=== PATIENT | female | born 1935 | race Hispanic/Latino ===

== ENCOUNTER 2017-04-03 10:18 | Emergency (ER) | payer MEDICARE ==
[2017-04-03 10:27] VITALS: BMI 24.1
--- NOTE | 2017-04-03 10:43 | ED PDOC ---
Arrival/HPI - General Chief Complaint: Dizziness/Lightheaded Time Seen by Provider: 04/03/17 10:42 Historian: Patient, Family (Daughter) - History of Present Illness Narrative History of Present Illness (Text): 04/03/17 10:47 A 81 year old female was brought into the emergency department by daughter for further evaluation. Daughter reports patient accidentally took a higher dose of Promethazine with codeine last night. Patient states she felt "woozy and drunk" . Patients symptoms have fully resolved. Patient denies any fever, chills, nausea, vomiting, diarrhea, abdominal pain, chest pain, shortness of breath or any other complaints. PMD: Dr. Beckford Time/Duration: Other (Last night) Symptom Course: Resolved Quality: Other Context: Home Past Medical History - Provider Review Nursing Documentation Reviewed: Yes - Tetanus Immunization Tetanus Immunization: Unknown - Cardiac Hx Pacemaker: No - Pulmonary Hx Respiratory Disorders: No - Neurological Hx Paralysis: No - HEENT Hx HEENT Disorder: No - Renal Hx Renal Disorder: No - Endocrine/Metabolic Hx Endocrine Disorders: Yes Hx Hypothyroidism: Yes - Hematological/Oncological Hx Blood Transfusions: No Hx Blood Transfusion Reaction: No - Integumentary Hx Dermatological Disorder: No - Musculoskeletal/Rheumatological Hx Musculoskeletal Disorders: No - Gastrointestinal Hx Gastrointestinal Disorders: No - Genitourinary/Gynecological Hx Genitourinary Disorders: No - Psychiatric Hx Emotional Abuse: No Hx Physical Abuse: No Hx Substance Use: No - Surgical History Hx Cardiac Catheterization: Yes (stent) Hx Cholecystectomy: Yes Hx Hysterectomy: Yes - Anesthesia Hx Anesthesia Reactions: No Hx Malignant Hyperthermia: No - Suicidal Assessment Feels Threatened In Home Enviroment: No Family/Social History - Physician Review Nursing Documentation Reviewed: Yes Family/Social History: No Known Family HX Smoking Status: Never Smoked Hx Alcohol Use: No Hx Substance Use: No Hx Substance Use Treatment: No Allergies/Home Meds Allergies/Adverse Reactions: Allergies erythromycin base Allergy (Verified 12/07/15 18:01) VOMITING shellfish derived Allergy (Verified 12/07/15 18:01) VOMITING zolpidem tartrate [From Ambien] Allergy (Verified 12/07/15 18:01) RASH Home Medications: Home Meds Medication Instructions Recorded Confirmed Isosorbide Mononitrate [Imdur] 30 mg PO DAILY 03/16/12 04/03/17 Warfarin [Coumadin] 3 mg PO DAILY 03/16/12 04/03/17 Atorvastatin [Lipitor] 20 mg PO DAILY 03/30/15 04/03/17 Losartan [Cozaar] 50 mg PO DAILY 03/30/15 04/03/17 Omeprazole Magnesium [Prilosec Otc] 20 mg PO DAILY 03/30/15 04/03/17 Vit A/Vit C/Vit E/Zinc/Copper 1 tab PO DAILY 03/30/15 04/03/17 [Preservision] Warfarin [Coumadin] 6 mg PO WED 03/30/15 04/03/17 Albuterol/Ipratropium [Combivent 1 spr IH TID 12/07/15 04/03/17 Respimat] Aspirin [[place] Aspirin] 81 mg PO DAILY 12/07/15 04/03/17 Bifidobacterium Infantis [Align] 4 mg PO HS 12/07/15 04/03/17 Calcium Carbonate [Caltrate 600] 600 mg PO DAILY 12/07/15 04/03/17 Eszopiclone [Lunesta] 3 mg PO HS 12/07/15 04/03/17 Levothyroxine Sodium [Synthroid] 125 mcg PO DAILY 12/07/15 04/03/17 Nitroglycerin 0.4 mg SL PRN PRN 12/07/15 04/03/17 Physical Exam - Physical Exam Narrative Physical Exam (Text): - Review of Systems Constitutional: Normal. absent: Fatigue, Weight Change, Fevers Eyes: Normal ENT: Normal Respiratory: Normal absent: SOB, Cough, Sputum Cardiovascular: Normal absent: Chest pain, Palpitations, Syncope Gastrointestinal: Normal absent: Abdominal pain, Diarrhea, Nausea, Vomiting Genitourinary: Normal. absent: Dysuria, Frequency, Hematuria Musculoskeletal: Normal. absent: Arthralgias, Back Pain, Neck Pain Skin: Normal Neurological: Normal absent: Focal Weakness Endocrine: Normal Hemo/Lymphatic: Normal Psychiatric: Normal - Physical exam Patient appears age appropriate, speaking full sentences without difficulty - Systems Exam Head: Present: Atraumatic, Normocephalic Pupils: Present: PERRL Extraocular Muscles: Present: EOMI Conjunctiva: Present: Normal Mouth: Present: Moist Mucous Membranes Neck: Present: Normal Range of Motion. No: MIDLINE TENDERNESS, Paraspinal Tenderness Respiratory/Chest: Present: Clear to Auscultation, Good Air Exchange. No: Respiratory Distress, Accessory Muscle Use, Tachypnic Cardiovascular: Present: Regular Rate and Rhythm, Normal S1, S2, Peripheral Pulses Present. No: Murmurs Abdomen: Present: Normal Bowel Sounds, No: Tenderness, Peritoneal Signs, Rebound, Guarding, Distention Back: Present: Normal Inspection. No: Midline Tenderness, Paraspinal Tenderness Upper Extremity: Present: Normal Inspection. No: Cyanosis, Edema Lower Extremity: Present: Normal Inspection. No: Edema Neurological: Present: GCS=15, Speech Normal, cranial nerves II through XII fully intact with no cerebellar abnormality, neuro-sensory fully intact. No focal neurological deficits. Skin: Present: Warm, Dry, Normal Color. No: Rashes Lymphatic: Present: OX3, NI, NC Psychiatric: Present: Alert, Oriented x 3, Normal Insight, Normal Concentration Vital Signs Reviewed: Yes Vital Signs Temp Pulse Resp BP Pulse Ox 04/03/17 11:07 98 F 75 20 123/71 100 04/03/17 11:04 97 F L 74 19 125/71 100 04/03/17 10:24 105 H 16 143/58 L 97 Blood Pressure: Hypotensive Pulse: Tachycardic Respiratory Rate: Normal Appearance: Positive for: Well-Appearing, Non-Toxic, Comfortable Pain Distress: None Mental Status: Positive for: Alert and Oriented X 3 Finger Stick Blood Glucose: 128 Medical Decision Making ED Course and Treatment: 04/03/17 10:47 Impression: A 81 year old female reports she accidentally took a higher dose of Promethazine with codeine last night. Symptoms fully resolved. On exam, patient appears normal, no focal neurological deficits. Symptoms likely due to medication side effect. Progress Notes: I have discussed the plan with the patient, who expresses understanding. Patient in agreement with plan to be discharged home. Patient is stable for discharge. Patient was instructed to follow up with physician or return if symptoms worsen or new concerning symptoms arise. - Scribe Statement The provider has reviewed the documentation as recorded by the Mary Desai Provider Scribe Attestation: All medical record entries made by the Scribe were at my direction and personally dictated by me. I have reviewed the chart and agree that the record accurately reflects my personal performance of the history, physical exam, medical decision making, and the department course for this patient. I have also personally directed, reviewed, and agree with the discharge instructions and disposition. Disposition/Present on Arrival - Present on Arrival Any Indicators Present on Arrival: No History of DVT/PE: No History of Uncontrolled Diabetes: No Urinary Catheter: No History of Decub. Ulcer: No History Surgical Site Infection Following: None - Disposition Have Diagnosis and Disposition been Completed?: Yes Diagnosis: Medication adverse effect Disposition: HOME/ ROUTINE Disposition Time: 10:42 Patient Plan: Discharge Condition: GOOD Discharge Instructions (ExitCare): Promethazine/Codeine (By mouth) Additional Instructions: PLEASE RETURN TO THE EMERGENCY DEPARTMENT FOR NEW OR WORSENING SYMPTOMS. RETURN RIGHT AWAY IF YOU CANNOT FOLLOW UP WITH YOUR PRIMARY CARE DOCTOR, CLINIC, OR SPECIALIST IN 1-2 DAYS. Referrals: Fredy Beckford MD [Staff Provider] - Follow up with primary
[2017-04-03 11:13] VITALS: BP 123/71; PULSE 75; RESP 20; TEMP 98; O2SAT 100
== END 2017-04-03 11:09 | disposition home or self-care (01) ==
LOC: ED 10:18
DX: R42 Dizziness and giddiness (principal); T43.3X5A Adverse effect of phenothiazine antipsychotics and neuroleptics, initial encounter; Y92.009 Unspecified place in unspecified non-institutional (private) residence as the place of occurrence of the external cause

== ENCOUNTER 2017-04-17 12:52 | Inpatient (IN) | payer MEDICARE ==
--- NOTE | 2017-04-17 13:03 | ED PDOC ---
Arrival/HPI - General Chief Complaint: Weakness/Neurological Deficit Time Seen by Provider: 04/17/17 12:57 Past Medical History - Provider Review Nursing Documentation Reviewed: Yes - Infectious Disease Hx of Infectious Diseases: None - Tetanus Immunization Tetanus Immunization: Unknown - Cardiac Hx Pacemaker: No - Pulmonary Hx Respiratory Disorders: No - Neurological Hx Paralysis: No - HEENT Hx HEENT Disorder: No - Renal Hx Renal Disorder: No - Endocrine/Metabolic Hx Endocrine Disorders: Yes Hx Hypothyroidism: Yes - Hematological/Oncological Hx Blood Transfusions: No Hx Blood Transfusion Reaction: No - Integumentary Hx Dermatological Disorder: No - Musculoskeletal/Rheumatological Hx Musculoskeletal Disorders: No - Gastrointestinal Hx Gastrointestinal Disorders: No - Genitourinary/Gynecological Hx Genitourinary Disorders: No - Psychiatric Hx Emotional Abuse: No Hx Physical Abuse: No Hx Substance Use: No - Surgical History Hx Cardiac Catheterization: Yes (stent) Hx Cholecystectomy: Yes Hx Hysterectomy: Yes - Anesthesia Hx Anesthesia: Yes Hx Anesthesia Reactions: No Hx Malignant Hyperthermia: No - Suicidal Assessment Feels Threatened In Home Enviroment: No Family/Social History - Physician Review Nursing Documentation Reviewed: Yes Family/Social History: Unknown Family HX Smoking Status: Never Smoked Hx Alcohol Use: No Hx Substance Use: No Hx Substance Use Treatment: No Allergies/Home Meds Allergies/Adverse Reactions: Allergies erythromycin base Allergy (Verified 12/07/15 18:01) VOMITING shellfish derived Allergy (Verified 12/07/15 18:01) VOMITING zolpidem tartrate [From Ambien] Allergy (Verified 12/07/15 18:01) RASH Home Medications: Home Meds Medication Instructions Recorded Confirmed Isosorbide Mononitrate [Imdur] 30 mg PO DAILY 03/16/12 04/17/17 Warfarin [Coumadin] 3 mg PO DAILY 03/16/12 04/17/17 Atorvastatin [Lipitor] 20 mg PO DAILY 03/30/15 04/17/17 Losartan [Cozaar] 50 mg PO DAILY 03/30/15 04/17/17 Omeprazole Magnesium [Prilosec Otc] 20 mg PO DAILY 03/30/15 04/17/17 Vit A/Vit C/Vit E/Zinc/Copper 1 tab PO DAILY 03/30/15 04/17/17 [Preservision] Warfarin [Coumadin] 6 mg PO WED 03/30/15 04/17/17 Albuterol/Ipratropium [Combivent 1 spr IH TID 12/07/15 04/17/17 Respimat] Aspirin [[place] Aspirin] 81 mg PO DAILY 12/07/15 04/17/17 Bifidobacterium Infantis [Align] 4 mg PO HS 12/07/15 04/17/17 Calcium Carbonate [Caltrate 600] 600 mg PO DAILY 12/07/15 04/17/17 Eszopiclone [Lunesta] 3 mg PO HS 12/07/15 04/17/17 Levothyroxine Sodium [Synthroid] 125 mcg PO DAILY 12/07/15 04/17/17 Nitroglycerin 0.4 mg SL PRN PRN 12/07/15 04/17/17 amLODIPine [Norvasc] 5 mg PO DAILY 04/17/17 04/17/17 Physical Exam Vital Signs Temp Pulse Resp BP Pulse Ox 04/17/17 13:33 98.4 F 86 19 134/93 H 95 04/17/17 13:18 94 H 20 134/93 H 97 Medical Decision Making ED Course and Treatment: 04/17/17 12:55 Impression: Differential Diagnosis included but are not limited to: Plan: -- Head CT -- Chest X-ray -- EKG -- Labs -- Reassess and disposition Prior Visits: Notes and results from previous visits were reviewed. On 04/03/17 patient was seen in the emergency department for further evaluation after taking stronger dose of promethazine with codeine. Patient was discharged home. Progress Notes: PROCEDURE: CT HEAD WITHOUT CONTRAST. Radiator Specialist : Max Contreras MD Report Date : 04/17/2017 13:29:47 COMPARISON: 12/07/2015 FINDINGS: HEMORRHAGE:No intracranial hemorrhage. BRAIN:No mass effect or edema. Moderate diffuse atrophy. Moderate periventricular and deep chronic microvascular white matter ischemic change. No evidence of acute infarct. VENTRICLES:Unremarkable. No hydrocephalus. CALVARIUM:Unremarkable. PARANASAL SINUSES:Unremarkable as visualized. No significant inflammatory changes. MASTOID AIR CELLS:Unremarkable as visualized. No inflammatory changes. OTHER FINDINGS:None. IMPRESSION:No intracranial mass, hemorrhage or evidence of acute infarct. No interval change from prior head CT examination Findings in this examination were discussed, by telephone, with Dr. Lyle at 1:27 p.m. on 04/17/2017 - Lab Interpretations Lab Results: 04/17/17 13:02 04/17/17 13:02 Lab Results 04/17/17 13:02: Sodium 129 L, Potassium 4.0, Chloride 94 L, Carbon Dioxide 26, Anion Gap 13, BUN 12, Creatinine 0.7, Est GFR ( Amer) > 60, Est GFR (Non- Af Amer) > 60, Random Glucose 111 H, Calcium 8.7, Total Bilirubin 0.8, AST 46 H , ALT 34, Alkaline Phosphatase 84, Troponin I < 0.01, Total Protein 7.2, Albumin 3.6, Globulin 3.7, Albumin/Globulin Ratio 1.0 L, Triglycerides 61, Cholesterol 113 L, LDL Cholesterol Direct 38, HDL Cholesterol 48 04/17/17 13:02: PT 31.9 H*, INR 2.95 H, APTT 52.9 H 04/17/17 13:02: WBC 11.8 H D, RBC 3.70, Hgb 11.1 L, Hct 32.5 L, MCV 87.8, MCH 30.0, MCHC 34.2, RDW 14.3, Plt Count 200, MPV 9.8, Neutrophils % (Manual) Pending, Lymphocytes % (Manual) Pending, Monocytes % (Manual) Pending I have reviewed the lab results: Yes - RAD Interpretation Radiology Orders: 04/17/17 12:57 HEAD W/O (CODE STROKE) [CT] Stat CHEST PORTABLE [RAD] Stat - EKG Interpretation Interpreted by ED Physician: Yes - Scribe Statement The provider has reviewed the documentation as recorded by the Torresibtaylor [place] Provider Scribe Attestation: All medical record entries made by the Scribtaylor were at my direction and personally dictated by me. I have reviewed the chart and agree that the record accurately reflects my personal performance of the history, physical exam, medical decision making, and the department course for this patient. I have also personally directed, reviewed, and agree with the discharge instructions and disposition. Disposition/Present on Arrival - Present on Arrival History of DVT/PE: No History of Uncontrolled Diabetes: No Urinary Catheter: No History of Decub. Ulcer: No History Surgical Site Infection Following: None - Disposition Referrals: Fredy Beckford MD [Primary Care Provider] - Follow up with primary
[2017-04-17 13:19] LABS: ALBUMIN 3.6 g/dL (3.0-4.8); ALT/SGPT 34 U/L (7-56); AST/SGOT 46 U/L (15-39); BLOOD UREA NITROGEN 12 mg/dL (7-21); CALCIUM 8.7 mg/dL (8.4-10.5); GFR AFRICAN-AMERICAN > 60; GFR NON-AFRICAN AMERICAN > 60; HDL CHOLESTEROL 48 mg/dL (29-60)
[2017-04-17 13:22] LABS: HEMOGLOBIN 11.1 gm/dL (12.0-16.0); MEAN CELL VOLUME 87.8 fL (80.0-105.0); MEAN CORPUSCULAR HGB CONC 34.2 g/dl (31.0-37.0); MEAN PLATELET VOLUME 9.8 fl (7.0-11.0); PLATELET COUNT 200 10^3/uL (120.0-450.0); RED CELL DISTRIBUTION WIDTH 14.3 % (11.5-14.5); WHITE BLOOD COUNT 11.8 10^3/ul (4.5-11.0)
[2017-04-17 13:23] LABS: INR 2.95 (0.93-1.08); PARTIAL THROMBOPLASTIN TIME 52.9 Seconds (23.7-30.8); PROTHROMBIN TIME 31.9 Seconds (9.9-11.8)
[2017-04-17 13:30] LABS: LDL CHOLESTEROL 38 mg/dL (0-129); TROPONIN I < 0.01 ng/mL
--- NOTE | 2017-04-17 13:31 | CT ---
PROCEDURE: CT HEAD WITHOUT CONTRAST. HISTORY: Code Stroke COMPARISON: 12/07/2015 TECHNIQUE: Axial computed tomography images were obtained through the head/brain without intravenous contrast. Radiation dose: Total exam DLP = 779.93 mGy-cm. This CT exam was performed using one or more of the following dose reduction techniques: Automated exposure control, adjustment of the mA and/or kV according to patient size, and/or use of iterative reconstruction technique. FINDINGS: HEMORRHAGE: No intracranial hemorrhage. BRAIN: No mass effect or edema. Moderate diffuse atrophy. Moderate periventricular and deep chronic microvascular white matter ischemic change. No evidence of acute infarct. VENTRICLES: Unremarkable. No hydrocephalus. CALVARIUM: Unremarkable. PARANASAL SINUSES: Unremarkable as visualized. No significant inflammatory changes. MASTOID AIR CELLS: Unremarkable as visualized. No inflammatory changes. OTHER FINDINGS: None. IMPRESSION: No intracranial mass, hemorrhage or evidence of acute infarct. No interval change from prior head CT examination Findings in this examination were discussed, by telephone, with Dr. Lyle at 1:27 p.m. on 04/17/2017.
[2017-04-17 13:47] LABS: LYMPHOCYTE 10 % (22.0-35.0); MONOCYTE 23 % (1.0-6.0); NEUTROPHIL 67 % (50.0-70.0); PLATELET ESTIMATE NORMAL (NORMAL)
[2017-04-17 13:48] LABS: LARGE PLATELETS PRESENT
--- NOTE | 2017-04-17 13:54 | ED PDOC ---
Arrival/HPI <Rah Holloway - Last Filed: 04/17/17 17:36> <Jesus Guzman DO - Last Filed: 04/17/17 21:55> - General Chief Complaint: Weakness/Neurological Deficit Time Seen by Provider: 04/17/17 12:57 - History of Present Illness Narrative History of Present Illness (Text): 04/17/17 13:50 Pt is an 81 year old female who presents to emergency department via EMS and accompanied by daughter for "stroke like symptoms" occurring 20 minutes prior to arrival. Pt reports feeling weakness in her left hand with associated numbness primarily in her pinky and ring finger and speech slurring prior to arrival. Pt states her symptoms had resolved by the time she had arrived in the emergency department. She reports feeling similar symptoms 3 days prior lasting only 20 minutes. Pt reports symptom onset was at rest with both episodes. Pt reports that the weakness in her left hand and slurred speech subsided on their own and the numbness resolved with rubbing of her hand. Patient denies head trauma, easy bruising, palpitations, changes in vision, chest pain, shortness of breath, fever or headache. Patient and family deny any previous history of these symptoms outside of the past few days. (Rah Holloway) Past Medical History - Provider Review Nursing Documentation Reviewed: Yes - Infectious Disease Hx of Infectious Diseases: None - Tetanus Immunization Tetanus Immunization: Unknown - Cardiac Hx Cardiac Disorders: Yes Hx Cardiac Arrhythmia: Yes (paroxysmal atrial fibrillation) Hx Pacemaker: No - Pulmonary Hx Respiratory Disorders: No - Neurological Hx Paralysis: No - HEENT Hx HEENT Disorder: No - Renal Hx Renal Disorder: No - Endocrine/Metabolic Hx Endocrine Disorders: Yes Hx Hypothyroidism: Yes - Hematological/Oncological Hx Blood Transfusions: No Hx Blood Transfusion Reaction: No - Integumentary Hx Dermatological Disorder: No Hx Squamous Cell Carcinoma: Yes - Musculoskeletal/Rheumatological Hx Musculoskeletal Disorders: No - Gastrointestinal Hx Gastrointestinal Disorders: No - Genitourinary/Gynecological Hx Genitourinary Disorders: No - Psychiatric Hx Emotional Abuse: No Hx Physical Abuse: No Hx Substance Use: No - Surgical History Hx Cardiac Catheterization: Yes (stent) Hx Cholecystectomy: Yes Hx Hysterectomy: Yes - Anesthesia Hx Anesthesia: Yes Hx Anesthesia Reactions: No Hx Malignant Hyperthermia: No - Suicidal Assessment Feels Threatened In Home Enviroment: No <Rah Holloway - Last Filed: 04/17/17 17:36> Family/Social History - Physician Review Nursing Documentation Reviewed: Yes Family/Social History: Unknown Family HX Smoking Status: Never Smoked Hx Alcohol Use: No Hx Substance Use: No Hx Substance Use Treatment: No <Rah Holloway - Last Filed: 04/17/17 17:36> Allergies/Home Meds <Rah Holloway - Last Filed: 04/17/17 17:36> <Jesus Guzman DO - Last Filed: 04/17/17 21:55> Allergies/Adverse Reactions: Allergies erythromycin base Allergy (Verified 04/17/17 18:09) VOMITING shellfish derived Allergy (Verified 04/17/17 18:09) VOMITING zolpidem tartrate [From Ambien] Allergy (Verified 04/17/17 18:09) RASH Home Medications: Home Meds Medication Instructions Recorded Confirmed Isosorbide Mononitrate [Imdur] 30 mg PO DAILY 03/16/12 04/17/17 Warfarin [Coumadin] 3 mg PO DAILY 03/16/12 04/17/17 Atorvastatin [Lipitor] 20 mg PO DAILY 03/30/15 04/17/17 Losartan [Cozaar] 50 mg PO DAILY 03/30/15 04/17/17 Omeprazole Magnesium [Prilosec Otc] 20 mg PO DAILY 03/30/15 04/17/17 Vit A/Vit C/Vit E/Zinc/Copper 1 tab PO DAILY 03/30/15 04/17/17 [Preservision] Warfarin [Coumadin] 6 mg PO WED 03/30/15 04/17/17 Albuterol/Ipratropium [Combivent 1 spr IH TID 12/07/15 04/17/17 Respimat] Aspirin [[place] Aspirin] 81 mg PO DAILY 12/07/15 04/17/17 Bifidobacterium Infantis [Align] 4 mg PO HS 12/07/15 04/17/17 Calcium Carbonate [Caltrate 600] 600 mg PO DAILY 12/07/15 04/17/17 Eszopiclone [Lunesta] 3 mg PO HS 12/07/15 04/17/17 Levothyroxine Sodium [Synthroid] 125 mcg PO DAILY 12/07/15 04/17/17 Nitroglycerin 0.4 mg SL PRN PRN 12/07/15 04/17/17 amLODIPine [Norvasc] 5 mg PO DAILY 04/17/17 04/17/17 Review of Systems - Review of Systems Constitutional: absent: Fatigue, Fevers Eyes: absent: Vision Changes ENT: absent: Hearing Changes Respiratory: absent: SOB, Cough Cardiovascular: absent: Chest Pain, Palpitations Gastrointestinal: absent: Abdominal Pain, Stool Changes Skin: absent: Rash, Pruritis Neurological: Speech Changes (previous slurring of speech today ), Facial Droop (previous to presentation ). absent: Focal Weakness Psychiatric: absent: Anxiety, Depression <Rah Holloway - Last Filed: 04/17/17 17:36> Physical Exam Vital Signs Reviewed: Yes Temperature: Afebrile Blood Pressure: Hypertensive Pulse: Tachycardic Respiratory Rate: Normal Appearance: Positive for: Well-Appearing Pain Distress: None Mental Status: Positive for: Alert and Oriented X 3 Finger Stick Blood Glucose: 125 - Systems Exam Head: Present: Atraumatic, Normocephalic Pupils: Present: PERRL Extroacular Muscles: Present: EOMI Conjunctiva: Present: Normal Neck: Present: Normal Range of Motion Respiratory/Chest: Present: Clear to Auscultation, Good Air Exchange. No: Respiratory Distress, Accessory Muscle Use Cardiovascular: Present: Regular Rate and Rhythm, Normal S1, S2. No: Murmurs Abdomen: Present: Normal Bowel Sounds. No: Tenderness, Distention, Peritoneal Signs Upper Extremity: Present: Normal Inspection, NORMAL PULSES, Neurovascularly Intact. No: Cyanosis, Edema Lower Extremity: Present: Normal Inspection. No: Edema Neurological: Present: GCS=15, CN II-XII Intact, Speech Normal, Motor Func Grossly Intact, Normal Sensory Function Skin: Present: Warm, Dry, Normal Color. No: Rashes Psychiatric: Present: Alert, Oriented x 3, Normal Insight, Normal Concentration <Rah Holloway - Last Filed: 04/17/17 17:36> Medical Decision Making - Lab Interpretations I have reviewed the lab results: Yes - RAD Interpretation Drawing In Machine Tender Helper: Radiologist - EKG Interpretation Interpreted by ED Physician: Yes Type: 12 lead EKG <Rah Holloway - Last Filed: 04/17/17 17:36> <Jesus Guzman DO - Last Filed: 04/17/17 21:55> ED Course and Treatment: 04/17/17 15:09 Impression: Pt is a 81 year old female with past medical history significant for paroxysmal atrial fibrillation, CAD s/p angioplasty with stents x2 and macular degeneration who presents with an episode 20 minutes prior to arrival of left sided upper extremity weakness and slurring of speech. Differential Diagnosis included but are not limited to: - TIA Plan: - Imaging: CT head without contrast, CXR, EKG - Labs: CBC, CMP, Coag - - Reassess and disposition Progress Notes: - CT report results: PROCEDURE: CT Head without contrast Chief Media Officer : Max Contreras MD Report Date : 04/17/2017 13:29:47 HISTORY:Code Stroke COMPARISON: 12/07/2015 HEMORRHAGE:No intracranial hemorrhage. BRAIN:No mass effect or edema. Moderate diffuse atrophy. Moderate periventricular and deep chronic microvascular white matter ischemic change. No evidence of acute infarct. VENTRICLES:Unremarkable. No hydrocephalus. CALVARIUM:Unremarkable. PARANASAL SINUSES:Unremarkable as visualized. No significant inflammatory changes. MASTOID AIR CELLS:Unremarkable as visualized. No inflammatory changes. OTHER FINDINGS:None. IMPRESSION:No intracranial mass, hemorrhage or evidence of acute infarct. No interval change from prior head CT examination Findings in this examination were discussed, by telephone, with Dr. Lyle at 1:27 p.m. on 04/17/2017. - Admission - Dr. Riggs with Dr. Lucia regarding admission and is agreeable (Rah Holloway) In agreement with resident note, which includes further HPI details. Patient was seen and evaluated with resident, came up with plan and treatment together. (Jesus Guzman DO) - Lab Interpretations Lab Results: 04/17/17 13:02 04/17/17 13:02 Lab Results 04/17/17 14:00: Blood Type Confirm A POSITIVE 04/17/17 13:02: Sodium 129 L, Potassium 4.0, Chloride 94 L, Carbon Dioxide 26, Anion Gap 13, BUN 12, Creatinine 0.7, Est GFR ( Amer) > 60, Est GFR (Non- Af Amer) > 60, Random Glucose 111 H, Calcium 8.7, Total Bilirubin 0.8, AST 46 H , ALT 34, Alkaline Phosphatase 84, Troponin I < 0.01, Total Protein 7.2, Albumin 3.6, Globulin 3.7, Albumin/Globulin Ratio 1.0 L, Triglycerides 61, Cholesterol 113 L, LDL Cholesterol Direct 38, HDL Cholesterol 48 04/17/17 13:02: PT 31.9 H*, INR 2.95 H, APTT 52.9 H 04/17/17 13:02: WBC 11.8 H D, RBC 3.70, Hgb 11.1 L, Hct 32.5 L, MCV 87.8, MCH 30.0, MCHC 34.2, RDW 14.3, Plt Count 200, MPV 9.8, Neutrophils % (Manual) 67, Lymphocytes % (Manual) 10 L, Monocytes % (Manual) 23 H, Platelet Evaluation Normal, Large Platelets Present 04/17/17 12:56: Blood Type A POSITIVE, Antibody Screen Negative, BBK History Checked No verified bt - RAD Interpretation Radiology Orders: 04/17/17 12:57 HEAD W/O (CODE STROKE) [CT] Stat CHEST PORTABLE [RAD] Stat - EKG Interpretation EKG Interpretation (Text): 04/17/17 15:25 Rate of 74 bpm, NSR, No ST elevations or T wave inversions - similar to previous ekg (Rah Holloway) - Medication Orders Current Medication Orders: Acetaminophen (Tylenol 325mg Tab) 650 mg PO Q6H PRN PRN Reason: Fever >100.4 F Amlodipine Besylate (Norvasc) 5 mg PO DAILY [facility] Aspirin (Ecotrin) 81 mg PO DAILY [facility] Aspirin (Aspirin) 325 mg PO DAILY [facility] Atorvastatin Calcium (Lipitor) 20 mg PO DIN [facility] Last Admin: 04/17/17 17:40 Dose: 20 mg Sodium Chloride (Sodium Chloride 0.9%) 1,000 mls @ 50 mls/hr IV .Q20H [facility] Last Admin: 04/17/17 16:20 Dose: 50 mls/hr Isosorbide Mononitrate (Imdur) 30 mg PO DAILY [facility] Losartan Potassium (Cozaar) 50 mg PO DAILY [facility] Last Admin: 04/17/17 16:21 Dose: 50 mg Pantoprazole Sodium (Protonix Ec Tab) 40 mg PO 0630 [facility] Warfarin Sodium (Coumadin) 3 mg PO DAILY [facility] PRN Reason: Protocol Last Admin: 04/17/17 16:24 Dose: 3 mg Warfarin Sodium (Coumadin) 6 mg PO WED [facility] PRN Reason: Protocol Discontinued Medications Aspirin (Aspirin) 325 mg PO STAT STA Stop: 04/17/17 14:56 Last Admin: 04/17/17 15:40 Dose: 325 mg Sodium Chloride (Sodium Chloride 0.9%) 1,000 mls @ 100 mls/hr IV .Q10H [facility] Last Admin: 04/17/17 16:19 Dose: 100 mls/hr Pneumococcal Polyvalent Vaccine (Pneumovax 23 Vaccine) 0.5 ml IM .ONCE ONE Stop: 04/17/17 21:19 rTPA Inclusion/Exclusion - Refusal of Treatment Patient Refused Treatment: No - Inclusion Criteria for Altepase Patient is 18 years or Older: Yes The Clinical Diagnosis of Ischemic Stroke That is Causing a Potentially Disabling Neurological Deficit: No Time of Onset is Well Established to be Less Than 270 Minute Before Treatment Would Begin: Yes Risk/Benefit Discussed With Patient/Family Member Present: Yes <Rah Holloway - Last Filed: 04/17/17 17:36> - Refusal of Treatment Patient Refused Treatment: No - Inclusion Criteria for Altepase Patient is 18 years or Older: Yes The Clinical Diagnosis of Ischemic Stroke That is Causing a Potentially Disabling Neurological Deficit: No Time of Onset is Well Established to be Less Than 270 Minute Before Treatment Would Begin: Yes Risk/Benefit Discussed With Patient/Family Member Present: Yes <Jesus Guzman DO - Last Filed: 04/17/17 21:55> NIHSS Scale ([place]) - How Severe is the Stoke Baseline Level of Consciousness: 0=Alert LOC to Questions: 0=Both comments correct LOC to commands: 0=Obeys both correctly Best Gaze: 0=Normal Visual: 0=No visual loss Facial: 0=Normal Motor Arm - Left: 0=No drift Motor Arm - Right: 0=No drift Motor Leg - Left: 0=No drift Motor Leg - Right: 0=No drift Limb Ataxia: 0=Absent Sensory: 0=Normal Best Language: 0=No aphasia Dysarthia: 0=Normal articulation Extinction & Inattention (Neglect): 0=Normal, no object Score: 0 Risk Level: No Stroke Risk <Rah Holloway - Last Filed: 04/17/17 17:36> - PA / BMX RIDER / Resident Statement SEBASTIEN has reviewed & agrees with the documentation as recorded. SEBASTIEN has examined the patient and agrees with the treatment plan. <Rah Holloway - Last Filed: 04/17/17 17:36> Disposition/Present on Arrival - Present on Arrival Any Indicators Present on Arrival: No History of DVT/PE: No History of Uncontrolled Diabetes: No Urinary Catheter: No History of Decub. Ulcer: No History Surgical Site Infection Following: None - Disposition Have Diagnosis and Disposition been Completed?: Yes Disposition Time: 15:00 Patient Plan: Admission <Rah Holloway - Last Filed: 04/17/17 17:36> - Disposition Disposition Time: 14:00 <Jesus Guzman DO - Last Filed: 04/17/17 21:55> - Disposition Diagnosis: TIA (transient ischemic attack) Disposition: HOSPITALIZED Patient Problems: Current Active Problems Problem Status Onset TIA (transient ischemic attack) Acute Condition: STABLE
--- NOTE | 2017-04-17 13:55 | CP.PCM.PN ---
Subjective - Date & Time of Evaluation Date of Evaluation: 04/17/17 Time of Evaluation: 13:05 - Subjective Subjective: Code Stroke A code stroke was called at 1257 and the residents responded STAT. NIHSS: 2 (Left leg drifts but doesn't hit bed, and Left leg has mild-mod sensation loss) Objective - Vital Signs/Intake and Output Vital Signs (last 24 hours): Temp Pulse Resp BP Pulse Ox 98.4 F 86 19 134/93 H 95 04/17/17 13:33 04/17/17 13:33 04/17/17 13:33 04/17/17 13:33 04/17/17 13:33 - Labs Labs: 04/17/17 13:02 04/17/17 13:02 PT 31.9 Seconds (9.9-11.8) H* 04/17/17 13:02 INR 2.95 (0.93-1.08) H 04/17/17 13:02 APTT 52.9 Seconds (23.7-30.8) H 04/17/17 13:02 - Constitutional Appears: Well, Non-toxic, No Acute Distress - Head Exam Head Exam: ATRAUMATIC, NORMAL INSPECTION, NORMOCEPHALIC - Eye Exam Eye Exam: EOMI, Normal appearance, PERRL Pupil Exam: NORMAL ACCOMODATION - ENT Exam ENT Exam: Mucous Membranes Moist, Normal Exam - Neck Exam Neck Exam: Full ROM - Respiratory Exam Respiratory Exam: Clear to Ausculation Bilateral, NORMAL BREATHING PATTERN. absent: Accessory Muscle Use, Respiratory Distress - Cardiovascular Exam Cardiovascular Exam: RRR, +S1, +S2. absent: Gallop, JVD, Rubs, Murmur - GI/Abdominal Exam GI & Abdominal Exam: Soft, Normal Bowel Sounds. absent: Tenderness - Extremities Exam Extremities Exam: Full ROM, Normal Inspection. absent: Pedal Edema, Tenderness - Neurological Exam Neurological Exam: Alert, Awake, CN II-XII Intact, Normal Gait, Oriented x3, Reflexes Normal Neuro motor strength exam: Left Upper Extremity: 5, Right Upper Extremity: 5, Left Lower Extremity: 5, Right Lower Extremity: 5 Additional comments: NIHSS: 2 (Left leg drifts but doesn't hit bed, and Left leg has mild-mod sensation loss) pt not confused, no facial droop, no difficulty with speech - Psychiatric Exam Psychiatric exam: Normal Affect, Normal Mood - Skin Skin Exam: Normal Color, Warm. absent: Cyanosis, Diaphoretic, Pallor
--- NOTE | 2017-04-17 14:43 | RAD ---
HISTORY: CVA alert COMPARISON: 12/07/2015 FINDINGS: LUNGS: No active pulmonary disease. PLEURA: No significant pleural effusion identified, no pneumothorax apparent. CARDIOVASCULAR: Normal. OSSEOUS STRUCTURES: No significant abnormalities. VISUALIZED UPPER ABDOMEN: Normal. OTHER FINDINGS: None. IMPRESSION: No active disease.
[2017-04-17] MEDS ORDERED: Sodium Chloride 0.9% 1,000 ML IV SCH (15:15)
[2017-04-17] MEDS: Sodium Chloride 0.9% 1,000 ML IV SCH (16:20)
--- NOTE | 2017-04-17 20:29 | CP.PCM.PN ---
Subjective - Date & Time of Evaluation Date of Evaluation: 04/17/17 Time of Evaluation: 20:28 - Subjective Subjective: S:Nurse calls and tells that bladder scan shows accumulaton of 900 cc of urine. Patient is not able to pass urine. Has discomfort in abdomen. Medical record was reviewed. O: Last Vital Signs 3 Temp 98.6 F 04/17/17 20:32 Pulse 80 04/17/17 21:08 Resp 18 04/17/17 20:32 BP 138/62 04/17/17 20:32 Pulse Ox 95 04/17/17 17:00 Awake, alert , not in distress. LUNGS: Normal breathing pattern. ABD: No distension. A:Urinary retention. P:Tang catheter was inserted. Objective - Vital Signs/Intake and Output Vital Signs (last 24 hours): Temp Pulse Resp BP Pulse Ox 98.6 F 78 18 138/62 95 04/17/17 17:00 04/17/17 17:00 04/17/17 17:00 04/17/17 17:00 04/17/17 17:00 - Medications Medications: Current Medications Acetaminophen (Tylenol 325mg Tab) 650 mg PO Q6H PRN PRN Reason: Fever >100.4 F Amlodipine Besylate (Norvasc) 5 mg PO DAILY [facility] Aspirin (Ecotrin) 81 mg PO DAILY [facility] Aspirin (Aspirin) 325 mg PO DAILY [facility] Atorvastatin Calcium (Lipitor) 20 mg PO DIN [facility] Last Admin: 04/17/17 17:40 Dose: 20 mg Sodium Chloride (Sodium Chloride 0.9%) 1,000 mls @ 50 mls/hr IV .Q20H [facility] Last Admin: 04/17/17 16:20 Dose: 50 mls/hr Isosorbide Mononitrate (Imdur) 30 mg PO DAILY [facility] Losartan Potassium (Cozaar) 50 mg PO DAILY [facility] Last Admin: 04/17/17 16:21 Dose: 50 mg Pantoprazole Sodium (Protonix Ec Tab) 40 mg PO 0630 [facility] Warfarin Sodium (Coumadin) 3 mg PO DAILY [facility] PRN Reason: Protocol Last Admin: 04/17/17 16:24 Dose: 3 mg Warfarin Sodium (Coumadin) 6 mg PO WED [facility] PRN Reason: Protocol - Labs Labs: PT 31.9 Seconds (9.9-11.8) H* 04/17/17 13:02 INR 2.95 (0.93-1.08) H 04/17/17 13:02 APTT 52.9 Seconds (23.7-30.8) H 04/17/17 13:02
[2017-04-17 21:18] VITALS: BMI 21.2
[2017-04-17] MEDS ORDERED: Pneumococcal 23-Valent Vaccine IM ONE (21:18)
[2017-04-17 21:35] LABS: TROPONIN I < 0.01 ng/mL
--- NOTE | 2017-04-18 03:30 | HP ---
HISTORY OF PRESENT ILLNESS: The patient is 81 years old who was brought in by the family. According to daughter who lives with mom that she had episode of slurred speech and left facial and right-sided weakness that happened on Wednesday, but it resolved within minute or so, they did not pay much attention. However, she never had stroke in the past, so similar situation happened this morning that she started to have slurred speech and facial weakness along with right-sided weakness, when she noticed second time, daughter called ambulance and was brought to the emergency room. By the time she reached ER, her symptoms are all resolved. *------* was initiated. The patient was started on aspirin and she is already on Coumadin and is therapeutic, but being admitted for further evaluation. PAST MEDICAL HISTORY: She has significant past medical history of: 1. Chronic atrial fibrillation. 2. History of hypertension. 3. Hyperlipidemia. 4. 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 5. Coronary artery disease status post angioplasty. 6. Hypothyroidism. ALLERGIES: SHE IS ALLERGIC TO ERYTHROMYCIN, SHELLFISH, ZOLPIDEM. MEDICATIONS AT HOME: She is on Combivent, atorvastatin 20 mg daily, aspirin 81 mg daily, *------* 4 mg at bedtime, isosorbide 30 mg daily, Lunesta 3 mg at bedtime, levothyroxine 125 mcg daily, omeprazole, nitroglycerin as needed, Cozaar 50 mg daily, Coumadin 6 mg on Wednesday, Warfarin 3 mg otherwise daily, amlodipine 5 mg daily. PAST SURGICAL HISTORY: She is status post appendectomy and cholecystectomy. She also had angioplasty in remote past. SOCIAL HISTORY: She is single, lives with her daughter who is mentally challenged. History of smoking in the remote past, but quit 10 to 15 years ago. She used to smoke 7 to 8 cigarettes daily. REVIEW OF SYSTEMS: Significant for generalized weakness, otherwise, she is feeling okay now. No history of nausea or vomiting. No diarrhea, no hemoptysis. No hematemesis. No chest pain. No shortness of breath. PHYSICAL EXAMINATION: GENERAL: She is awake, and alert, able to communicate. VITAL SIGNS: She is afebrile, pulse 86, respiration 19, blood pressure 134/93. HEENT: She has symmetrical face. Nonicteric sclerae. [place] conjunctiva. LUNGS: Bilateral fair air flow. No rhonchi or crackle. HEART: S1 and S2 audible. ABDOMEN: Soft, nontender. No rebound and no guarding. NEUROLOGIC: She is awake and oriented. LABORATORY DATA: WBC is 11.8, hemoglobin 11.1, hematocrit 32.5 and platelet of 200. Her PT is 31.9, INR 2.95. Chemistry: Sodium 129, potassium 4.0, chloride 94, CO2 of 26, BUN 12, creatinine 0.7, blood sugar of 111. LFTs are within normal limits. Has a total cholesterol 113, LDL 38, HDL 48. CT scan of the brain was done that shows no intracranial mass, hemorrhage or evidence of acute infarct. X-ray of the chest no active disease. ASSESSMENT: 1. Transient ischemic attack, etiology unclear. The patient is in sinus rhythm. She is therapeutic. 2. Hypertension. 3. Hyperlipidemia. 4. Coronary artery disease status post angioplasty. 5. Paroxysmal atrial fibrillation. PLAN: I will renew the patient's usual medications. I will order for carotid Doppler. Cardiology consult by Dr. Schilling is requested. I will order for MRI of the brain also and follow up PT/INR in a.m. Out bed to chair and physical therapy has been requested. Beka Lucia MD
[2017-04-18] MEDS: Pantoprazole 40 mg EC Tab PO SCH (05:53)
[2017-04-18 07:12] LABS: BASO # 0.02 K/mm3 (0.0-2.0); BASO % 0.2 % (0.0-3.0); EOS # 0.1 (0.0-0.7); EOS % 0.6 % (1.5-5.0); GRAN # 5.39 (1.4-6.5); GRAN % 61.9 % (50.0-68.0); HEMOGLOBIN 11.9 gm/dL (12.0-16.0); LYMPH # 1.5 (1.2-3.4); LYMPH % 16.8 % (22.0-35.0); MEAN CELL VOLUME 87.3 fL (80.0-105.0); MEAN CORPUSCULAR HEMOGLOBIN 29.6 pg (25.0-35.0); MEAN CORPUSCULAR HGB CONC 33.9 g/dl (31.0-37.0); MEAN PLATELET VOLUME 9.6 fl (7.0-11.0); MONO # 1.8 (0.1-0.6); MONO % 20.5 % (1.0-6.0); PLATELET COUNT 191 10^3/uL (120.0-450.0); RBC 4.02 10^6/uL (3.5-6.1); RED CELL DISTRIBUTION WIDTH 14.1 % (11.5-14.5); WHITE BLOOD COUNT 8.7 10^3/ul (4.5-11.0)
[2017-04-18 07:16] LABS: PROTHROMBIN TIME 30.9 Seconds (9.9-11.8)
[2017-04-18 07:28] LABS: INR 2.86 (0.93-1.08)
[2017-04-18 07:40] LABS: ALB/GLOB RATIO 0.9 (1.1-1.8); ALBUMIN 3.5 g/dL (3.0-4.8); ALT/SGPT 41 U/L (7-56); AST/SGOT 49 U/L (15-39); BLOOD UREA NITROGEN 8 mg/dL (7-21); CALCIUM 8.7 mg/dL (8.4-10.5); GFR AFRICAN-AMERICAN > 60; GFR NON-AFRICAN AMERICAN > 60
[2017-04-18 07:53] LABS: FREE T4 1.01 ng/dL (0.78-2.19)
[2017-04-18 08:07] LABS: TROPONIN I < 0.01 ng/mL
[2017-04-18] MEDS ORDERED: Gadodiamide 287 MG/ML VIAL (15ML) IV ONE (11:00)
--- NOTE | 2017-04-18 11:36 | CARD ---
APPROVED REPORT EKG Measurement Heart [id number] <Conclusion> Normal sinus rhythm Normal ECG
[2017-04-18] MEDS: Sodium Chloride 0.9% 1,000 ML IV SCH ×2 (11:47→15:27)
--- NOTE | 2017-04-18 13:08 | CP.PCM.CON ---
History of Present Illness - History of Present Illness History of Present Illness: Mrs. Le is an 81-year-old woman with a past medical history of atrial fibrillation (on coumadin), hypertension, dyslipidemia who has been having episodes of left arm stiffness/weakness and dysarthria that are recurrent. According to the patient and her daughter, there is a reported episode of a fall during which the patient may have hit her head 2 weeks ago. This happened in the middle of the night, but the patient's daughter found her on the floor after she yelled for help. The patient does not recall all of the episodes and thinks sometimes she dreams these episodes instead of them being reality. She denies headache, nausea, visual changes, current weakness, or sensory changes. Review of Systems - Review of Systems All systems: reviewed and no additional remarkable complaints except Past Patient History - Infectious Disease Hx of Infectious Diseases: None - Tetanus Immunizations Tetanus Immunization: Unknown - Past Social History Smoking Status: Former Smoker - CARDIAC Hx Cardiac Disorders: Yes Hx Cardia Arrhythmia: Yes (paroxysmal atrial fibrillation) Hx Pacemaker: No - PULMONARY Hx Respiratory Disorders: Yes (SMOKED CIGARETTES. QUIT USED TO SMOKE 7CIG/D) Hx Pneumonia: Yes - NEUROLOGICAL Hx Neurological Disorder: No - HEENT Hx HEENT Problems: Yes Hx Deafness: Yes ([place]) Hx Macular Degeneration: Yes - RENAL Hx Chronic Kidney Disease: No - ENDOCRINE/METABOLIC Hx Endocrine Disorders: Yes Hx Hypothyroidism: Yes - HEMATOLOGICAL/ONCOLOGICAL Hx Blood Disorders: Yes Hx Cancer: Yes (bladder,SQUAMOUS CELL CA L NECK AREA) - INTEGUMENTARY Hx Dermatological Problems: No Hx Squamous Cell: Yes (NECK) - MUSCULOSKELETAL/RHEUMATOLOGICAL Hx Musculoskeletal Disorders: Yes Hx Falls: Yes (2 WEEKS AGO FELL.) Hx Unsteady Gait: Yes - GASTROINTESTINAL Hx Gastrointestinal Disorders: Yes Hx Gall Bladder Disease: Yes (CHOLECYSTECTOMY) Other/Comment: CONSTIPATION - GENITOURINARY/GYNECOLOGICAL Hx Genitourinary Disorders: Yes (URINARY RETENTION,HYSTERECTOMY) Hx Urinary Tract Infection: Yes Other/Comment: SOME INCONTINENCY WEARS DEPENDS - PSYCHIATRIC Hx Psychophysiologic Disorder: Yes (SMOKED CIGARETTES H/O) Hx Emotional Abuse: No Hx Physical Abuse: No Hx Substance Use: No - SURGICAL HISTORY Hx Surgeries: Yes (CARDIAC STENTS X 2,HYSTERECTOMY) Hx Cardiac Catheterization: Yes (stentX2) Hx Cholecystectomy: Yes Hx Hysterectomy: Yes - ANESTHESIA Hx Anesthesia: Yes Hx Anesthesia Reactions: No Hx Malignant Hyperthermia: No Meds Allergies/Adverse Reactions: Allergies Allergy/AdvReac Type Severity Reaction Status Date / Time erythromycin base Allergy VOMITING Verified 04/17/17 18:09 shellfish derived Allergy VOMITING Verified 04/17/17 18:09 zolpidem tartrate Allergy RASH Verified 04/17/17 18:09 [From Ambien] - Medications Medications: Current Medications Acetaminophen (Tylenol 325mg Tab) 650 mg PO Q6H PRN PRN Reason: Fever >100.4 F Last Admin: 04/17/17 22:18 Dose: 650 mg Amlodipine Besylate (Norvasc) 5 mg PO DAILY [facility] Last Admin: 04/18/17 11:49 Dose: 5 mg Atorvastatin Calcium (Lipitor) 20 mg PO DIN [facility] Last Admin: 04/17/17 17:40 Dose: 20 mg Sodium Chloride (Sodium Chloride 0.9%) 1,000 mls @ 50 mls/hr IV .Q20H [facility] Last Admin: 04/18/17 11:47 Dose: 50 mls/hr Isosorbide Mononitrate (Imdur) 30 mg PO DAILY [facility] Last Admin: 04/18/17 11:49 Dose: 30 mg Levothyroxine Sodium (Synthroid) 150 mcg PO 0600 [facility] Losartan Potassium (Cozaar) 50 mg PO DAILY [facility] Last Admin: 04/18/17 11:49 Dose: 50 mg Pantoprazole Sodium (Protonix Ec Tab) 40 mg PO 0630 [facility] Last Admin: 04/18/17 05:53 Dose: 40 mg Physical Exam - Constitutional Appears: Well - Head Exam Head Exam: ATRAUMATIC, NORMAL INSPECTION, NORMOCEPHALIC - Eye Exam Eye Exam: EOMI, Normal appearance, PERRL - ENT Exam ENT Exam: Mucous Membranes Moist, Normal Exam - Respiratory Exam Respiratory Exam: Clear to Auscultation Bilateral, NORMAL BREATHING PATTERN - Cardiovascular Exam Cardiovascular Exam: REGULAR RHYTHM, +S1, +S2 - GI/Abdominal Exam GI & Abdominal Exam: Normal Bowel Sounds, Soft. absent: Tenderness - Rectal Exam Rectal Exam: Deferred - Extremities Exam Extremities exam: Positive for: normal inspection - Back Exam Back exam: NORMAL INSPECTION - Neurological Exam Neurological exam: Abnormal Gait, CN II-XII Intact, Oriented x3 Additional comments: left upper extremity pronator drift and difficulty with fine motor movements. Reflexes are brisk on the left as compared with the right. Plantar response is downgoing bilaterally. Right side strength is normal. - Psychiatric Exam Psychiatric exam: Normal Affect, Normal Mood - Skin Skin Exam: Dry, Intact, Normal Color, Warm Results - Vital Signs Recent Vital Signs: Last Vital Signs Temp 98.2 F 04/18/17 12:00 Pulse 71 04/18/17 12:00 Resp 20 04/18/17 12:00 BP 150/70 04/18/17 12:00 Pulse Ox 95 04/18/17 06:00 - Labs Result Diagrams: 04/18/17 07:00 04/18/17 07:00 Labs: Laboratory Results - last 24 hr 04/17/17 04/18/17 04/18/17 21:00 07:00 07:00 WBC 8.7 D RBC 4.02 Hgb 11.9 L Hct 35.1 L MCV 87.3 MCH 29.6 MCHC 33.9 RDW 14.1 Plt Count 191 MPV 9.6 Gran % 61.9 Lymph % (Auto) 16.8 L [place] % (Auto) 20.5 H Eos % (Auto) 0.6 L Baso % (Auto) 0.2 Gran # 5.39 Lymph # 1.5 [place] # 1.8 H Eos # 0.1 Baso # 0.02 PT 30.9 H* INR 2.86 H Sodium Potassium Chloride Carbon Dioxide Anion Gap BUN Creatinine Est GFR ( Amer) Est GFR (Non-Af Amer) Random Glucose Calcium Total Bilirubin AST ALT Alkaline Phosphatase Lactate Dehydrogenase 811 H Total Creatine Kinase 149 Troponin I < 0.01 Total Protein Albumin Globulin Albumin/Globulin Ratio Free T4 TSH 3rd Generation 04/18/17 04/18/17 07:00 07:00 WBC RBC Hgb Hct MCV MCH MCHC RDW Plt Count MPV Gran % Lymph % (Auto) [place] % (Auto) Eos % (Auto) Baso % (Auto) Gran # Lymph # [place] # Eos # Baso # PT INR Sodium 135 Potassium 3.9 Chloride 104 Carbon Dioxide 23 Anion Gap 12 BUN 8 Creatinine 0.6 Est GFR ( Amer) > 60 Est GFR (Non-Af Amer) > 60 Random Glucose 85 Calcium 8.7 Total Bilirubin 0.7 AST 49 H ALT 41 Alkaline Phosphatase 99 Lactate Dehydrogenase 800 H Total Creatine Kinase 126 Troponin I < 0.01 Total Protein 7.2 Albumin 3.5 Globulin 3.8 Albumin/Globulin Ratio 0.9 L Free T4 1.01 TSH 3rd Generation 10.00 H - Imaging and Cardiology MRI - head Status: Image reviewed by me, Report reviewed by me (Subdural hemorrhage with subarachnoid and some intraparenchymal contusion likely due to injury on the right frontal/temporal region.) Assessment & Plan (1) Subdural hemorrhage Assessment and Plan: This is likely traumatic and is also associated with some contusions and subarachoind blood. The episodes the patient is describing are likely epileptifom in nature. I recommend the followin. Stop coumadin and antiplatelet agents 2. EEG awake and drowsy for 30 mins 3. Start Keppra 500 mg BID 4[address] Repeat CT head in 24 hours without contrast 5. If CT head is stable, may start heparin sub q for DVT Px 6. PT/OT eval 7. Treat headache with Tylenol Thank you. Status: Acute Priority: Medium
[2017-04-18 13:13] LABS: HDL CHOLESTEROL 54 mg/dL (29-60)
[2017-04-18 13:24] LABS: LDL CHOLESTEROL 46 mg/dL (0-129)
--- NOTE | 2017-04-18 13:33 | MRI ---
PROCEDURE: MRI of the brain dated 04/18/2017 HISTORY: TIA. COMPARISON: Comparison made with CT scan brain 04/17/2017. TECHNIQUE: Multiplanar, multisequence MR images of the brain were obtained with and without intravenous contrast enhancement. Approximately 15 cc Omniscan injected for this procedure. This study is limited by motion artifact FINDINGS: HEMORRHAGE: The current study reveals a thin right-sided subdural hematoma which predominant overlies the parietal and right posterior frontal as well as temporal lobes extending to the convexity. In addition, there is some is subarachnoid hemorrhage within the caps of the posterior frontal and parietal sulci as well as what may represent a small amount of cortical surface hemorrhagic contusional changes and some deoxyhemoglobin the latter of which exhibits dark T2 signal. . . DWI: Some faint restricted diffusion changes are seen along the superior convexity in 2 locations on either along the cortical surface and or within the small hemorrhages themselves. BRAIN PARENCHYMA: Moderate-significant diffuse/confluent chronic white matter ischemic changes seen extending peripherally into the deep and subcortical white matter both cerebral hemispheres. There is some extension of these changes into the white matter tracts of both basal nuclei. Multiple more discrete deep and subcortical white matter as well as bilateral basal nuclei and probably some brainstem ischemic changes are also felt to be present. Moderate -significant atrophy. ENHANCEMENT: There appears to be some minimal on dural surface enhancement in the right posterior temporoparietal region which is also felt to be present though and in some areas difficult to distinguish from methemoglobin within this subdural hematoma that exhibits a thin linear the slightly less of bright T1 signal. This suspected dural enhancement is likely reactive. VENTRICLES: No evidence of obstructive hydrocephalus. CRANIUM: No acute calvarial fractures. ORBITS: Changes of right-sided cataract surgery again noted. PARANASAL SINUSES/MASTOIDS: Clear VASCULAR SYSTEM: Visualized major vascular flow voids at skull base are patent. OTHER FINDINGS: None IMPRESSION: Limited motion degraded study There is a small subdural hematoma over the right temporal and right posterior frontoparietal region with small amount of subarachnoid hemorrhage predominately located within the superior sulci right posterior frontoparietal region. There may also be a small posterior frontoparietal cortical surface at hemorrhagic contusion . Moderate to significant chronic white matter, basal nuclei as well as lesser brainstem ischemic changes. Moderate -significant atrophy. Note these findings were discussed with Dr. Cooley at approximately 12:35 p.m. with written down and read back verification.
[2017-04-18] MEDS ORDERED: Phytonadione 10 mg/ml Inj (Adult) SC STA (14:56)
--- NOTE | 2017-04-18 17:03 | CON ---
DATE: 04/17/2017 REASON FOR CONSULTATION: History of coronary artery disease, status post stent 7 years ago, admitted with slurring of speech, possible TIA. BRIEF CLINICAL HISTORY: An 81-year-old female with past medical history of paroxysmal atrial fibrillation on Coumadin, hypertension, hyperlipidemia, history of coronary artery disease, status post angioplasty 7 years ago, stent by [facility] at [facility], history of head and neck tumor, status post radiation in the past, hypothyroidism, came in here because the patient felt slurring of speech twice, so called the daughter who brought here. The patient denies any chest pain, denies any shortness of breath, denies any palpation, but complained that slurring of speech completely resolved after the patient brought to the hospital. PAST MEDICAL HISTORY: Significant for paroxysmal atrial fibrillation on anticoagulation, history of coronary artery disease, history of stent 7 or 8 years ago, being followed by Dr. Beckford for medicine at [place] and Dr. Griselda Perez for cardiology, history of hypertension, hyperlipidemia, history of head and neck cancer, status post radiation in the past, hypothyroidism. CARDIAC WORKUP: The patient states that 3-4 months ago, had extensively worked up by Dr. Griselda Perez *------* a stress test was done and told it was a negative. ALLERGIES: ERYTHROMYCIN, SHELL FISH AND AMBIEN. SOCIAL HISTORY: Smoker many years ago, quit 8 years ago. Denies any history of alcohol abuse. CURRENT MEDICATIONS: The patient is taking Combivent, atorvastatin, aspirin at bedtime, Cozaar, Lunesta, Coumadin 5 mg Wednesday and 3 mg daily, amlodipine 5 mg daily. PAST SURGICAL HISTORY: Significant for appendectomy, cholecystectomy in the past and angioplasty 7 or 8 years ago. REVIEW OF SYSTEMS: As per HPI. PHYSICAL EXAMINATION VITAL SIGNS: Temperature afebrile, heart rate 72, blood pressure 115/70. HEENT: PERRLA intact. NECK: Supple. No carotid bruit. No thyromegaly. CHEST: Clear to auscultation. HEART: S1 and S2 regular. ABDOMEN: Soft. EXTREMITIES: Clubbing and cyanosis negative. LABORATORY DATA: Blood workup as follows: WBC 8.7, hemoglobin 11.9, hematocrit 35.1, platelet count of 191. Chemistry shows sodium 135, potassium 3.9, chloride 104, carbon dioxide 20, anion gap of 12, BUN 8, creatinine is 0.7. TSH 10, troponin 0.01 x3 negative. INR 2.8, since yesterday it has been 2.95. IMPRESSION: An 81-year-old female with past medical history significant for coronary artery disease, status post PTCA 7 or 8 years ago, ex-smoker 9 years ago, history of coronary stent 7 years ago, paroxysmal atrial fibrillation, therapeutic INR, complaining of slurring of speech, possible transient ischemic attack on top of therapeutic INR, diabetes, hypertension, hyperlipidemia, hypothyroidism. RECOMMENDATIONS: Consider MRI to prove the patient really had stroke. We will get echo with bubble study to rule out any PFO as I doubt TIA. The patient states that the stress test and echo [address] [facility]isel[facility] is essentially normal. We will get lipid profile, TSH, hemoglobin A1c. Thank you *------* taking care of the patient. We will follow with you. Further recommendations during the hospital course. Lillian Schilling MD
--- NOTE | 2017-04-18 21:54 | PN ---
DATE: 04/18/2017 HISTORY OF PRESENT ILLNESS: Ms. Le is an 81-year-old female, who was found on the floor by the daughter in the house. She is on Coumadin for atrial fibrillation. CAT scan of the head was negative in the ER. MRI of the brain done today showed left temporoparietal subdural hematoma. There was small subarachnoid hemorrhage. She was evaluated by Neurology. She is therapeutic on Coumadin. She is also on aspirin. She developed hematuria today when she came back from MRI. Grossly bloody urine in the Tang catheter now. No fever or no cough with expectoration. PAST MEDICAL HISTORY: Atrial fibrillation, history of hypertension, hyperlipidemia, history of head and neck cancer status post radiation, coronary artery disease status post angioplasty. ALLERGIES: ERYTHROMYCIN, SHELL FISH, AND ZOLPIDEM. PAST SURGICAL HISTORY: Appendectomy, cholecystectomy, and angioplasty. SOCIAL HISTORY: Lives at home with the daughter. PERSONAL HISTORY: Ex-smoker. Quit 15 years ago. No history of alcohol abuse. MEDICATIONS: Tylenol 650 q. 6 hour p.r.n., Norvasc 5 mg daily, Lipitor 20 mg daily, Lunesta at bedtime, Imdur 20 mg daily, Keppra 500 mg p.o. b.i.d., Synthroid 150 mcg daily, Losartan 50 mg daily, Protonix 40 mg daily, IV *------* 50 mg daily, aspirin 81 mg daily, Coumadin 3 mg daily. REVIEW OF SYSTEMS: As per HPI. Rest of the 12-point review of systems reviewed and negative. PHYSICAL EXAMINATION: GENERAL: Comfortable in bed, in no acute distress. VITAL SIGNS: Temperature 98.1, blood pressure 158/82, heart rate 84 per minute, respiratory rate 18 per minute. HEENT: Normal. Oral mucosa moist. Pallor positive. NECK: No lymphadenopathy. CHEST: Air entry present and equal bilaterally. No added sounds. CARDIOVASCULAR: S1, S2 normal. No murmur. No gallop. ABDOMEN: Soft and nontender. No hepatosplenomegaly. EXTREMITIES: No edema. GENITOURINARY: Tang catheter draining bloody urine. SPINE: Nontender. LABORATORY DATA: White count 11.8 decreased to 8.7, hemoglobin 11.9, hematocrit 35.1, platelet count 191, granulocytes 61%, lymphocytes 16.8%. Sodium 135, potassium 3.9, BUN 8, creatinine 0.6, LDH 800. TSH 10. ASSESSMENT AND PLAN: 1. Right temporoparietal subdural hematoma, subarachnoid hemorrhage small. 2. Atrial fibrillation. 3. On anticoagulation. 4. Therapeutic INR. 5. Anemia. 6. Leukocytosis. 7. Hematuria. PLAN: She has small right parietal subdural hematoma and subarachnoid hemorrhage on MRI. Neurology consultation with Dr. Malone appreciated. She is on Coumadin for atrial fibrillation. She is currently in sinus rhythm. We will discontinue Coumadin, discontinue aspirin. We will give vitamin K 10 mg subq. We will repeat PT INR in the morning. Anticoagulation can be started once the hematoma is stable. Since it is a small bleed, I will hold FFT now. Neuro check q. 4 hours. She had a left hematuria, bladder irrigation. IV fluid at 80 mL an hour for 6 hours. Urology consultation with Dr. Hanna requested. Continue Lipitor 20 mg daily and Keppra 500 mg p.o. b.i.d. Continue other cardiac medications. Isosorbide mono (Imdur) 30 mg daily for hypothyroidism. We will continue Synthroid 150 mcg daily, Protonix 40 mg daily. Discussed with the staff nurse, discussed with the patient, discussed with the daughter at bedside. Sonal Cooley MD
[2017-04-18] MEDS: ESZOPICLONE 3 MG PO SCH (21:59)
[2017-04-18] MEDS ORDERED: Home Med 1 UNIT PO SCH (22:00)
--- NOTE | 2017-04-18 22:56 | CON ---
GENITOURINARY CONSULTATION DATE: 04/18/2017 CHIEF COMPLAINT: Urinary retention. HISTORY OF PRESENT ILLNESS: This is a 81-year-old female who was admitted with history of TIA x2. Nurses noted she had not voided all day, they did a bladder scan on her, there was over a 1000 mL in her bladder. She was not in any acute distress. A Tang catheter was placed, a 1000 mL was drained, and then clamped and subsequently 1800 mL drained. Since then, she has put out 2400 mL, the urine was slightly bloody. No fever or chills. She is nondiabetic. *------* CAT scan showed no intracranial hemorrhage. No evidence of any acute infarcts. The urine is currently clear. Her creatinine is 0.6. I am going to order a renal ultrasound to make sure there is no hydro. I discussed with the daughter and the patient the significance of having this much urine in and not being uncomfortable and that usually indicates a chronic condition and would recommended the Tang catheter be capped and left in when she is discharged to follow up in the office in several weeks, at which point I will arrange the urodynamics on her and can also teach her intermittent catheterization. PAST MEDICAL HISTORY: Significant for chronic atrial fibrillation, she is on Coumadin, hypertension, hyperlipidemia, past history of some type of head and neck tumor treated with radiation, coronary artery disease, she has had angioplasties done. ALLERGIES: SHE HAS ALLERGIES TO ERYTHROMYCIN, SHELLFISH AND AMBIEN. MEDICATIONS: At home, she is on Combivent, Lipitor, Lunesta, Cozaar, levothyroxine, Coumadin and Norvasc. PAST SURGICAL HISTORY: She has had prior appendectomies and cholecystectomies. SOCIAL HISTORY: She no longer smokes, having quit 15 years ago. She used to smoke less than half a pack a day. REVIEW OF SYSTEMS: Significant for generalized weakness. She has no symptoms of *------* head, eye, ears, nose and throat. No cardiac, respiratory or GI symptoms. No symptoms referable to her skin. LABORATORY DATA: Shows a white count of 8700. She currently is on no antibiotics, but since the Tang will be indwelling, I would not treat it unless she had evidence of fever or high white count. IMPRESSION AND PLAN: Chronic retention. I would keep the Tang indwelling on discharge. She is to follow up in our office in approximately 2 weeks for urodynamics and also I will teach her intermittent catheterization, so she does not have to have the Tang indwelling and will see what kind of return of bladder function she has. Hematuria after drainage of chronic retention is not uncommon due to some of the submucosal veins bleeding after the hydrostatic pressure is released. I am going to order renal ultrasound just to check on any possible hydronephrosis. Artis Hanna MD
[2017-04-19] MEDS: Sodium Chloride 0.9% 1,000 ML IV SCH (03:42)
[2017-04-19] MEDS: Pantoprazole 40 mg EC Tab PO SCH (06:08)
[2017-04-19] MEDS: Levothyroxine 150 MCG TAB PO SCH (06:09)
[2017-04-19 06:38] LABS: BASO # 0.03 K/mm3 (0.0-2.0); BASO % 0.4 % (0.0-3.0); EOS # 0.1 (0.0-0.7); EOS % 0.8 % (1.5-5.0); HEMOGLOBIN 11.6 gm/dL (12.0-16.0); LYMPH # 1.4 (1.2-3.4); LYMPH % 18.3 % (22.0-35.0); MEAN CELL VOLUME 88.4 fL (80.0-105.0); MEAN CORPUSCULAR HEMOGLOBIN 29.2 pg (25.0-35.0); MEAN PLATELET VOLUME 9.9 fl (7.0-11.0); MONO # 1.4 (0.1-0.6); MONO % 17.5 % (1.0-6.0); PLATELET COUNT 215 10^3/uL (120.0-450.0); RBC 3.97 10^6/uL (3.5-6.1); RED CELL DISTRIBUTION WIDTH 14.2 % (11.5-14.5); WHITE BLOOD COUNT 7.8 10^3/ul (4.5-11.0)
[2017-04-19 06:41] LABS: ALB/GLOB RATIO 0.9 (1.1-1.8); ALBUMIN 3.4 g/dL (3.0-4.8); ALT/SGPT 43 U/L (7-56); AST/SGOT 56 U/L (15-39); BLOOD UREA NITROGEN 9 mg/dL (7-21); CALCIUM 8.7 mg/dL (8.4-10.5); GFR AFRICAN-AMERICAN > 60; GFR NON-AFRICAN AMERICAN > 60
[2017-04-19 06:43] LABS: INR 2.17 (0.93-1.08); PROTHROMBIN TIME 23.4 Seconds (9.9-11.8)
--- NOTE | 2017-04-19 10:10 | US ---
PROCEDURE: Ultrasound of the Kidneys HISTORY: r/o hydro COMPARISON: None available. TECHNIQUE: Sonogram of the kidneys. FINDINGS: RIGHT KIDNEY: Measures: 9.3 x 4.1 x 4.6 cm. Normal in size, contour and echogenicity. No stone, solid mass lesion or hydronephrosis visualized. LEFT KIDNEY: Measures: 12.0 x 3.5 x 5.6 yes cm. Normal in size, contour and echogenicity. No stone, solid mass lesion or hydronephrosis visualized. OTHER FINDINGS: None. IMPRESSION: Unremarkable renal sonogram.
--- NOTE | 2017-04-19 11:35 | US ---
PROCEDURE: Bilateral carotid artery duplex ultrasound HISTORY: Carotid stenosis syncope PHYSICIAN(S): Max Dickson MD. TECHNIQUE: Duplex sonography and color-flow Doppler were used to evaluate the carotid bifurcations and limited segments of the vertebral arteries bilaterally. FINDINGS: There is mild to moderate focal echogenic plaque noted at the carotid bifurcations bilaterally. The peak systolic velocity in the proximal right internal carotid artery is 95 cm/sec. This corresponds to a 20 to 39% proximal right ICA stenosis. Mildly elevated systolic velocities are noted in the proximal right external carotid artery. There is antegrade flow in the dominant right vertebral artery. The peak systolic velocity in the proximal left internal carotid artery is 90 cm/sec. This corresponds to a 20 to 39% proximal left ICA stenosis. Normal systolic velocities are noted in the proximal left external carotid artery. There is antegrade flow in the small left vertebral artery. IMPRESSION: 1. Bilateral 20-39% proximal ICA stenoses. 2. Antegrade flow in both vertebral arteries.
--- NOTE | 2017-04-19 14:26 | CARD ---
APPROVED REPORT EXAM: Two-dimensional and M-mode echocardiogram with Doppler and color Doppler. 2D DIMENSIONS Left Atrium (2D)3.7 (1.6-4.0cm)IVSd1.0 (0.7-1.1cm) LVDd3.6 (3.9-5.9cm)PWd0.9 (0.7-1.1cm) LVDs2.2 (2.5-4.0cm)FS (%) 38.5 % LVEF (%)69.6 (>50%) M-Mode DIMENSIONS Aortic Root2.20 (2.2-3.7cm)Aortic Cusp Exc.1.30 (1.5-2.0cm) Aortic Valve AoV Peak Epdhzqvk362.0cm/Artem Peak GR.15mmHg Mitral Valve MV E Svmlguhv39.8cm/sMV A Xmpjjuya96.1cm/sE/A ratio1.4 TDI E/Lateral E'0.0E/Medial E'0.0 Tricuspid Valve TR Peak Lqhfzgwo300us/sRAP [id number] Peak Gr.29mmHg [id number] LEFT VENTRICLE The left ventricle is normal size. There is borderline concentric left ventricular hypertrophy. The left ventricular function is normal.EF-65-70% There is normal LV segmental wall motion. The left ventricular diastolic function is normal. No left ventricle thrombus noted on this study. There is no ventricular septal defect visualized. There is no left ventricular aneurysm. There is no mass noted in the left ventricle. RIGHT VENTRICLE The right ventricle is mildly dilated. There is normal right ventricular wall thickness. The right ventricular systolic function is normal. ATRIA The left atrium is borderline dilated in long axis The right atrium is borderline dilated in [place] The interatrial septum is intact with no evidence for an atrial septal defect, by colr flow and Bubble study. AORTIC VALVE The aortic valve is thickened but opens well. There is mild aortic regurgitation. There is no aortic valvular stenosis. There is no aortic valvular vegetation. MITRAL VALVE The mitral valve is thickened but opens well. Mitral regurgitation is mild. There is no mitral valve stenosis. There is no evidence of mitral valve prolapse. TRICUSPID VALVE The tricuspid valve leaflets are thickened , but open well. There is mild to moderate tricuspid regurgitation.RVSP-39 mmof hg. There is no tricuspid valve stenosis. There is no tricuspid valve prolapse or vegetation. PULMONIC VALVE The pulmonic valve is mildly thickened. There is trace pulmonic valvular regurgitation. There is no pulmonic valvular stenosis. GREAT VESSELS The aortic root is normal in size. The ascending aorta is normal in size. The pulmonary artery is normal. The IVC is normal in size and collapses >50% with inspiration. PERICARDIAL EFFUSION There is no pleural effusion. There is no pericardial effusion. <Conclusion> There is borderline concentric left ventricular hypertrophy. The left ventricular function is normal.EF-65-70% The right ventricle is mildly dilated. The right ventricular systolic function is normal. There is mild aortic regurgitation. There is no aortic valvular stenosis. Mitral regurgitation is mild. There is mild to moderate tricuspid regurgitation.RVSP-39 mmof hg. There is no pericardial effusion. The interatrial septum is intact with no evidence for an atrial septal defect, by colr flow and Bubble study.
--- NOTE | 2017-04-19 14:49 | PN ---
SUBJECTIVE: The patient is an 81-year-old female who is seen and examined. She complained of generalized weakness, otherwise doing well. No focal deficits. Eating and tolerating. PHYSICAL EXAMINATION VITAL SIGNS: The patient is afebrile. Pulse is 94, respirations are 18, and blood pressure is 129/71. LUNGS: Bilateral fair airflow. No rhonchi or crackles. HEENT: S1 and S2 audible. ABDOMEN: Soft and nontender. No rebound. No guarding. NEUROLOGIC: The patient is awake and alert. Moves all extremity. LABORATORY DATA: WBC is 7.8, hemoglobin is 11.6, hematocrit is 35.1, and platelet count is 215. PT is 23.4 and INR is 2.17. Chemistries: Sodium of 134, potassium of 4.1, chloride of 103, CO2 of 25, BUN of 9, creatinine of 0.6, and blood sugar of 83. TSH is 10 and her T4 is 1.01. LDH is 800. DIAGNOSTIC DATA: She had a MRI of the brain done that shows small subdural hematoma, over the right temporal on the right posterior frontotemporal region with small amount of subarachnoid hemorrhage predominately located within the right posterior frontoparietal region. There is a possibility of posterior frontoparietal cortical hemorrhagic continue, lrytrfej-uk-hgcndq chronic white matter disease, and ischemic changes in the brain stem. Carotid Doppler was done on 04/17/2017 that showed a bilateral carotid 20% to 39%. proximal ICA. ASSESSMENT AND PLAN: 1. Brief period of slurred speech and focal deficit, but completely resolved. 2. Small subdural hematoma on the right temporal and posterior frontoparietal region. 3. Paroxysmal atrial fibrillation. 4. Hypertension. 5. Hypothyroidism. 6. Brief episode of hematuria. 7. Coronary artery disease, status post angioplasty. PLAN: The patient's Coumadin was on hold because of this recent hemorrhage, her hear rate is under good control. I will discuss with the neurologist that how long anticoagulant has to be held. The patient's TSH is suppressed, however T4 is within range give her age and history of atrial fibrillation, I will just repeat TSH and check T3 levels. We will follow up echocardiogram and I will discuss with reinforcing steel worker and neurologist. Beka Lucia MD [facility] # [id number]
--- NOTE | 2017-04-19 17:40 | PN ---
DATE: 04/19/2017 REASON FOR CONSULTATION AND FOLLOWUP: History of coronary artery status post stent several years ago, admitted with slurring of speech, possible TIA, cardia evaluation. BRIEF CLINICAL HISTORY: An 81-year-old female with past medical history significant for paroxysmal atrial fibrillation, on Coumadin admitted with normal sinus, hypertension, hyperlipidemia, therapeutic INR, history of coronary artery disease status post stent 7 years ago being followed by Dr. Griselda Perez yesterday admitted with slurring of the speech. The patient denies any chest pain, shortness of breath, or any palpitation. PHYSICAL EXAMINATION: GENERAL: The patient is lying flat in the bed, not in apparent distress. VITAL SIGNS: Temperature afebrile, heart rate is 78, and blood pressure 129/71. HEENT: PERRLA. Extraocular muscles are intact. NECK: Supple. No carotid bruits or thyromegaly. HEART: S1 and S2. Regular. CHEST: Clear to auscultation. ABDOMEN: Soft. EXTREMITIES: Clubbing and cyanosis negative. LABORATORY DATA: Blood workup as follows: WBC 7.1, hemoglobin 11.6, hematocrit 35.1, and platelet count 215. Chemistry shows sodium 134, potassium 4.1, chloride 103, carbon dioxide of 25, anion gap of 11, BUN 9, and creatinine 0.7. Total protein 7.2, albumin 3.5, albumin-globulin ratio of 0.9, total cholesterol 121, triglycerides 65, LDL 46, and HDL 54. TSH 10. IMPRESSION: 1. Hypothyroidism. 2. No evidence of acute myocardial infarction. Troponin 0.0 x3 negative. 3. History of coronary artery disease, status post stent in the past. 4. History of transient ischemic attack in the past. 5. Paroxysmal atrial fibrillation, on anticoagulation; INR therapeutic, yesterday was 2.86, day before was 2.95, today is 2.17. transient ischemic attack type of symptoms. DIAGNOSTIC DATA: Brain MRI shows rxftxnwf-mc-qermoyqjzpf atrophy, xybggyut-ae-iusupjjbfoo chronic white matter basal nuclei, as well as left brainstem ischemic changes noted. There is small subdural hematoma over the right temporal and right posterior frontoparietal region with a small amount of subarachnoid hemorrhage, predominantly located within the superior sulci, intracerebral ICV and intracerebral bleed. Bilateral carotid Duplex shows 20-39% bilateral ischemia with no significant flow limiting stenosis noted. RECOMMENDATIONS: We will hold Coumadin, neurologic evaluation, yesterday increased levothyroxine from 125 to 150. Continue adequate control of blood pressure. Followup echo. Followup bilateral carotid Duplex scan. We will follow with you. Thank you doctor for providing the opportunity in taking care of the patient, Magda Le. Lillian Schilling MD
[2017-04-19] MEDS: ESZOPICLONE 3 MG PO SCH (21:58)
[2017-04-20] MEDS: Pantoprazole 40 mg EC Tab PO SCH (05:30)
[2017-04-20] MEDS: Levothyroxine 150 MCG TAB PO SCH (05:30)
[2017-04-20 06:15] VITALS: O2SAT 97
[2017-04-20 06:50] LABS: INR 1.25 (0.93-1.08); PROTHROMBIN TIME 13.5 Seconds (9.9-11.8)
--- NOTE | 2017-04-20 12:36 | PN ---
DATE: 04/20/2017 REASON FOR CONSULTATION AND FOLLOWUP: History of coronary artery disease, status post PTCA many years ago, admitted with slurring of speech and a small subdural hematoma. SUBJECTIVE: The patient denies any chest pain, but had felt there is some slurring of speech yesterday, but now resolved. Some chest discomfort yesterday, but no chest pain now. OBJECTIVE: Examination as follows: GENERAL: Lying flat on the bed, not in apparent distress. VITAL SIGNS: Temperature afebrile, heart rate 91, blood pressure 129/69. HEENT: PERRLA. Extraocular muscles intact. NECK: Supple. No carotid bruit. No thyromegaly. CHEST: Clear to auscultation. HEART: S1 and S2 regular. ABDOMEN: Soft. EXTREMITIES: Clubbing and cyanosis negative. LABORATORY DATA: Blood workup as follows: WBC 7.8, hemoglobin 11.5, hematocrit 35.1, and platelet count 215. Chemistry shows sodium 134, potassium 4.1, chloride 103, carbon dioxide of 25, anion gap of 11, BUN 9, and creatinine 0.7. Troponin is 0.01 x3 negative. Total protein 7.2, albumin 3.5, albumin-globulin ratio 0.9. TSH is 10.0. IMPRESSION: An 81-year-old female with a past medical history significant for paroxysmal atrial fibrillation, admitted with normal sinus, therapeutic INR, admitted with slurring of speech, history of coronary artery disease, status post stent, who is being followed by Dr. Griselda red at [facility] for workup of her heart, had a stress test and echo according to her 3 months ago and they are normal. MRI showed a small amount of subdural hemorrhage predominantly located in the superior sulci, right posterior frontoparietal region, could be response for this neurological event and neurological manifestation. The patient had echocardiography done yesterday that showed ejection fraction 65% to 70%, normal left ventricular and right ventricular systolic function, mild aortic regurgitation, no aortic stenosis, mild mitral regurgitation, dpze-yp-laguqerq tricuspid regurgitation, right ventricular systolic pressure 39. No evidence of acute myocardial infarction. No evidence of acute coronary syndrome. History of hypothyroidism at home, patient came in with Levoxyl 125 mcg, but since he had a TSH of 10, so plan is, we will increase Levoxyl to 150 mcg. Continue to hold Coumadin because of recent history of bleed. INR is subtherapeutic 1.25. Patient is in normal sinus. Continue rest of the baseline medication. Bilateral carotid duplex showed mild 20% to 39% bilateral stenosis. PLAN: So at this time, my recommendation is to increase Levoxyl, I have increased to 150 mcg daily. Continue to hold Coumadin for 3 months possibly or as per neurological recommendation. Continue adequate blood pressure control and prevent extension of bleed. Continue low-dose beta-maulik as tolerated. Continue losartan. Continue atorvastatin. No further cardiac workup is planned at this time. The patient is okay to be discharged when stable from a neurological point of view and with a question that when Coumadin can be restarted. If there is increased risk of re-bleed, Coumadin can be held because patient is in normal sinus with a good LV function, CHADS score is moderate as the patient has underlying coronary artery disease . We will also decrease the dose of atorvastatin to 10 mg daily because patient has low cholesterol and LDL also low. Upon discharge, the patient will be followed up with Dr. Griselda Perez group. Discussed with the patient in length and patient said that she will follow with Dr. Perez upon discharge. Thank you Dr. Lucia for providing me the opportunity in taking care of the patient, Magda Le. Lillian Schilling MD
[2017-04-20 17:13] VITALS: BP 123/67; RESP 19; TEMP 97.7
[2017-04-20 18:35] VITALS: PULSE 70
--- NOTE | 2017-04-21 06:26 | DS ---
HISTORY OF PRESENT ILLNESS: The patient is an 81-year-old who was admitted because of 2 episodes of slurred speech and right-sided weakness. The patient's daughter states that almost a week ago, she fell at home, hit her head. She felt fine and she was able to walk after that, so she did not pay any attention; however, on the day admission, on 04/17/2017, she had an episode of slurred speech with facial asymmetry, so daughter called ambulance and she was brought to the emergency room. By the time she reached the ER, her symptoms resolved. However, the patient had a CT scan done that was unremarkable; however, MRI showed that she has a small subdural hematoma over the right temporal and right posterior frontoparietal region with a small amount of subarachnoid hemorrhage, predominantly within the superior sulci in the right posterior frontoparietal region. The patient received physical therapy and it was felt that she will benefit from TCU, so she is being transferred to TCU today. PHYSICAL EXAMINATION: GENERAL: Today, she is awake, alert, oriented, and communicative. VITAL SIGNS: She is afebrile, pulse 75, respirations 20, and blood pressure 109/56. LUNGS: Bilateral fair air flow. No rhonchi or crackle. HEART: S1 and S2 audible. ABDOMEN: Soft and nontender. No rebound. No guarding. NEUROLOGIC: She is awake and alert, communicative. EXTREMITIES: Moves all extremities. GENITOURINARY: She has indwelling catheter that has blood-tinged urine. LABORATORY DATA: Her PT 13.5 and INR 1.25. Chemistry; there is no new chemistry lab available today. ASSESSMENT: 1. Status post fall. 2. Subdural hematoma in the right temporal and right posterior frontoparietal region with a small amount of subarachnoid hemorrhage. 3. Paroxysmal atrial fibrillation. 4. Hematuria, renal ultrasound is unremarkable. 5. Coronary artery disease, status post angioplasty in the remote past. 6. Hypertension. 7. Hypothyroidism. PLAN: We will continue the patient on current medication including losartan, Lunesta, and isosorbide. Keppra 500 twice a day prophylactic for seizure has been started. She had EEG done that is pending. Echocardiogram shows mild mitral regurgitation, lzqt-[id number] tricuspid regurgitation, and no pericardial effusion. The plan is the patient is being to transferred to TCU. We will continue current medications and we will follow up there and she will get physical therapy. Beka Lucia MD [facility] # [id number]
--- NOTE | 2017-04-21 08:15 | EEG ---
ELECTROENCEPHALOGRAM DATE OF SERVICE: 04/20/2017 CONDITION OF THE RECORDING: Drowsy. DIAGNOSIS: Seizure. MEDICATIONS: Reviewed by the nurse per reconciliation sheet. INTERPRETATION: This is a 16-channel international recording. The background activities composed of 6 to 7 cycles per second. There was a small amount of beta activity of 16 to 20 cycles per second during this recording. There was increased amount of theta activity 5 to 7 cycles per seconds seen in this recording. Drowsiness was characterized by mixed beta and theta activities. The sleep was characterized by vertex transients and sleep spindles after slowing. Photic stimulation showed no change in tracing. No paroxysmal activity noted in this recording. CONCLUSION: This is an abnormal EEG due to presence of mild diffuse slowing throughout the recording consistent with mild bilateral cerebral dysfunction. No epileptiform activity noted. Jamarcus Parnell MD
== END 2017-04-20 19:10 | DRG 84 ==
LOC: ED 12:52 → ERH 15:11 → 2RNO 18:23
PROVIDERS: ADMIT Internal Medicine; ATTEND Internal Medicine
DX: S06.5X9A Traumatic subdural hemorrhage with loss of consciousness of unspecified duration, initial encounter (principal); S06.6X9A Traumatic subarachnoid hemorrhage with loss of consciousness of unspecified duration, initial encounter; I48.0 Paroxysmal atrial fibrillation; E11.9 Type 2 diabetes mellitus without complications; I08.3 Combined rheumatic disorders of mitral, aortic and tricuspid valves; D64.9 Anemia, unspecified; I10 Essential (primary) hypertension; E03.9 Hypothyroidism, unspecified; Z86.73 Personal history of transient ischemic attack (TIA), and cerebral infarction without residual deficits; Z91.81 History of falling; D72.829 Elevated white blood cell count, unspecified; E78.5 Hyperlipidemia, unspecified; H35.30 Unspecified macular degeneration; H91.90 Unspecified hearing loss, unspecified ear; I25.10 Atherosclerotic heart disease of native coronary artery without angina pectoris; Z95.5 Presence of coronary angioplasty implant and graft; Z92.3 Personal history of irradiation; Z90.710 Acquired absence of both cervix and uterus; I48.2 Chronic atrial fibrillation; R31.0 Gross hematuria; R33.9 Retention of urine, unspecified; Z79.01 Long term (current) use of anticoagulants; Z79.82 Long term (current) use of aspirin; Z79.899 Other long term (current) drug therapy; Z87.01 Personal history of pneumonia (recurrent); Z87.440 Personal history of urinary (tract) infections; Z90.49 Acquired absence of other specified parts of digestive tract; Z85.51 Personal history of malignant neoplasm of bladder; Z87.891 Personal history of nicotine dependence; Z88.8 Allergy status to other drugs, medicaments and biological substances; Z88.1 Allergy status to other antibiotic agents; Z91.013 Allergy to seafood; R29.702 NIHSS score 2; R40.2412 Glasgow coma scale score 13-15, at arrival to emergency department

== ENCOUNTER 2017-04-20 18:39 | Inpatient (IN) | payer OTHER, MEDICARE ==
[2017-04-20 20:20] VITALS: BMI 21.6
[2017-04-20] MEDS ORDERED: ESZOPICLONE 3 MG PO SCH (22:00)
[2017-04-20] MEDS ORDERED: Pneumococcal 23-Valent Vaccine IM ONE (22:25)
[2017-04-21] MEDS: Pantoprazole 40 mg EC Tab PO SCH (06:28)
[2017-04-21] MEDS: Levothyroxine 150 MCG TAB PO SCH (06:29)
--- NOTE | 2017-04-21 15:05 | CP.PCM.PN ---
Subjective - Date & Time of Evaluation Date of Evaluation: 04/21/17 Time of Evaluation: 14:20 - Subjective Subjective: Rapid response was called on patient at 14:20 on patient. Patient's daughter stated that patient was having right sided facial droop and slurred speech, which was further witnessed by nursing staff. When Medicine Resident and Attending saw patient, no such symptoms were appreciated. Patient was alert, oriented X4, and had no droop. Patient was further able to maintain muscle strength bilaterally in upper extremities and lower extremities. She also had no complaints of loss of sensation, loss of muscle strength, confusion, lethargy , or other focal neurological deficits. From history obtained from patient's daughter and nursing staff, patient tends to have this facial droop about one time every day. Patient had no further complaints. Hx of TIA, so head CT was ordered on patient to r/o any acute process Objective - Vital Signs/Intake and Output Vital Signs (last 24 hours): Temp Pulse Resp BP Pulse Ox 97.6 F 70 18 102/57 L 95 04/21/17 10:00 04/21/17 11:17 04/21/17 10:00 04/21/17 11:17 04/21/17 10:00 Intake and Output: 04/21/17 04/21/17 06:59 18:59 Intake Total 420 Balance 420 - Medications Medications: Current Medications Acetaminophen (Tylenol 325mg Tab) 650 mg PO Q6H PRN; Protocol PRN Reason: Fever >100.4 F Amlodipine Besylate (Norvasc) 5 mg PO DAILY SATHISH PRN Reason: Protocol Last Admin: 04/21/17 11:15 Dose: 5 mg Atorvastatin Calcium (Lipitor) 10 mg PO DIN SATHISH PRN Reason: Protocol Home Med (Home Med) 1 unit PO HS [facility] Isosorbide Mononitrate (Imdur) 30 mg PO 0630 SATHISH PRN Reason: Protocol Last Admin: 04/21/17 06:28 Dose: 30 mg Levetiracetam (Keppra) 500 mg PO BID SATHISH PRN Reason: Protocol Last Admin: 04/21/17 11:16 Dose: 500 mg Levothyroxine Sodium (Synthroid) 150 mcg PO 0600 SATHISH PRN Reason: Protocol Last Admin: 04/21/17 06:29 Dose: 150 mcg Losartan Potassium (Cozaar) 50 mg PO DAILY SATHISH PRN Reason: Protocol Last Admin: 04/21/17 11:16 Dose: 50 mg Metoprolol Tartrate (Lopressor) 12.5 mg PO BID SATHISH PRN Reason: Protocol Last Admin: 04/21/17 11:17 Dose: 12.5 mg Pantoprazole Sodium (Protonix Ec Tab) 40 mg PO 0630 SATHISH PRN Reason: Protocol Last Admin: 04/21/17 06:28 Dose: 40 mg - Constitutional Appears: Well, Non-toxic - Head Exam Head Exam: ATRAUMATIC, NORMAL INSPECTION, NORMOCEPHALIC - Eye Exam Eye Exam: EOMI, Normal appearance, PERRL Pupil Exam: NORMAL ACCOMODATION - ENT Exam ENT Exam: Mucous Membranes Moist, Normal Exam - Neck Exam Neck Exam: Full ROM - Respiratory Exam Respiratory Exam: Clear to Ausculation Bilateral, NORMAL BREATHING PATTERN - Cardiovascular Exam Cardiovascular Exam: REGULAR RHYTHM - GI/Abdominal Exam GI & Abdominal Exam: Soft, Normal Bowel Sounds - Rectal Exam Rectal Exam: Deferred - Extremities Exam Extremities Exam: Full ROM, Normal Capillary Refill, Normal Inspection - Back Exam Back Exam: NORMAL INSPECTION - Neurological Exam Neurological Exam: Alert, Awake, CN II-XII Intact, Normal Gait, Oriented x3 Neuro motor strength exam: Left Upper Extremity: 5, Right Upper Extremity: 5, Left Lower Extremity: 5, Right Lower Extremity: 5 - Psychiatric Exam Psychiatric exam: Normal Affect, Normal Mood - Skin Skin Exam: Intact, Normal Color, Warm - Additional Findings Additional findings: Vitals during rapid response: Temp: 98.2 HR: 62 BP: 104/47 Ox Sat: 97%RA RR: 18 BS: 148 Assessment and Plan - Assessment and Plan (Free Text) Assessment: Assessment: 81 y/o F presents with c/o facial droop 1.) Facial droop - CT Head - Neuro C/S: Dr. Malone - Neuro checks q4
[2017-04-21] MEDS: ESZOPICLONE 3 MG PO SCH (21:11)
--- NOTE | 2017-04-22 01:39 | HP ---
HISTORY OF PRESENT ILLNESS: The patient is an 81-year-old who came to the emergency room after she had a brief episode of slurred speech according to daughter. She fell almost a week ago and hit her head, but she felt okay, so she never came to emergency room, however, on 04/17, she had an episode of slurred speech and had left-sided weakness that was short-lived for few minutes, so she called ambulance and was brought to emergency room. Initial CT scan was negative, however, MRI was done on 04/18 that shows small subdural hematoma of the right temporal and right posterior frontoparietal region. Her echocardiogram shows borderline concentric LVH, ejection fraction of 65% to 70%. Mild aortic regurgitation. The patient was stable, so transferred to TCU yesterday for rehab. PAST MEDICAL HISTORY: She has significant past medical history of, 1. Hypertension. 2. Paroxysmal atrial fibrillation. 3. History of TIA in the past. 4. Coronary artery disease, status post angioplasty. 5. Hypertension. 6. Hyperlipidemia. 7. History of head and neck tumor, status post radiation in the remote past. 8. Coronary artery disease. 9. Hypothyroidism. ALLERGIES: SHE IS ALLERGIC TO ERYTHROMYCIN, SHELLFISH, AND ZOLPIDEM. MEDICATIONS AT HOME: She is on Keppra 500 mg twice a day, amlodipine 5 mg daily, Coumadin 6 mg Wednesday, 3 mg other days. Protonix 40 mg daily, metoprolol 12.5 mg twice a day, losartan 50 mg daily, levothyroxine 125 mcg daily, isosorbide 30 mg daily, Lunesta 3 mg at bedtime, Lipitor 20 mg daily, aspirin 81 daily. SOCIAL HISTORY: She lives with her daughter. Denies smoking or drinking. She used to be a heavy smoker in the past. REVIEW OF SYSTEMS: She is hard of hearing. Denies any chest pain or shortness of breath. PHYSICAL EXAMINATION GENERAL: She is awake and alert. *------* VITAL SIGNS: She is afebrile. Pulse 62, respirations 18, blood pressure 108/55. HEART: S1 and S2 audible. LUNGS: Bilateral fair air flow. No rhonchi or crackles. ABDOMEN: Soft, nontender. No rebound, no guarding. NEUROLOGIC: She is awake and alert. Able to communicate. LABORATORY DATA: Blood sugar is 148. ASSESSMENT: 1. Status post transient ischemic attack. 2. History of fall almost 2 weeks ago causing right temporal frontoparietal small hemorrhage. 3. Chronic atrial fibrillation. 4. Hypertension. 5. Hyperlipidemia. 6. Hypothyroidism. 7. Deconditioning and difficulty walking. PLAN: We will continue her Coumadin, is on hold. We will control her blood pressure *------*. Continue her on Keppra, Lipitor, metoprolol and levothyroxine, and we will reevaluate the patient in a.m. Beka Lucia MD
--- NOTE | 2017-04-22 02:09 | CON ---
DATE: 04/20/2017 CONSULT SERVICE: Cardiology. REASON FOR CONSULTATION: Continuity of care in the transitional care unit, admitted with a TIA type of symptom. BRIEF CLINICAL HISTORY: This is an 81-year-old female with a past medical history significant for paroxysmal atrial fibrillation, history of coronary artery disease and stent placed seven or eight years ago, being followed by Dr. Griselda red, came in initially to the medical floor on 04/17/2017 with a TIA type of symptom, slurring of speech. Workup was essentially negative. PAST MEDICAL HISTORY: Past history significant for paroxysmal atrial fibrillation, on anticoagulation; history of coronary artery disease, stent 7 years ago, being followed by Dr. Beckford at [place] and Dr. Griselda red at [facility]. History of hypertension, hyperlipidemia, history of head and neck cancer status post radiation and chemo, history of hypothyroidism. Previous cardiac workup as follows: The patient stated that she had a workup including stress test and echo done by Dr. Griselda Perez in her office and found to be negative. Recent, the patient had a repeat echocardiography done here on 04/19/2017 that showed ejection fraction of 65%-70%, right ventricular systolic function is normal, LV function is normal, no aortic stenosis, mild mitral regurgitation, [id number] tricuspid regurgitation, right ventricular systolic pressure 39. Interatrial septum is intact. No evidence of atrial septal defect by color flow and by bubble study. MRI of the brain showed subdural hematoma, predominantly located in the superior sulci, right posterior frontal, and parietal area. SOCIAL HISTORY: . Denies any history of alcohol abuse. Quit smoking eight years ago. ALLERGIES: ALLERGY TO ERYTHROMYCIN, SHELLFISH, AND AMBIEN. CURRENT MEDICATIONS: When the patient came in was taking Combivent, atorvastatin, aspirin at bedtime , Cozaar, Lunesta, Coumadin 5 mg Wednesday and 3 mg daily, amlodipine 5 mg daily. PAST SURGICAL HISTORY: Significant for appendectomy, cholecystectomy in the past and angioplasty seven or eight years ago. REVIEW OF SYSTEMS: As per HPI. PHYSICAL EXAMINATION: As follows: VITAL SIGNS: Temperature afebrile, heart rate 70, blood pressure 102/57. HEENT: PERRLA. Extraocular muscles are intact. NECK: Supple. No carotid bruit. No thyromegaly. CHEST: Clear to auscultation. HEART: S1 and S2, regular. ABDOMEN: Soft. EXTREMITIES: Clubbing and cyanosis negative. LABORATORY DATA: Blood workup as follows: WBC 7.8, hemoglobin 11.6, hematocrit 35.1, platelet count 215. Chemistry shows sodium 135, potassium 4.3, carbon dioxide 25, anion gap of 11, BUN 9, creatinine 0.6. TSH 10.0. IMPRESSION: An 81-year-old female with a past medical history significant for paroxysmal atrial fibrillation, on Coumadin at home, subtherapeutic INR, history of coronary artery disease status post percutaneous transluminal coronary angioplasty 7 or 8 years ago, being followed by Dr. Griselda Perez at [facility], admitted with slurring of speech, transient ischemic attack-type symptoms. MRI shows small subdural hematoma. Echo repeat shows preserved LV function. No aortic stenosis, mild MR, mild TR. RECOMMENDATIONS: Continue rehab. Coumadin on hold because of a recent history of a subdural hematoma. The patient is currently in normal sinus. On admission, TSH was found to be elevated, so Synthroid was increased from 125 to . Continue on hold Coumadin, probably two to three months or longer as per neurology's recommendation. The patient is in sinus now. Continue antihypertensive medication. Continue Losartan. Continue Imdur as started. Increase levothyroxine to 150 mg daily. Continue isosorbide at night. We will follow with you. Continue rehab. Thank you Dr. Lucia for providing me the opportunity in taking care of Magda Le. Lillian Schilling MD
[2017-04-22] MEDS: Pantoprazole 40 mg EC Tab PO SCH (06:15)
[2017-04-22] MEDS: Levothyroxine 150 MCG TAB PO SCH (06:15)
--- NOTE | 2017-04-22 19:16 | PN ---
DATE: 04/22/2017 TYPE OF DICTATION: Progress note. CONSULTING PHYSICIAN: Lillian Schilling MD. REASON FOR CONSULTATION AND FOLLOWUP: Continuity of care in the transitional care unit, admitted with TIA type of symptoms. SUBJECTIVE: The patient denies any chest pain. Denies any shortness of breath. Denies any palpitation. PHYSICAL EXAMINATION GENERAL: Lying flat on the bed. Not in apparent distress. VITAL SIGNS: Temperature afebrile, heart rate 80, blood pressure 130/80. HEENT: PERRLA. Extraocular muscles intact. NECK: Supple. No carotid bruit. No thyromegaly. CHEST: Clear to auscultation. HEART: S1 and S2 regular. ABDOMEN: Soft. EXTREMITIES: Clubbing and cyanosis negative. LABORATORY DATA: Blood workup pending. ASSESSMENT AND PLAN: The patient is an 81-year-old female with a past medical history of coronary artery disease status post stent, being followed by Dr. Griselda Perez's group. According to her, a stress test was done by Dr. Griselda Perez 3 months ago and that found to be negative. The patient admitted with a transient ischemic attack yesterday and last night also the patient had rapid response but a CAT scan was negative. The patient was on home Coumadin, but it is subtherapeutic level here. The patient was found to be with elevated TSH and Synthroid was increased. RECOMMENDATIONS: Continue losartan, continue Coumadin. The patient had echocardiography done that showed preserved left ventricular function, no aortic stenosis, mild mitral regurgitation and mild tricuspid regurgitation. MRI shows a small subdural hematoma. Coumadin is on hold because of subdural hematoma. Continue atorvastatin. Continue low-dose beta-maulik as tolerated. Continue losartan. Continue amlodipine. Continue levothyroxine increased to 150 mcg. We will repeat the lab in the morning. We will follow with you. Thank you Dr. Lucia for providing me the opportunity in taking care of Mimi Man. Lillian Schilling MD
[2017-04-22] MEDS: ESZOPICLONE 3 MG PO SCH (21:10)
--- NOTE | 2017-04-22 21:14 | CON ---
SUBJECTIVE: The patient is an 81-year-old, seen and examined sitting in chair, seems to be comfortable. She states she feel tired after a prolonged physical therapy. According to nursing staff, she had a brief period of slurring speech, but she immediately improved. PHYSICAL EXAMINATION VITAL SIGNS: She is afebrile, pulse is 55, respirations are 18, and blood pressure is 107/56. LUNGS: Bilateral fair airflow. No rhonchi or crackles. HEART: S1 and S2 audible. No murmur. ABDOMEN: Soft and nontender. No rebound. No guarding. NEUROLOGIC: The patient is awake, alert, and communicative. Moves all extremities. LABORATORY DATA: Blood sugar is 148. ASSESSMENT AND PLAN: 1. Status post fall and subdural hematoma. 2. Transient ischemic attack with slurring speech, no focal deficit seen. 3. Chronic atrial fibrillation seems to be under control. 4. Hypertension. 5. Hyperlipidemia. 6. History of head and neck tumor. 7. Coronary artery disease, status post angioplasty. PLAN: At this point, the patient's Plavix and aspirin is on hold because of her recent hemorrhage. She has been started on Keppra prophylactically because of subdural hemorrhage. Awaiting neuro input. The patient is complaining that her Tang catheter is bothering her, we will try to remove the catheter and if in case the patient goes in distention that will be reinserted and we will reevaluate this patient. Beka Lucia MD
--- NOTE | 2017-04-22 21:53 | CON ---
DATE: 04/22/2017 CHIEF COMPLAINT: Transient slurred speech. HISTORY OF PRESENT ILLNESS: This is an 81-year-old woman with past medical history of atrial fibrillation on Coumadin, hypertension, and dyslipidemia who recently came into the [facility] on 04/17/2017 for an episode of left arm stiffness/weakness and dysarthria that was recurrent. The patient had a fall 2 weeks prior and may have hit her head. This happened in the middle of the night, but the patient's daughter found the patient on the floor of the house. The patient came to the hospital for further evaluation but could not recall any episodes. During her medical work up, she had an MRI of the brain, which showed a small subdural hematoma of the right temporal and right posterior frontoparietal region. There was small amounts of subarachnoid hemorrhage predominantly located within the superior sulci and the right posterior frontoparietal region. She is currently on TCU for rehabilitation. There have been transient drops in her systolic and diastolic blood pressure and it was noticed it does correlate with her slurred speech. Currently, she is doing well. No further slurred speech episodes. Blood pressures stabilized. Her INR is 1.25. She is on Keppra for seizure prophylaxis 500 mg p.o. b.i.d. 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 ALLERGIES: ALLERGIC TO ERYTHROMYCIN, SHELLFISH, AND ZOLPIDEM. MEDICATIONS: Reviewed by nurse practitioner, see med reconciliation sheet. SOCIAL HISTORY: She lives with her daughter. Denies any illicit drug use, smoking or EtOH abuse. She was a heavy smoker in the past. REVIEW OF SYSTEMS: A 14-point review of system is negative except as in the HPI. PHYSICAL EXAMINATION GENERAL: The patient seen up in bed. In no acute distress. VITAL SIGNS: Temperature 98.6, pulse rate of 71, blood pressure 149/71, and respiratory rate 17. HEENT: Atraumatic and normocephalic. PERRLA. Extraocular muscles intact. NECK: Supple. No JVD. No adenopathy noted. HEART: S1 and S2. Normal rate and rhythm. No murmur, rubs, or gallops. ABDOMEN: Soft, nontender, nondistended. Bowel sounds are present. EXTREMITIES: No clubbing. No cyanosis. Peripheral pulses 2+ bilaterally. NEUROLOGIC: The patient is alert and oriented to person, place, month and year. Speech is slow without any errors. Recall after 5 minutes 0 out of 3. Poor attention. Slow thought process. Cranial nerves and motor exam; slight increased tone throughout. Moves all extremities equally. Plantars are downgoing bilaterally. There is some mild right side slow finger tapping compared to the left as well which is likely related to her underlying small hematoma in the right temporal and right frontoparietal subarachnoid hemorrhage that recently occurred. LABORATORY DATA: Sodium 135, potassium 4.1, chloride 102, carbon dioxide 25, BUN of 9, creatinine of 0.6, random glucose 83. ASSESSMENT AND PLAN: This is an 81-year-old woman with history of paroxysmal atrial fibrillation who is on Coumadin in the past, hypertension, coronary artery disease status post angioplasty, hypertension, hyperlipidemia, and hypothyroidism. She came in to the hospital after a brief episode of slurred speech according to her daughter that she had a week ago and does not remember the episode, found to have a small subdural hematoma in the right temporal and right posterior frontoparietal region. An echocardiogram shows ejection fraction of 65-70% with a borderline concentric left ventricular hypertrophy and mild aortic regurgitation. The patient was transferred to TCU. She had a transient episode of slurred speech again but it was noted that she had low systolic and diastolic blood pressures and the blood pressures were dropped. Her second transient slurred speech was secondary to cerebral hyperperfusion to the brain from blood pressure differences and superimposed mild concussion from prior head injury that resulted in right subdural in the temporal and frontoparietal region. PLAN: 1. At this time, recommended to continue with Keppra 500 mg p.o. b.i.d. for seizure prophylaxis. 2. Avoid antiplatelet or Coumadin for at least 3 weeks from the onset of the bleed. 3. Continue with physical and occupational therapy for underlying deconditioning seen and some mild leg side weakness. 4. Keep her systolic blood pressures above 120. Keep her blood pressure 120-130 mmHg and avoid sudden drops in blood pressure. 5. Monitor electrolytes concurrently. 6. Continue the current present medical management. Thank you for this consultation. Jamarcus Parnell MD [facility] # [id number]
[2017-04-23] MEDS: Pantoprazole 40 mg EC Tab PO SCH (05:58)
[2017-04-23] MEDS: Levothyroxine 150 MCG TAB PO SCH (05:59)
[2017-04-23 06:13] LABS: HEMATOCRIT 32.4 % (36.0-48.0); MEAN CELL VOLUME 87.6 fL (80.0-105.0); MEAN CORPUSCULAR HEMOGLOBIN 31.1 pg (25.0-35.0); MEAN CORPUSCULAR HGB CONC 35.5 g/dl (31.0-37.0); MEAN PLATELET VOLUME 9.9 fl (7.0-11.0); PLATELET COUNT 196 10^3/uL (120.0-450.0); RED CELL DISTRIBUTION WIDTH 14.2 % (11.5-14.5); WHITE BLOOD COUNT 14.2 10^3/ul (4.5-11.0)
[2017-04-23 06:19] LABS: ALKALINE PHOSPHATASE 119 U/L (38-133); ALT/SGPT 54 U/L (7-56); AST/SGOT 44 U/L (15-39); BILIRUBIN,TOTAL 0.8 mg/dL (0.2-1.3); BLOOD UREA NITROGEN 17 mg/dL (7-21); CALCIUM 8.9 mg/dL (8.4-10.5); CARBON DIOXIDE 26 mmol/L (21-33); CHLORIDE 96 mmol/L (95-110); GFR AFRICAN-AMERICAN > 60; GLUCOSE,RANDOM 91 mg/dL (70-110); MAGNESIUM 1.9 mg/dL (1.7-2.2); PHOSPHOROUS 3.3 mg/dL (2.5-4.5); POTASSIUM 4.4 mmol/L (3.6-5.0); SODIUM 132 mmol/L (132-148); TOTAL PROTEIN 7.1 g/dL (5.8-8.3)
[2017-04-23 06:23] LABS: ADD MANUAL DIFF? YES
[2017-04-23 06:58] LABS: BAND 1 % (0-2); NEUTROPHIL 57 % (50.0-70.0); PLATELET ESTIMATE NORMAL (NORMAL)
--- NOTE | 2017-04-23 13:57 | PN ---
DATE: 04/23/2017 CONSULTING PHYSICIAN: Danita Schilling MD REASON FOR CONSULTATION: Followup continued care in the transitional care unit, admitted with TIA type of symptoms. SUBJECTIVE: The patient denies any chest pain, shortness of breath. Denies any palpitation. Denies any slurring of speech. OBJECTIVE FINDINGS: GENERAL: Lying flat on the bed, not in apparent distress. Examinations as follows. VITAL SIGNS: Temperature afebrile, heart rate 79, blood pressure 133/56. HEENT: PERRLA, extraocular muscles intact. NECK: Supple. No carotid bruit. No thyromegaly. CHEST: Clear to auscultation. HEART: S1 and S2, regular. ABDOMEN: Soft. EXTREMITIES: Clubbing and cyanosis negative. LABORATORY DATA: Blood workup as follows; WBC as of today 14.8, hemoglobin 11.5, hematocrit of 32.4, and platelet count 196. Chemistry shows sodium of 130, potassium 4.4, chloride 96, carbon dioxide of 26, anion gap of 14, BUN of 17, and creatinine is 0.8. Total protein 7.1, albumin 3.5, and albumin/globulin ratio 1. IMPRESSION: An 81-year-old female with past medical history significant for coronary artery disease status post percutaneous transluminal coronary angioplasty x2 being followed by Dr. Griselda Perez's group. According to patient, had a stress test and echo 3 months ago, it was normal. Patient was admitted with transient ischemic attack type of symptom, multiple times. Patient had rapid response, repeat CAT scan did not show anything. Patient is on Coumadin for paroxysmal atrial fibrillation. Patient is in normal sinus. On admission, subtherapeutic INR. TSH elevated and Synthroid was increased. RECOMMENDATION: We will get PT INR today. Last INR was 1.25 on 04/20/2017. Patient had echocardiography done on 04/19/2017 that showed ejection fraction 65% to 70%, mildly dilated RV systolic pressure. RV function is normal. Mild aortic regurgitation. No valvular aortic stenosis. Ejection fraction was 65% to 70%, RV systolic pressure 39 mmHg. [id number] TR. Continue losartan, continue isosorbide, continue atorvastatin, continue metoprolol, continue amlodipine, continue levothyroxine. Patient had intracerebral bleeds, subdural hematoma, possibly spontaneous bleed, so Coumadin is on hold. Although patient is in normal sinus for now, we will discuss with for restarting Coumadin. Since the patient is normal sinus, we can wait because of the recent history of . Continue rehab. We will follow with you. Thank you Dr. Lucia for providing me the opportunity in taking care of Mimi Manning. Lillian Schilling MD
--- NOTE | 2017-04-23 15:53 | PN ---
SUBJECTIVE: The patient is 81 years old, seen and examined, sitting in chair, and seems to be comfortable. She states she has slight headache on the right side. No more episode of slurred speech and participating in therapy. PHYSICAL EXAMINATION: VITAL SIGNS: She is afebrile, pulse 80, respirations 20, and blood pressure 91/48. LUNGS: Bilateral fair airflow. No rhonchi or crackles. HEART: S1 and S2 audible. ABDOMEN: Soft and nontender. No rebound. No guarding. NEUROLOGIC: She is awake and alert, able to communicate. Moves all extremities. LABORATORY DATA: WBC is 14.2, hemoglobin 11.5, hematocrit 32.4, and platelet 196. Chemistries; sodium 132, potassium 4.4, chloride 96, CO2 of 26, BUN 17, and creatinine 0.8. Blood sugar . ASSESSMENT: 1. Status post fall. 2. Status post right subdural hematoma, seems to be resolving. 3. Multiple episode of transient ischemic attack. 4. Hypertension. 5. Coronary artery disease, status post angioplasty. 6. Hyperlipidemia. 7. Hypothyroidism. PLAN: Continue Keppra and Tylenol as needed. Anticoagulant on hold. We will reevaluate the patient. Beka Lucia MD
[2017-04-23] MEDS: ESZOPICLONE 3 MG PO SCH (21:03)
[2017-04-24] MEDS: Pantoprazole 40 mg EC Tab PO SCH (05:46)
[2017-04-24] MEDS: Levothyroxine 150 MCG TAB PO SCH (05:46)
--- NOTE | 2017-04-24 20:33 | PN ---
DATE: 04/24/2017 SUBJECTIVE: The patient is an 81 years old, seen and examined. She states she does not have headache anymore, has been participating in therapy. No nausea, vomiting, or diarrhea. PHYSICAL EXAMINATION: VITAL SIGNS: She is afebrile, pulse 87, respirations 16, blood pressure 128/98. LUNGS: Bilateral fair airflow. No rhonchi or crackles. HEART: S1 and S2 audible. ABDOMEN: Soft, nontender. No rebound. No guarding. NEUROLOGIC: The patient is awake and alert, communicative. ASSESSMENT: 1. Status post fall. 2. Status post subdural hematoma, right frontoparietal and temporal area. 3. Hypertension. 4. Coronary artery disease. 5. Chronic atrial fibrillation, currently in sinus rhythm. PLAN: Continue the patient on current medications, continue physical therapy, monitor her neurologically. She is off of all kinds of anticoagulation as per neuro recommendation, had recent hemorrhage. The patient understands along with daughter that there is a risk of CVA since she has a history of paroxysmal atrial fibrillation. They understand the risk and agree to stop anticoagulation. The patient will continue physical therapy. We will reevaluate the patient in a.m. Beka Lucia MD
[2017-04-24] MEDS: ESZOPICLONE 3 MG PO SCH (21:38)
[2017-04-25] MEDS: Levothyroxine 150 MCG TAB PO SCH (05:55)
[2017-04-25] MEDS: Pantoprazole 40 mg EC Tab PO SCH (05:55)
[2017-04-25] MEDS: ESZOPICLONE 3 MG PO SCH (21:15)
[2017-04-26] MEDS: Pantoprazole 40 mg EC Tab PO SCH (06:24)
[2017-04-26] MEDS: Levothyroxine 150 MCG TAB PO SCH (06:24)
--- NOTE | 2017-04-26 13:41 | PN ---
DATE: 04/26/2017 REASON FOR CONSULTATION: Followup continued care in the transitional care unit, admitted with TIA type of symptoms. SUBJECTIVE: The patient denies any chest pain. Going to bathroom. Denies any shortness of breath. Denies any palpitation. OBJECTIVE FINDINGS: GENERAL: Lying flat on the bed, on way to the bathroom, walking without any trouble. VITAL SIGNS: Temperature afebrile, heart rate, 76. blood pressure 112/57. HEENT: PERRLA, extraocular muscles intact. NECK: Supple. No carotid bruit. No thyromegaly. CHEST: Clear to auscultation. HEART: S1 and S2, regular. ABDOMEN: Soft. EXTREMITIES: Clubbing and cyanosis negative. LABORATORY DATA: Blood workup as follows; WBC 14.8, hemoglobin 11.5, hematocrit of 32.4, and platelet count 196. Chemistry shows sodium of 130, potassium 4.4, chloride 96, carbon dioxide of 26, anion gap of 14, BUN of 17, and creatinine is 0.8. Alkaline phosphatase is 119, total protein 7.1, albumin 3.5, and albumin/globulin ratio 1. IMPRESSION: An 81-year-old female with past medical history significant for coronary artery disease status post percutaneous transluminal coronary angioplasty x2, being followed by Dr. Griselda Perez's group. According to patient, had a stress test 3 months ago. Patient was admitted with transient ischemic attack type of symptom, multiple times. Patient had rapid response. CAT scan did not show any significant blocking. Patient is on Coumadin for paroxysmal atrial fibrillation. Patient is in normal sinus. On admission, the patient has subtherapeutic INR. TSH was elevated and Synthroid was increased. Since the patient has intracerebral bleed, so Coumadin is on hold. Most recent echo 04/19/2017 showed ejection fraction 65% to 70%, mildly dilated RV systolic pressure. RV function is normal. Mild aortic regurgitation. No valvular aortic stenosis, RV systolic pressure 39 mmHg. RECOMMENDATION: Continue to hold Coumadin. Continue the rehab. The patient is on Keppra for prevention of seizure disorder. Continue metoprolol. Continue atorvastatin. Continue amlodipine. Continue rehab. Synthroid increased to 150 mg daily. We will follow with you. As mentioned the patient was on Coumadin at home for paroxysmal atrial fibrillation. The patient has a intracerebral bleed, Coumadin is on hold. Thank you Dr. Lcuia for providing me the opportunity in taking care of Mimi Manning. We will repeat the blood work up in the morning. Lillian Schilling MD [facility]
--- NOTE | 2017-04-26 13:59 | PN ---
SUBJECTIVE: The patient is 81 years old, seen and examined, sitting in chair, comfortable, discussed with therapist and doing well in therapy, participating very good. No hypertension. No headache. No dizziness. No nausea. No vomiting. PHYSICAL EXAMINATION: VITAL SIGNS: She is afebrile, pulse 76, respirations 14, blood pressure 112/57. LUNGS: Bilateral fair airflow. No rhonchi or crackles. HEART: S1 and S2 audible. ABDOMEN: Soft, nontender. No rebound. No guarding. NEUROLOGIC: The patient is awake and alert, able to communicate. No focal deficit. LABORATORY DATA: There is no new lab available today. ASSESSMENT AND PLAN: 1. Status post fall. 2. Subdural hematoma. 3. History of transient ischemic attack in the past. 4. Hypertension. 5. Hyperlipidemia. 6. Paroxysmal atrial fibrillation. 7. Coronary artery disease, status post angioplasty. PLAN: We will continue the patient on current medication. She is off of anticoagulation. We will discuss with neurologist if we can start her on aspirin again and in the meantime we will continue on current medications. She had Klebsiella UTI and has been on antibiotics since . We will continue till April 29 and that is the time the patient is scheduled to be discharged Beka Lucia MD
[2017-04-26] MEDS: ESZOPICLONE 3 MG PO SCH (21:56)
[2017-04-27] MEDS: Levothyroxine 150 MCG TAB PO SCH (06:00)
[2017-04-27] MEDS: Pantoprazole 40 mg EC Tab PO SCH (06:01)
[2017-04-27 08:54] LABS: ADD MANUAL DIFF? NO
[2017-04-27 09:00] LABS: BASO # 0.03 K/mm3 (0.0-2.0); BASO % 0.4 % (0.0-3.0); EOS # 0.1 (0.0-0.7); EOS % 1.3 % (1.5-5.0); GRAN % 58.8 % (50.0-68.0); HEMATOCRIT 34.1 % (36.0-48.0); LYMPH # 1.5 (1.2-3.4); LYMPH % 19.8 % (22.0-35.0); MEAN CELL VOLUME 88.8 fL (80.0-105.0); MEAN CORPUSCULAR HEMOGLOBIN 29.4 pg (25.0-35.0); MEAN CORPUSCULAR HGB CONC 33.1 g/dl (31.0-37.0); MONO # 1.5 (0.1-0.6); MONO % 19.7 % (1.0-6.0); PLATELET COUNT 225 10^3/uL (120.0-450.0); RED CELL DISTRIBUTION WIDTH 14.2 % (11.5-14.5); WHITE BLOOD COUNT 7.5 10^3/ul (4.5-11.0)
[2017-04-27 09:16] LABS: ALKALINE PHOSPHATASE 150 U/L (38-133); ALT/SGPT 71 U/L (7-56); AST/SGOT 63 U/L (15-39); BILIRUBIN,TOTAL 0.5 mg/dL (0.2-1.3); BLOOD UREA NITROGEN 17 mg/dL (7-21); CALCIUM 9.4 mg/dL (8.4-10.5); CARBON DIOXIDE 28 mmol/L (21-33); CHLORIDE 98 mmol/L (95-110); GFR AFRICAN-AMERICAN > 60; GLUCOSE,RANDOM 91 mg/dL (70-110); MAGNESIUM 1.9 mg/dL (1.7-2.2); PHOSPHOROUS 3.9 mg/dL (2.5-4.5); POTASSIUM 3.9 mmol/L (3.6-5.0); SODIUM 137 mmol/L (132-148); TOTAL PROTEIN 7.5 g/dL (5.8-8.3)
--- NOTE | 2017-04-27 13:28 | PN ---
DATE: REASON FOR FOLLOWUP: Continued care in the transitional care unit, admitted with TIA type of symptoms. SUBJECTIVE: The patient sitting in a chair. Denies any chest pain, shortness of breath, any palpitation. OBJECTIVE: GENERAL: Sitting in a chair comfortably, not in apparent distress. Examination as follows. VITAL SIGNS: Temperature afebrile, heart rate is 72, blood pressure 115/60. HEENT: PERRLA, extraocular muscles intact. NECK: Supple. No carotid bruit. No thyromegaly. CHEST: Clear to auscultation. HEART: S1 and S2 regular. ABDOMEN: Soft. EXTREMITIES: Clubbing and cyanosis negative. LABORATORY DATA: Blood workup as follows: WBC is 7.5, hemoglobin 11.3, hematocrit 34.1, platelet count 225. Chemistry shows sodium 132, potassium 3.9, chloride 98, carbon dioxide 20, anion gap of 15, BUN 17, creatinine 0.7. Glucose 91, calcium 9.4, phosphorous 3.9, magnesium 1.9, total bilirubin 0.5, AST is 63, ALT is 71, alkaline phosphatase 150, total protein 7.5, albumin 3.7, albumin-globin ration 1. IMPRESSION: An 81-year-old female with past medical history of significant for coronary artery disease status post percutaneous transluminal angioplasty x2, being followed by Dr. Griselda Perez's group at [facility]. According to the patient, the patient has a periodic stress test and echo done last recently 3 months ago and told everything was okay. Admitted with ischemic-type of symptoms, transient ischemic attack multiple times. CAT scan was negative. The patient was on Coumadin for paroxysmal atrial fibrillation, but since admission the patient is in normal sinus, also the patient is on admission with a subtherapeutic INR, but also the patient has intracerebral bleed, so Coumadin is on hold. Most recent echo, 04/19/2017, shows ejection fraction 65% to 70%, mildly dilated RV, RV systolic function is normal. pressure is 79. No valvular aortic stenosis. RECOMMENDATION: Continue to hold Coumadin. Continue rehab. The patient is on Keppra for seizure disorder for prevention. Continue metoprolol. Continue atorvastatin. Continue amlodipine. Continue rehab. Synthroid increased to 150. Followup TSH in 2 to 3 weeks to monitor the dose of Synthroid. As mentioned earlier, the patient was on Coumadin, but since admission the patient is in normal sinus and INR was subtherapeutic, though the patient intracerebral bleed, so Coumadin is an hold. Further continuation of Coumadin. Recommendation of the neurology followup in possible 3 months, after 3 month can be restarted if the patient goes back in atrial fibrillation. Upon discharge, the patient is going to be followed up with Dr. Griselda Perez's group. Explained to the patient that the patient needs to be followed up with Dr. Perez. Thank you Dr. Lucia for providing me the opportunity in taking care of the patient, Magda Le. Lillian Schilling MD
--- NOTE | 2017-04-27 16:45 | PN ---
SUBJECTIVE: The patient is an [id number] seen and examined, sitting in chair, seems to be comfortable, participating in therapy . PHYSICAL EXAMINATION VITAL SIGNS: She is afebrile. Pulse is 98, respirations 18, and blood pressure is 126/58. LUNGS: Bilateral fair airflow. No rhonchi or crackles. HEART: S1 and S2 audible. ABDOMEN: Soft and nontender. No rebound. No guarding. NEUROLOGIC: She is awake and alert. Able to communicate. Moves all extremity. LABORATORY DATA: WBC is 7.5, hemoglobin is 11.3, hematocrit is 34, and platelet count is 225. Chemistries: Sodium of 137, potassium of 3.9, chloride of 98, CO2 of 28, BUN of 17, creatinine of 0.7, and blood sugar of 91. AST 63, ALT 71, alkaline phosphatase is 150. ASSESSMENT AND PLAN: 1. Status post fall, status post subdural hematoma. 2. Chronic Atrial fibrillation. 3. Hypertension. 4. Hyperlipidemia. 5. Coronary artery disease, status angioplasty. PLAN: Currently, the patient is on Cozaar and she is on isosorbide, Keppra, Lipitor, metoprolol and amlodipine. She is on Protonix and levothyroxine. She is currently off aspirin and ____ Coumadin. Probably, we will need followup MRI to see after the complete evaluation she has to be started on anticoagulant again. Beka Lucia MD
[2017-04-27] MEDS: ESZOPICLONE 3 MG PO SCH (22:07)
[2017-04-28] MEDS: Levothyroxine 150 MCG TAB PO SCH (06:02)
[2017-04-28] MEDS: Pantoprazole 40 mg EC Tab PO SCH (06:02)
[2017-04-28 10:07] VITALS: BP 108/57
[2017-04-28 10:44] VITALS: PULSE 69; RESP 18; TEMP 98.1; O2SAT 100
--- NOTE | 2017-04-28 13:32 | PN ---
DATE: 04/28/2017 CONSULTING PHYSICIAN: Danita Schilling MD REASON FOR CONSULTATION: Follow up continued care in the transitional care unit, admitted with TIA type of symptoms. SUBJECTIVE: The patient is sitting in a chair, having the breakfast. Denies any chest pain, shortness of breath, any palpitation, denies any slurring of speech. OBJECTIVE: GENERAL: Not in apparent distress, having the breakfast, setting in the bed comfortably. VITAL SIGNS: Temperature afebrile, heart rate 81 and blood pressure 123/62. HEENT: PERRLA, extraocular muscles intact. NECK: Supple. No carotid bruit. No thyromegaly. CHEST: Clear to auscultation. HEART: S1 and S2 regular. ABDOMEN: Soft. EXTREMITIES: Clubbing and cyanosis negative. LABORATORY DATA: Blood workup as of yesterday; WBC is 7.5, hemoglobin 11.3, hematocrit 34.1, platelet count 225. Chemistry show sodium 132, potassium 3.9, chloride 90, carbon dioxide 20, anion gap of 15, BUN 17, creatinine 0.7. TSH 0.3 and 0.02. Total protein 7.5, albumin 3.7, and albumin/globulin ratio 1. IMPRESSION: An 81-year-old female with past medical history significant for coronary artery disease, status post percutaneous transluminal coronary angioplasty x2, being followed by Dr. Griselda Perez's group at [facility]. According to the patient has recent noninvasive workup 3 months ago, was negative. The patient admitted here with TIA type of symptoms. Repeat CAT scan was negative for recurrent event, though the patient admission had subtherapeutic INR, and the patient intracerebral bleed. Coumadin is on hold. History of paroxysmal atrial fibrillation, but in the admission, the patient has a normal sinus. Since admission Coumadin is on hold. RECOMMENDATION: Continue rehab. Consider restarting anticoagulation was clear from neurologist. Upon discharge, the patient will be followed up with Dr. Griselda Perez's group, explained the patient that the patient did not go on Coumadin can be restarted as an outpatient when cleared by neurologist though currently the patient is in normal sinus. Continue losartan. Continue isosorbide dinitrate. Continue atorvastatin. Continue low-dose of beta-maulik 12.5 b.i.d. Continue amlodipine. CVA status is stable. Thank you Dr. Lucia for providing me the opportunity in taking care of the patient, Mimi Man. We will follow with you. Lillian Schilling MD
--- NOTE | 2017-04-29 06:09 | DS ---
HISTORY OF PRESENT ILLNESS: The patient is an 81 years old white female with significant past medical history of hypertension, coronary artery disease status post angioplasty, paroxysmal AFib and hypothyroidism. The patient came to emergency room on 04/17/2017. She says she fell at home couple of weeks ago, but did not loose consciousness, cannot recall if she hit her head. She did not have dizziness, nausea or vomiting, so she did not seek any medical attention; however, two days prior to coming to the hospital, daughter noticed that she was slurring her speech and she had some numbness of her left upper extremity, but it resolved on its own. On 04/17/2017, she had same episode with slurring speech and left upper and lower extremity numbness, so daughter got alarmed and called the ambulance and she was brought to emergency room. The patient had workup done. CT scan was negative. Carotid Doppler was unremarkable. However, she had MRI done that shows subdural hematoma in the right temporal and posterior frontoparietal region with small amount of subarachnoid hemorrhage. The patient was on Coumadin and aspirin that was held and the patient was closely observed. She was prophylactically started on Keppra. She did well. She was deconditioned and transferred to TCU on 04/20/2017 where she received physical therapy, did well. PHYSICAL EXAMINATION: GENERAL: Today, she is awake, alert, oriented and communicative. VITAL SIGNS: She is afebrile, pulse 69, respirations 18 and blood pressure 108/57. LUNGS: Bilateral fair airflow. No rhonchi or crackle. HEART: S1 and S2 audible. ABDOMEN: Soft and nontender. No rebound. No guarding. NEUROLOGIC: She is awake and alert. Able to communicate. EXTREMITIES: Moves all extremities. ASSESSMENT: 1. Status post fall. 2. Right subdural, temporal and posterior frontoparietal subdural hemorrhage. 3. Paroxysmal atrial fibrillation. 4. Hypertension. 5. Hyperlipidemia. 6. Hypothyroidism. PLAN: The patient is being discharged home today. She is going to resume all her medication except Coumadin and aspirin and the new medication started was Keppra 500 mg twice a day. She will resume other medications including amlodipine, Protonix, metoprolol, losartan, levothyroxine, isosorbide, Lunesta and atorvastatin. She will follow with Dr. Jamarcus Parnell next week and he will repeat the MRI of the brain and her anticoagulant is on hold until complete resolution of hemorrhage. The patient's daughter and herself understand the risk that since she has paroxysmal AFib, there is a chance of getting stroke they understand that and they agree with the plan. So, she is being discharged home with her daughter. Beka Lucia MD
== END 2017-04-28 14:08 | disposition home or self-care (01) | DRG 84 ==
LOC: TRCU 18:39
PROVIDERS: ADMIT Internal Medicine; ATTEND Internal Medicine
PROC: F07Z9FZ Gait Training/Functional Ambulation Treatment using Assistive, Adaptive, Supportive or Protective Equipment (ICD-10-PCS; principal; 2017-04-21)
PROC: F07M6ZZ Therapeutic Exercise Treatment of Musculoskeletal System - Whole Body (ICD-10-PCS; 2017-04-21)
PROC: F08Z0ZZ Bathing/Showering Techniques Treatment (ICD-10-PCS; 2017-04-22)
PROC: F08Z1ZZ Dressing Techniques Treatment (ICD-10-PCS; 2017-04-22)
PROC: F08Z2ZZ Grooming/Personal Hygiene Treatment (ICD-10-PCS; 2017-04-22)
DX: S06.5X9A Traumatic subdural hemorrhage with loss of consciousness of unspecified duration, initial encounter (principal); S06.6X9A Traumatic subarachnoid hemorrhage with loss of consciousness of unspecified duration, initial encounter; I48.0 Paroxysmal atrial fibrillation; I35.1 Nonrheumatic aortic (valve) insufficiency; I08.1 Rheumatic disorders of both mitral and tricuspid valves; I10 Essential (primary) hypertension; E78.5 Hyperlipidemia, unspecified; E03.9 Hypothyroidism, unspecified; I48.2 Chronic atrial fibrillation; I25.10 Atherosclerotic heart disease of native coronary artery without angina pectoris; Z95.5 Presence of coronary angioplasty implant and graft; Z92.3 Personal history of irradiation; Z92.21 Personal history of antineoplastic chemotherapy; Z91.81 History of falling; Z87.891 Personal history of nicotine dependence; Z86.73 Personal history of transient ischemic attack (TIA), and cerebral infarction without residual deficits; Z79.899 Other long term (current) drug therapy; Z79.82 Long term (current) use of aspirin; Z79.01 Long term (current) use of anticoagulants; H91.90 Unspecified hearing loss, unspecified ear; R53.81 Other malaise; R26.2 Difficulty in walking, not elsewhere classified; Z90.49 Acquired absence of other specified parts of digestive tract; Z88.1 Allergy status to other antibiotic agents; Z91.013 Allergy to seafood; Z88.8 Allergy status to other drugs, medicaments and biological substances

== ENCOUNTER 2017-09-20 08:29 | Emergency (ER) | payer MEDICARE ==
[2017-09-20 08:45] VITALS: TEMP 98.4; O2SAT 97; BMI 20.6
--- NOTE | 2017-09-20 09:17 | ED PDOC ---
Arrival/HPI - General Chief Complaint: Finger,Hand,&Wrist Time Seen by Provider: 09/20/17 08:40 Historian: Patient, Family (daughter) - History of Present Illness Narrative History of Present Illness (Text): 09/20/17 09:17 An 82 year old female, whose past medical history includes CAD (on Coumadin), paroxysmal atrial fibrillation and TIA (5 months ago, no residual deficits), presents to the emergency department complaining of left thumb and left index finger pain/weakness since yesterday ~ 4pm. Reports similar pain the past but not the weakness; pt states left fingers felt stiff as well; Patient also notes some left sided facial pain/burning/headache and dizziness (lightheadedness/ disequilibrium) that developed this morning upon awakening. Denies any recent falls/trauma; pt denied fever/chills/sweats, no cp/sob/palpitations, no abd pain , no n/v, no numbness/tingling, no urinary/bowel changes, no incontinence, no sick contact, no travel; pt denied rashes pt is here for further eval pt's without other complaints. PMD: Dr. Fredy Beckford Neuro: Dr. Parnell 09/20/17 11:30 pt lives at home alone pt is right hand dominate Time/Duration: 24 hours Symptom Onset: Sudden Symptom Course: Unchanged Quality: Aching Severity Level: 9, Severe Activities at Onset: Rest Context: Home Past Medical History - Provider Review Nursing Documentation Reviewed: Yes - Travel History Have you recently traveled outside [place] w/in the past 3 mons?: No - Past History Past History: No Previous - Infectious Disease Hx of Infectious Diseases: None - Tetanus Immunization Tetanus Immunization: Unknown - Reproductive Menopause: Yes - Cardiac Hx Cardiac Disorders: Yes - Pulmonary Hx Respiratory Disorders: Yes (SMOKED CIGARETTES. QUIT USED TO SMOKE 7CIG/D) Hx Pneumonia: Yes - Neurological Hx Neurological Disorder: Yes HX Cerebrovascular Accident: Yes - HEENT Hx HEENT Disorder: Yes Hx Deafness: Yes (ROSEBUD) Hx Macular Degeneration: Yes - Renal Hx Renal Disorder: No - Endocrine/Metabolic Hx Hypothyroidism: Yes - Hematological/Oncological Hx Blood Disorders: Yes Hx Cancer: Yes (bladder,SQUAMOUS CELL CA L NECK AREA) - Integumentary Hx Dermatological Disorder: No Hx Squamous Cell Carcinoma: Yes (NECK) - Musculoskeletal/Rheumatological Hx Falls: Yes (frequent recent) - Gastrointestinal Hx Gastrointestinal Disorders: Yes Hx Gall Bladder Disease: Yes (CHOLECYSTECTOMY) Other/Comment: CONSTIPATION - Genitourinary/Gynecological Hx Genitourinary Disorders: (hx bladder ca) Hx Reproductive Disorders: Yes (hyst) - Psychiatric Hx Psychophysiologic Disorder: Yes (SMOKED CIGARETTES H/O) Hx Emotional Abuse: No Hx Physical Abuse: No Hx Substance Use: No - Surgical History Hx Cardiac Catheterization: Yes (stentX2) Hx Cholecystectomy: Yes Hx Hysterectomy: Yes - Anesthesia Hx Anesthesia: Yes Hx Anesthesia Reactions: No Hx Malignant Hyperthermia: No - Suicidal Assessment Feels Threatened In Home Enviroment: No Family/Social History - Physician Review Nursing Documentation Reviewed: Yes Family/Social History: No Known Family HX Smoking Status: Former Smoker Hx Alcohol Use: Yes (OCCASIONALLY H/O) Hx Substance Use: No Hx Substance Use Treatment: No Allergies/Home Meds Allergies/Adverse Reactions: Allergies erythromycin base Allergy (Verified 09/20/17 08:47) VOMITING shellfish derived Allergy (Verified 09/20/17 08:47) VOMITING zolpidem tartrate [From Ambien] Allergy (Verified 09/20/17 08:47) RASH Home Medications: Home Meds Medication Instructions Recorded Confirmed Isosorbide Mononitrate [Imdur] 30 mg PO DAILY 03/16/12 09/20/17 Atorvastatin [Lipitor] 20 mg PO DAILY 03/30/15 09/20/17 Losartan [Cozaar] 50 mg PO DAILY 03/30/15 09/20/17 Vit A/Vit C/Vit E/Zinc/Copper 1 tab PO DAILY 03/30/15 09/20/17 [Preservision] Warfarin [Coumadin] 3 mg PO DAILY 03/30/15 09/20/17 Albuterol/Ipratropium [Combivent 1 spr IH TID 12/07/15 09/20/17 Respimat] Aspirin [Leake Aspirin] 81 mg PO DAILY 12/07/15 09/20/17 Bifidobacterium Infantis [Align] 4 mg PO HS 12/07/15 09/20/17 Calcium Carbonate [Caltrate 600] 600 mg PO DAILY 12/07/15 09/20/17 Eszopiclone [Lunesta] 3 mg PO HS 12/07/15 09/20/17 Nitroglycerin 0.4 mg SL PRN PRN 12/07/15 09/20/17 amLODIPine [Norvasc] 2.5 mg PO DAILY 04/17/17 09/20/17 Metoprolol Tartrate [Lopressor] 25 mg PO DAILY 09/20/17 09/20/17 levETIRAcetam [Keppra] 250 mg PO BID 09/20/17 09/20/17 Review of Systems - Physician Review All systems were reviewed & negative as marked: Yes - Review of Systems Constitutional: Normal Eyes: Normal ENT: Normal Respiratory: Normal Cardiovascular: absent: Chest Pain Gastrointestinal: Normal Genitourinary Female: Normal Musculoskeletal: Other (left thumb and left index finger pain/weakness) Skin: Normal Neurological: Headache (left sided facial pain), Dizziness, Disequilibrium Endocrine: Normal Hemo/Lymphatic: Normal Psychiatric: Normal Physical Exam Vital Signs Reviewed: Yes Vital Signs Temp Pulse Resp BP Pulse Ox 09/20/17 10:45 77 18 134/96 H 97 09/20/17 08:42 98.4 F 65 16 139/54 L 97 Temperature: Afebrile Blood Pressure: Normal Pulse: Regular Respiratory Rate: Normal Appearance: Positive for: Well-Appearing, Non-Toxic, Other (uncomfortable, NAD, alert/awake, GCS = 15, oriented x 3; cooperative) Pain Distress: None Mental Status: Positive for: Alert and Oriented X 3 - Systems Exam Head: Present: Atraumatic, Normocephalic Pupils: Present: PERRL, Other (no nystagmus, no photophobia, sclera anicteric, visual field intact b/l) Extroacular Muscles: Present: EOMI Conjunctiva: Present: Normal, Other (subconjunctival hemorrhage) Ears: Present: Normal Mouth: Present: Other (mild dry oral mucosa, intact dentitions, no drooling/ stridor, uvula/tongue are midline, no dysphonia) Pharnyx: Present: Normal Nose (External): Present: Atraumatic Neck: Present: Normal Range of Motion, Trachea Midline, Other (intact ROM, no step off). No: MIDLINE TENDERNESS Respiratory/Chest: Present: Clear to Auscultation, Good Air Exchange. No: Respiratory Distress, Accessory Muscle Use Cardiovascular: Present: Regular Rate and Rhythm, Normal S1, S2. No: Murmurs Abdomen: Present: Normal Bowel Sounds. No: Tenderness, Distention, Peritoneal Signs Back: Present: Normal Inspection Upper Extremity: Present: Normal Inspection, Normal ROM, NORMAL PULSES, Neurovascularly Intact, Other (+ base of indext finger/dorsum aspect of left hand, and left thumb region noted a patch of slight skin erythema; + decr ROM to left hand; strength 5-/5 to left hand, neurovasc intact b/l). No: Cyanosis, Edema Lower Extremity: Present: Normal Inspection, NORMAL PULSES, Normal ROM, Neurovascularly Intact, Capillary Refill < 2 s. No: Edema Neurological: Present: GCS=15, CN II-XII Intact, Speech Normal, Other (no facial asymmetries) Skin: Present: Warm, Dry, Normal Color. No: Rashes Psychiatric: Present: Alert, Oriented x 3, Normal Insight, Normal Concentration Medical Decision Making ED Course and Treatment: 09/20/17 09:15 Impression: An 82 year old female with left thumb and left index finger pain/weakness and dizziness. I have considered all the differential diagnosis regarding patient's chief medical complaint/clinical findings, including but are not limited to: r/o TIA, unlikely CVA, neuropathy, unlikely infection A/P: left thumb and left index finger pain/weakness; dizziness -- EKG -- chest xray -- CT head -- Urinalysis -- labs 09/20/17 11:[address] Parnell, pt's neurologist, made aware of pt's medical complaints/ED dx/txt, suggests pt can either be discharged with outpt f/u or ok with admit/ observation 09/20/17 13:05 12:15pm - i spoke to Dr Lucia, [employer] pcp for patient, made aware of pt's medical complaints/ED dx/txt, agrees with admission/observation pt/family are made aware of pt's medical results agrees with admission pt is feeling slightly improved pt states pain is improved as well as decr/no lightheadedness Re-evaluation Time: 11:21 Reassessment Condition: Improved - Lab Interpretations Lab Results: 09/20/17 09:10 09/20/17 09:10 Lab Results 09/20/17 09:10: Urine Opiates Screen Negative, Urine Methadone Screen Negative, Ur Barbiturates Screen Negative, Ur Phencyclidine Scrn Negative, Ur Amphetamines Screen Negative, U Benzodiazepines Scrn Negative, U Oth Cocaine Metabols Negative, U Cannabinoids Screen Negative 09/20/17 09:10: Sodium 138, Potassium 3.9, Chloride 101, Carbon Dioxide 29, Anion Gap 12, BUN 13, Creatinine 0.9, Est GFR ( Amer) > 60, Est GFR (Non- Af Amer) 60, Random Glucose 75, Calcium 9.7, Phosphorus 3.0, Magnesium 1.8, Total Bilirubin 0.8, AST 37 H, ALT 32, Alkaline Phosphatase 74, Lactate Dehydrogenase 582, Total Creatine Kinase 135, Troponin I < 0.01, Total Protein 8.0, Albumin 4.2, Globulin 3.8, Albumin/Globulin Ratio 1.1 09/20/17 09:10: Urine Color Yellow, Urine Appearance Clear, Urine pH 6.5, Ur Specific [place] 1.015, Urine Protein Negative, Urine Glucose (UA) Negative, Urine Ketones Negative, Urine Blood Trace-intact H, Urine Nitrate Negative, Urine Bilirubin Negative, Urine Urobilinogen 0.2, Ur Leukocyte Esterase Negative , Urine RBC 1 - 3, Urine WBC 0 - 2, Ur Epithelial Cells 0 - 2 09/20/17 09:10: PT 25.5 H, INR 2.28 H, APTT 44.6 H 09/20/17 09:10: WBC 9.3 D, RBC 4.49, Hgb 13.4, Hct 41.2, MCV 91.8, MCH 29.8, MCHC 32.5, RDW 15.3 H, Plt Count 115 L, MPV 11.4 H, Gran % 64.2, Lymph % (Auto) 12.6 L, [place] % (Auto) 22.5 H, Eos % (Auto) 0.5 L, Baso % (Auto) 0.2, Gran # 5.96 , Lymph # 1.2, [place] # 2.1 H, Eos # 0.1, Baso # 0.02, Neutrophils % (Manual) 69, Band Neutrophils % 1, Lymphocytes % (Manual) 8 L, Atypical Lymphs % 2 H, Monocytes % (Manual) 20 H, Platelet Evaluation Normal, Large Platelets Present WNL I have reviewed the lab results: Yes (WNL) Interpretation: All labs normal - RAD Interpretation Radiology Orders: 09/20/17 08:59 HEAD W/O CONTRAST [CT] Stat 09/20/17 09:00 CHEST PORTABLE [RAD] Stat 09/20/17 09:14 HAND LEFT 3 VIEWS ROUTINE [RAD] Stat left hand: radioopaque structure to 4th digit (likely external/ring) no acute fx/dislocation noted Mild djd wrist chest xray: slight hyperinflation scoliotic spine no free air no ptx PROCEDURE: CT HEAD WITHOUT CONTRAST. HISTORY: lightheadedness, left hand weakness COMPARISON: 04/22/2017 TECHNIQUE: Axial computed tomography images were obtained through the head/brain without intravenous contrast. Radiation dose: Total exam DLP = 806.95 mGy-cm. This CT exam was performed using one or more of the following dose reduction techniques: Automated exposure control, adjustment of the mA and/or kV according to patient size, and/or use of iterative reconstruction technique. FINDINGS: HEMORRHAGE: No intracranial hemorrhage. BRAIN: No mass effect or edema. Cortical atrophy, periventricular small vessel disease VENTRICLES: Unremarkable. No hydrocephalus. CALVARIUM: Unremarkable. PARANASAL SINUSES: Unremarkable as visualized. No significant inflammatory changes. MASTOID AIR CELLS: Unremarkable as visualized. No inflammatory changes. OTHER FINDINGS: None. IMPRESSION: No acute intracranial abnormalities. No significant findings to account for the clinical presentation. No significant interval change compared to the prior examination(s). 09/20/17 11:47 Left Hand Radiographs Creator : Christophe Silveira MD IMPRESSION: No significant or acute findings to account for/ related to the clinical presentation. Concordant results with the preliminary interpretation rendered by the emergency department physician\PA at the conclusion of the procedure. 09/20/17 11:47 chest xray Creator : Christophe Silveira MD IMPRESSION: No active disease. No significant interval change compared to the prior examination(s). Staff Nurse: ED Physician, Radiologist - EKG Interpretation EKG Interpretation (Text): 09/20/17 13:09 NSR at 60 bpm, normal axis, no ectopy, biphasic T noted to lead III, no st changes, BORDERLINE EKG; unchanged compare with old ekg 03/2017 Interpreted by ED Physician: Yes Type: 12 lead EKG NIHSS Stroke Scale 3 - Date/Time Evaluation Performed Date Performed: 09/20/17 Time Performed: 10:30 When Was NIHSS Performed: Baseline - How Severe is the Stroke Level of Consciousness: 0=Alert LOC to Questions: 0=Both comments correct LOC to commands: 0=Obeys both correctly Best Gaze: 0=Normal Visual: 0=No visual loss Facial: 0=Normal Motor Arm - Left: 0=No drift Motor Arm - Right: 0=No drift Motor Leg - Left: 0=No drift Motor Leg - Right: 0=No drift Limb Ataxia: 0=Absent Sensory: 0=Normal Best Language: 0=No aphasia Dysarthia: 0=Normal articulation Extinction & Inattention (Neglect): 0=Normal, no object Score: 0 Severity Of Stroke: 0 = No Stroke - Scribe Statement The provider has reviewed the documentation as recorded by the Mary Mcneill Provider Scribe Attestation: All medical record entries made by the Torresibtaylor were at my direction and personally dictated by me. I have reviewed the chart and agree that the record accurately reflects my personal performance of the history, physical exam, medical decision making, and the department course for this patient. I have also personally directed, reviewed, and agree with the discharge instructions and disposition. Disposition/Present on Arrival - Present on Arrival Any Indicators Present on Arrival: No History of DVT/PE: No History of Uncontrolled Diabetes: No Urinary Catheter: Yes (inserted as inpt dng dark red) History of Decub. Ulcer: No History Surgical Site Infection Following: None - Disposition Have Diagnosis and Disposition been Completed?: Yes Diagnosis: TIA (transient ischemic attack), Left hand pain, Lightheadedness Disposition: HOSPITALIZED Disposition Time: 12:30 Patient Plan: Admission, Observation Patient Problems: Current Active Problems Problem Status Onset Left hand pain Acute Lightheadedness Acute TIA (transient ischemic attack) Acute Condition: STABLE
[2017-09-20 10:11] LABS: PH,URINE 6.5 (4.7-8.0); URINE BILIRUBIN NEGATIVE (NEGATIVE); URINE BLOOD TRACE-INTACT (NEGATIVE); URINE GLUCOSE (UA) NEGATIVE (NEGATIVE); URINE KETONE NEGATIVE (NEGATIVE); URINE LEUKOCYTE ESTERASE NEGATIVE Leu/uL (NEGATIVE); URINE PROTEIN NEGATIVE mg/dL (<30 mg/dL); URINE UROBILINOGEN 0.2 E.U./dL (<1 E.U./dL)
[2017-09-20 10:14] LABS: BLOOD UREA NITROGEN 13 mg/dL (7-21); CALCIUM 9.7 mg/dL (8.4-10.5); CARBON DIOXIDE 29 mmol/L (21-33); CHLORIDE 101 mmol/L (98-107); GFR AFRICAN-AMERICAN > 60; GLUCOSE,RANDOM 75 mg/dL (70-110); MAGNESIUM 1.8 mg/dL (1.7-2.2); POTASSIUM 3.9 mmol/L (3.6-5.0); SODIUM 138 mmol/L (132-148)
[2017-09-20 10:15] LABS: ALB/GLOB RATIO 1.1 (1.1-1.8); ALKALINE PHOSPHATASE 74 U/L (38-126); ALT/SGPT 32 U/L (7-56); AST/SGOT 37 U/L (14-36); BASO # 0.02 K/mm3 (0.0-2.0); BASO % 0.2 % (0.0-3.0); BILIRUBIN,TOTAL 0.8 mg/dL (0.2-1.3); EOS # 0.1 (0.0-0.7); EOS % 0.5 % (1.5-5.0); GRAN # 5.96 (1.4-6.5); GRAN % 64.2 % (50.0-68.0); HEMATOCRIT 41.2 % (36.0-48.0); LYMPH # 1.2 (1.2-3.4); LYMPH % 12.6 % (22.0-35.0); MEAN CELL VOLUME 91.8 fl (80.0-105.0); MEAN CORPUSCULAR HEMOGLOBIN 29.8 pg (25.0-35.0); MEAN CORPUSCULAR HGB CONC 32.5 g/dl (31.0-37.0); MEAN PLATELET VOLUME 11.4 fl (7.0-11.0); MONO # 2.1 (0.1-0.6); MONO % 22.5 % (1.0-6.0); PLATELET COUNT 115 10^3/uL (120.0-450.0); RED CELL DISTRIBUTION WIDTH 15.3 % (11.5-14.5); URINE APPEARANCE CLEAR (CLEAR); URINE COLOR YELLOW (YELLOW); WHITE BLOOD COUNT 9.3 10^3/ul (4.5-11.0)
[2017-09-20 10:25] LABS: TROPONIN I < 0.01 ng/mL
[2017-09-20 10:26] LABS: INR 2.28 (0.93-1.08); PARTIAL THROMBOPLASTIN TIME 44.6 Seconds (25.1-36.5)
[2017-09-20 10:27] LABS: URINE EPITHELIAL CELLS 0 - 2 /hpf (0-5); URINE WBC 0 - 2 /hpf (0-6)
--- NOTE | 2017-09-20 10:38 | CT ---
PROCEDURE: CT HEAD WITHOUT CONTRAST. HISTORY: lightheadedness, left hand weakness COMPARISON: 04/22/2017 TECHNIQUE: Axial computed tomography images were obtained through the head/brain without intravenous contrast. Radiation dose: Total exam DLP = 806.95 mGy-cm. This CT exam was performed using one or more of the following dose reduction techniques: Automated exposure control, adjustment of the mA and/or kV according to patient size, and/or use of iterative reconstruction technique. FINDINGS: HEMORRHAGE: No intracranial hemorrhage. BRAIN: No mass effect or edema. Cortical atrophy, periventricular small vessel disease VENTRICLES: Unremarkable. No hydrocephalus. CALVARIUM: Unremarkable. PARANASAL SINUSES: Unremarkable as visualized. No significant inflammatory changes. MASTOID AIR CELLS: Unremarkable as visualized. No inflammatory changes. OTHER FINDINGS: None. IMPRESSION: No acute intracranial abnormalities. No significant findings to account for the clinical presentation. No significant interval change compared to the prior examination(s).
[2017-09-20 10:44] LABS: ATYPICAL LYMPHOCYTE 2 % (0.0-0.0); BAND 1 % (0-2); LARGE PLATELETS PRESENT; NEUTROPHIL 69 % (50.0-70.0); PLATELET ESTIMATE NORMAL (NORMAL)
[2017-09-20 11:32] VITALS: RESP 18
--- NOTE | 2017-09-20 11:45 | RAD ---
PROCEDURE: Left Hand Radiographs. HISTORY: left thumb/index finger swelling/pain, atrumatic COMPARISON: None. FINDINGS: BONES: No acute fractures. JOINTS: Mild osteoarthritic changes proximal and distal interphalangeal joint distribution. Carpal-first metacarpal osteoarthritic changes. SOFT TISSUES: No visulaized radiopaque/visualized foreign body. OTHER FINDINGS: None. IMPRESSION: No significant or acute findings to account for/ related to the clinical presentation. Concordant results with the preliminary interpretation rendered by the emergency department physician procedure.
--- NOTE | 2017-09-20 11:46 | RAD ---
HISTORY: Weakness. COMPARISON: 04/17/2017 FINDINGS: LUNGS: Chronic interstitial lung disease. PLEURA: No significant pleural effusion identified, no pneumothorax apparent. CARDIOVASCULAR: Normal. OSSEOUS STRUCTURES: No significant abnormalities. VISUALIZED UPPER ABDOMEN: Normal. OTHER FINDINGS: None. IMPRESSION: No active disease. No significant interval change compared to the prior examination(s).
[2017-09-20 13:59] VITALS: BP 130/69; PULSE 68
--- NOTE | 2017-09-20 23:37 | CON ---
DATE: HISTORY OF PRESENT ILLNESS: The patient is an 82-year-old, states she was having left hand pain and swelling since last night. She was unable to walk. She was unable to sleep, so that is why she is feeling very weak and tired and dizzy, lightheaded, so she expressed that feeling to her daughter, who brought her to Emergency Room for evaluation of her left hand pain. The patient states she feels very sleepy and lightheaded because of not sleeping well last night. PAST MEDICAL HISTORY: She has significant past medical history of; 1. Hypertension. 2. Paroxysmal AFib. 3. History of TIA in the past. 4. Coronary artery disease status post angioplasty. 5. Hyperlipidemia. 6. History of head and neck tumor status post radiation. 7. Hypothyroidism. ALLERGIES: SHE IS ALLERGIC TO ERYTHROMYCIN, SHELLFISH AND ZOLPIDEM. MEDICATIONS: At home, she is on Keppra 500 mg twice a day, amlodipine 5 mg daily, Coumadin 10 mg daily, atorvastatin 20 mg daily, Lunesta 3 mg at bedtime, metoprolol 25 daily, losartan 50 mg daily, isosorbide 30 mg daily, Keppra 250 twice a day, levothyroxine 150 mcg daily, aspirin 81 mg daily. REVIEW OF SYSTEMS: Significant for left hand thumb and base of index finger redness and swelling. PHYSICAL EXAMINATION GENERAL: She is awake and alert, able to communicate. VITAL SIGNS: She is afebrile, pulse 68, respirations 18, and blood pressure 136/89. LUNGS: Bilateral fair airflow. No rhonchi or crackle. HEART: S1, S2 audible. ABDOMEN: Soft and nontender. No rebound. No guarding. NEUROLOGIC: She is awake, alert, and oriented; able to communicate; left hand dorsum slight erythema. LABORATORY DATA: : WBC is 9.3, hemoglobin 13.4, hematocrit 41.2, and platelets 115. PT is 25.5, INR 2.28. Chemistry: Sodium 138, potassium 3.9, chloride 101, CO2 of 29, BUN 13, creatinine 0.9, and blood sugar of 60. LFTs are within normal limits. Urinalysis is unremarkable. Urine tox screen is negative. ASSESSMENT: 1. Left hand thumb and index finger base redness probably gout versus arthritis. 2. Dizziness and generalized weakness because of sleeplessness overnight. 3. History of transient ischemic attack in the past. 4. Coronary artery disease. 5. History of hypertension. 6. History of head and neck tumor. PLAN: I will give the patient colchicine 0.6 daily for a week, prednisone 20 mg daily for a week. She is advised to take Tylenol. She is advised to follow up with her PMD. If her condition worse, she can always come back. Beka Lucia MD
--- NOTE | 2017-09-21 17:32 | CARD ---
APPROVED REPORT EKG Measurement Heart [id number] <Conclusion> Normal sinus rhythm Normal ECG
== END 2017-09-20 14:16 | disposition home or self-care (01) ==
LOC: ED 08:29 → UNDOADMOB 12:12 → ERH 12:12
DX: G45.9 Transient cerebral ischemic attack, unspecified (principal); M79.642 Pain in left hand; R42 Dizziness and giddiness; I10 Essential (primary) hypertension; I48.0 Paroxysmal atrial fibrillation; I25.10 Atherosclerotic heart disease of native coronary artery without angina pectoris; E78.5 Hyperlipidemia, unspecified; E03.9 Hypothyroidism, unspecified; Z79.01 Long term (current) use of anticoagulants; Z87.891 Personal history of nicotine dependence
CPT/HCPCS: 70450; 71010; 73130; 80053; 81001; 82550; 83615; 83735; 84100; 84484; 85025; 85610; 85730; 93005; 99284; G0480

== ENCOUNTER 2018-04-25 14:17 | Inpatient (IN) | payer MEDICARE ==
[2018-04-25] MEDS ORDERED: Metoprolol Succinate 25 mg XL Tab PO STA (15:21)
--- NOTE | 2018-04-25 15:57 | ED PDOC ---
Arrival/HPI - General Chief Complaint: Back Pain Time Seen by Provider: 04/25/18 14:50 Historian: Patient, Family (Daughter) - History of Present Illness Narrative History of Present Illness (Text): 04/25/18 15:51 An 82 year old female, whose past medical history includes cholecystectomy, stroke (03/2017), Bladder CA, PAD left leg, hysterectomy, macular degeneration, angioplasty (2 stents), proxysmal A-Fib, light leaky valve, is brought into the emergency department by daughter for a complaint of worsening back pain. As per the patient's daughter , the patient was seen in another institution for similar complaints. She was told that she had stage 4 metastatic lung cancer. A Thoracic Spine CT was done which showed a mass on the right upper lobe suspicious for neoplasm and no fractures. The patient requests medication to relieve her back pain. Dr. Cooley notes that the patient has not been eating or drinking well. The patient denies fevers, chills, headache, dizziness, sore throat, cough, chest pain, shortness of breath, dyspnea on exertion, abdominal pain, nausea, vomiting, diarrhea, neck pain, urinary/bowel changes or any other complaint. PMD: Dr. Beckford Offender Employment Specialist: Dr. Perez Time/Duration: 1 week Symptom Onset: Sudden Symptom Course: Unchanged Activities at Onset: Rest, Light Context: Home Past Medical History - Provider Review Nursing Documentation Reviewed: Yes - Past History Past History: No Previous - Infectious Disease Hx of Infectious Diseases: None - Tetanus Immunization Tetanus Immunization: Unknown - Cardiac Hx Cardiac Disorders: Yes - Pulmonary Hx Respiratory Disorders: Yes Hx Lung Cancer: Yes Hx Pneumonia: Yes - Neurological Hx Neurological Disorder: Yes HX Cerebrovascular Accident: Yes - HEENT Hx HEENT Disorder: Yes Hx Deafness: Yes (DOUGLAS) Hx Macular Degeneration: Yes - Renal Hx Renal Disorder: No - Endocrine/Metabolic Hx Hypothyroidism: Yes - Hematological/Oncological Hx Blood Disorders: Yes Hx Cancer: Yes (bladder,SQUAMOUS CELL CA L NECK AREA) - Integumentary Hx Dermatological Disorder: Yes Hx Squamous Cell Carcinoma: Yes (NECK) - Musculoskeletal/Rheumatological Hx Musculoskeletal Disorders: Yes Hx Falls: Yes - Gastrointestinal Hx Gastrointestinal Disorders: Yes Hx Gall Bladder Disease: Yes (CHOLECYSTECTOMY) Other/Comment: CONSTIPATION - Genitourinary/Gynecological Hx Genitourinary Disorders: (hx bladder ca) Hx Reproductive Disorders: Yes (hyst) - Psychiatric Hx Psychophysiologic Disorder: No Hx Substance Use: No - Surgical History Hx Cardiac Catheterization: Yes (stentX2) Hx Cholecystectomy: Yes Hx Hysterectomy: Yes - Anesthesia Hx Anesthesia: Yes Hx Anesthesia Reactions: No Hx Malignant Hyperthermia: No - Suicidal Assessment Feels Threatened In Home Enviroment: No Family/Social History - Physician Review Nursing Documentation Reviewed: Yes Family/Social History: No Known Family HX Smoking Status: Former Smoker Hx Alcohol Use: Yes (OCCASIONALLY H/O) Hx Substance Use: No Hx Substance Use Treatment: No Allergies/Home Meds Allergies/Adverse Reactions: Allergies erythromycin base Allergy (Verified 09/20/17 13:48) VOMITING shellfish derived Allergy (Verified 09/20/17 13:48) VOMITING zolpidem tartrate [From Ambien] Allergy (Verified 09/20/17 13:48) RASH Home Medications: Home Meds Medication Instructions Recorded Confirmed Isosorbide Mononitrate [Imdur] 30 mg PO DAILY 03/16/12 09/20/17 Atorvastatin [Lipitor] 20 mg PO DAILY 03/30/15 09/20/17 Losartan [Cozaar] 50 mg PO DAILY 03/30/15 09/20/17 Vit A/Vit C/Vit E/Zinc/Copper 1 tab PO DAILY 03/30/15 09/20/17 [Preservision] Warfarin [Coumadin] 3 mg PO DAILY 03/30/15 09/20/17 Albuterol/Ipratropium [Combivent 1 spr IH TID 12/07/15 09/20/17 Respimat] Aspirin [Heppner Aspirin] 81 mg PO DAILY 12/07/15 09/20/17 Bifidobacterium Infantis [Align] 4 mg PO HS 12/07/15 09/20/17 Calcium Carbonate [Caltrate 600] 600 mg PO DAILY 12/07/15 09/20/17 Eszopiclone [Lunesta] 3 mg PO HS 12/07/15 09/20/17 Nitroglycerin 0.4 mg SL PRN PRN 12/07/15 09/20/17 amLODIPine [Norvasc] 2.5 mg PO DAILY 04/17/17 09/20/17 Metoprolol Tartrate [Lopressor] 25 mg PO DAILY 09/20/17 09/20/17 levETIRAcetam [Keppra] 250 mg PO BID 09/20/17 09/20/17 Review of Systems - Physician Review All systems were reviewed & negative as marked: Yes - Review of Systems Constitutional: absent: Fevers, Night Sweats ENT: absent: Sore Throat Respiratory: absent: SOB, Cough Cardiovascular: absent: Chest Pain Gastrointestinal: Appetite Changes (decreased eating and drinking). absent: Abdominal Pain, Stool Changes, Diarrhea, Nausea, Vomiting Genitourinary Female: absent: Urine Output Changes Musculoskeletal: Back Pain. absent: Neck Pain Neurological: absent: Headache, Dizziness Physical Exam Vital Signs Reviewed: Yes Vital Signs Temp Pulse Resp BP Pulse Ox 04/25/18 15:53 72 172/70 H 04/25/18 14:39 99 F 58 L 19 169/65 H 97 Temperature: Afebrile Blood Pressure: Hypertensive Pulse: Bradycardic Respiratory Rate: Normal Appearance: Positive for: Well-Appearing, Non-Toxic, Comfortable Pain Distress: None Mental Status: Positive for: Alert and Oriented X 3 - Systems Exam Head: Present: Atraumatic, Normocephalic Pupils: Present: PERRL Extroacular Muscles: Present: EOMI Conjunctiva: Present: Normal Mouth: Present: Moist Mucous Membranes Neck: Present: Normal Range of Motion Respiratory/Chest: Present: Clear to Auscultation, Good Air Exchange. No: Respiratory Distress, Accessory Muscle Use Cardiovascular: Present: Regular Rate and Rhythm, Normal S1, S2. No: Murmurs Abdomen: No: Tenderness, Distention, Peritoneal Signs Back: Present: Paraspinal Tenderness (Paraspinal, lower thoracic and upper lumbar tenderness. ) Upper Extremity: Present: Normal Inspection. No: Cyanosis, Edema Lower Extremity: Present: Normal Inspection. No: Edema Neurological: Present: GCS=15, CN II-XII Intact, Speech Normal Skin: Present: Warm, Dry, Normal Color. No: Rashes Psychiatric: Present: Alert, Oriented x 3, Normal Insight, Normal Concentration Medical Decision Making ED Course and Treatment: 04/25/18 15:59 Impression: An 82 year old female is brought into the emergency department with daughter for complaint of back pain. Differential Diagnosis included but are not limited to: Musculoskeletal pain vs. Bone metastases Plan: -- Labs -- Tylenol, Imdur ER, and Toprol XL -- Reassess and disposition Progress Notes: 04/25/18 16:44: Case discussed with Dr. Lucia. Accepts patient to her service. labs have been reviewed. Pending CT results. PROCEDURE: CT Chest, Abdomen and Pelvis with intravenous contrast Dictator : Lamine Meraz MD Report Date : 04/25/2018 19:12:13 IMPRESSION: Mass lesion at the right upper lobe highly suspicious for malignant neoplasm. Scattered nodules in the lungs likely represent metastasis. Right hilum lymphadenopathy. Right adrenal gland mass likely represent metastasis. 1 centimeter low-attenuation lesion in the left liver lobe new compared to the previous exam and may represent benign liver cyst or metastasis. 04/25/18 19:[address] reviewed with patient and family. Patient will need work up for these findings. Will hold coumadin and aspirin at this time for possible biopsy. - Lab Interpretations Lab Results: 04/25/18 16:00 04/25/18 16:00 Lab Results 04/25/18 16:00: Sodium 133, Potassium 4.7, Chloride 96 L, Carbon Dioxide 27, Anion Gap 14, BUN 15, Creatinine 0.8, Est GFR ( Amer) > 60, Est GFR (Non- Af Amer) > 60, Random Glucose 96, Calcium 9.6, Magnesium 2.1, Total Bilirubin 0.6, AST 48 H D, ALT 34, Alkaline Phosphatase 87, Total Protein 8.2, Albumin 4.3 , Globulin 3.8, Albumin/Globulin Ratio 1.1 04/25/18 16:00: PT 20.5, INR 1.78, APTT 50.5 04/25/18 16:00: WBC 6.9 D, RBC 4.40, Hgb 13.1, Hct 38.6, MCV 87.7 D, MCH 29.8 , MCHC 33.9, RDW 13.7, Plt Count 147, MPV 10.3, Gran % 54.2, Lymph % (Auto) 27.1 , [place] % (Auto) 16.6 H, Eos % (Auto) 1.5, Baso % (Auto) 0.6, Gran # 3.72, Lymph # (Auto) 1.9, [place] # (Auto) 1.1 H, Eos # (Auto) 0.1, Baso # (Auto) 0.04 I have reviewed the lab results: Yes - RAD Interpretation Radiology Orders: 04/25/18 16:39 CHEST,ABD,PEL W/IV CONT ONLY [CT] Stat - Medication Orders Current Medication Orders: Discontinued Medications Acetaminophen (Tylenol 325mg Tab) 650 mg PO STAT STA Stop: 04/25/18 15:21 Last Admin: 04/25/18 15:52 Dose: 650 mg MAR Pain/Vitals Document 04/25/18 15:52 MS (Rec: 04/25/18 15:52 MS [place] [id number]) Pain Reassessment Is This A Pain ReAssessment? No Sleep Is patient sleeping during reassessment? No Presence of Pain Presence of Pain Yes Pain Scale Used Pain Scale Used Numeric Location Pain Location Body Site Back Description Constant Pain Behavior Irritability Isosorbide Mononitrate (Imdur Er) 30 mg PO STAT STA Stop: 04/25/18 15:22 Last Admin: 04/25/18 15:53 Dose: 30 mg Ketorolac Tromethamine (Toradol) 15 mg IVP STAT STA Stop: 04/25/18 16:39 Last Admin: 04/25/18 17:33 Dose: 15 mg MAR Pain Assessment Document 04/25/18 17:33 MS (Rec: 04/25/18 17:33 MS [facility] Pain Reassessment Is this a pain reassessment? No Sleep Is patient sleeping during reassessment? No Presence of Pain Presence of Pain Yes Pain Scale Used Pain Scale Used Numeric Location Pain Location Body Site Back Description Pain Behavior Grasping Site IVP Administration Document 04/25/18 17:33 MS (Rec: 04/25/18 17:33 [place] [id number]) Charges for Administration # of IVP Administrations 1 Metoprolol Succinate (Toprol Xl) 25 mg PO STAT STA Stop: 04/25/18 15:22 Last Admin: 04/25/18 15:53 Dose: 25 mg MAR Pulse and Blood Pressure Document 04/25/18 15:53 MS (Rec: 04/25/18 16:07 MS [email or web address]) Pulse Pulse Rate (60-90) 72 Blood Pressure Blood Pressure (100/60-150/90) 172/70 - Scribe Statement The provider has reviewed the documentation as recorded by the Scribe Deb Perez Provider Scribe Attestation: All medical record entries made by the Scribe were at my direction and personally dictated by me. I have reviewed the chart and agree that the record accurately reflects my personal performance of the history, physical exam, medical decision making, and the department course for this patient. I have also personally directed, reviewed, and agree with the discharge instructions and disposition. Disposition/Present on Arrival - Present on Arrival Any Indicators Present on Arrival: Yes History of DVT/PE: No History of Uncontrolled Diabetes: No Urinary Catheter: Yes (inserted as inpt dng dark red) History of Decub. Ulcer: No History Surgical Site Infection Following: None - Disposition Have Diagnosis and Disposition been Completed?: Yes Diagnosis: Intractable back pain, Lung mass Disposition: HOSPITALIZED Disposition Time: 16:44 Patient Plan: Admission Condition: GUARDED
[2018-04-25 16:26] LABS: BASO # 0.04 K/mm3 (0.0-2.0); BASO % 0.6 % (0.0-3.0); EOS # 0.1 (0.0-0.7); EOS % 1.5 % (1.5-5.0); GRAN # 3.72 (1.4-6.5); GRAN % 54.2 % (50.0-68.0); HEMOGLOBIN 13.1 g/dL (12.0-16.0); LYMPH # 1.9 (1.2-3.4); LYMPH % 27.1 % (22.0-35.0); MEAN CELL VOLUME 87.7 fl (80.0-105.0); MEAN CORPUSCULAR HEMOGLOBIN 29.8 pg (25.0-35.0); MEAN CORPUSCULAR HGB CONC 33.9 g/dl (31.0-37.0); MEAN PLATELET VOLUME 10.3 fl (7.0-11.0); MONO # 1.1 (0.1-0.6); MONO % 16.6 % (1.0-6.0); RBC 4.4 10^6/uL (3.5-6.1); RED CELL DISTRIBUTION WIDTH 13.7 % (11.5-14.5); WHITE BLOOD COUNT 6.9 10^3/ul (4.5-11.0)
[2018-04-25 16:30] LABS: INR 1.78; PROTHROMBIN TIME 20.5 SECONDS
[2018-04-25 16:32] LABS: PARTIAL THROMBOPLASTIN TIME 50.5 Seconds
[2018-04-25 16:33] LABS: ALB/GLOB RATIO 1.1 (1.1-1.8); ALBUMIN 4.3 g/dL (3.0-4.8); ALT/SGPT 34 U/L (7-56); AST/SGOT 48 U/L (14-36); BLOOD UREA NITROGEN 15 mg/dL (7-21); CALCIUM 9.6 mg/dL (8.4-10.5); GFR AFRICAN-AMERICAN > 60; GFR NON-AFRICAN AMERICAN > 60
[2018-04-25] MEDS ORDERED: Iohexol 350 MG/100 ML VIAL ONE (18:25)
--- NOTE | 2018-04-25 19:13 | CT ---
Date of service: 04/25/2018 PROCEDURE: CT Chest, Abdomen and Pelvis with intravenous contrast HISTORY: r/o lung mass COMPARISON: Comparison is made to the previous CT dated 07/31/2014 TECHNIQUE: IV dose administered: 100 mL Omnipaque 350. Axial and reformatted coronal and sagittal CT images of the chest abdomen and pelvis were obtained after IV contrast administration. Radiation dose: Total exam DLP = 510.6 mGy-cm. This CT exam was performed using one or more of the following dose reduction techniques: Automated exposure control, adjustment of the mA and/or kV according to patient size, and/or use of iterative reconstruction technique. FINDINGS: CT CHEST WITH CONTRAST: LUNGS: There is soft tissue mass lesion/consolidation at the right upper lobe measures 3.6 centimeter in the transverse diameter and 3.8 centimeter in the AP diameter highly suggestive of malignant neoplasm. There are scattered nodules in the lungs new compared to the previous exam likely represent metastasis. Foci of bronchiectasis are again noted. Focal airspace opacity and small infiltrate also noted at the right upper lobe may represent secondary pneumonia or less likely metastasis. MEDIASTINUM: The thoracic aorta is ectatic and tortuous. The main pulmonary artery is normal in size. The heart is upper normal limit in size. The upper airway is patent. LYMPH NODES: There are right hilar lymphadenopathy seen. Mildly enlarged precarinal and subcarinal lymph nodes are also seen. PLEURA: There is small left pleural effusion noted. No evidence of pneumothorax. Trace right pleural effusion is also seen. BONES: Unremarkable. OTHER FINDINGS: None. CT ABDOMEN AND PELVIS: LIVER: There is 1 centimeter low-attenuation lesion at the left liver lobe may represent benign liver cysts or new metastasis. GALLBLADDER AND BILE DUCTS: Status post cholecystectomy. PANCREAS: Unremarkable. No gross lesion or ductal dilatation. SPLEEN: Unremarkable. ADRENALS: There is heterogeneous enhancing mass at the right adrenal gland measures 3.5 x 2.7 centimeter likely represent metastasis. KIDNEYS AND URETERS: Unremarkable. No hydronephrosis. No solid mass. VASCULATURE: Unremarkable. No aortic aneurysm. BOWEL: Mild constipation is noted. No evidence of bowel obstruction. Colonic diverticulosis are seen without evidence of diverticulitis. APPENDIX: No evidence of appendicitis. PERITONEUM: Unremarkable. No free fluid. No free air. LYMPH NODES: Unremarkable. No enlarged lymph nodes. BLADDER: Unremarkable. REPRODUCTIVE: The uterus and adnexa are not visualized. BONES: Degenerative changes and heterogeneous density in the osseous structures noted. OTHER FINDINGS: None. IMPRESSION: Mass lesion at the right upper lobe highly suspicious for malignant neoplasm. Scattered nodules in the lungs likely represent metastasis. Right hilum lymphadenopathy. Right adrenal gland mass likely represent metastasis. 1 centimeter low-attenuation lesion in the left liver lobe new compared to the previous exam and may represent benign liver cyst or metastasis.
[2018-04-25] MEDS ORDERED: Home Med 1 UNIT PO SCH (22:00)
[2018-04-25] MEDS ORDERED: Enoxaparin 60 mg Syringe SC SCH (22:15)
[2018-04-25] MEDS ORDERED: TraMADol/Apap 37.5/325 mg Tab PO PRN (22:16)
--- NOTE | 2018-04-25 22:54 | HP ---
HISTORY OF PRESENT ILLNESS: The patient is 82 years old, patient of Dr. Hay. Went to [facility], comes in with intractable back pain. Over there, she had MRI done that shows some degenerative changes and x-ray chest shows right upper lung mass, so she was referred to Dr. Cooley for further evaluation. She called me to admit her for further workup since the patient's daughter is on disability and cannot bring mom to different offices. Also, she is on Coumadin that need to be bridged to prep her for biopsy. Complained of intractable back pain. Complained of generalized weakness and mild shortness of breath. PAST MEDICAL HISTORY: Significant for, 1. CVA in 03/2017. 2. History of CA of bladder. 3. Hypertension. 4. Paroxysmal AFib. 5. Coronary artery disease, status post angioplasty. 6. Hyperlipidemia. 7. History of head and neck tumor, status post radiation in remote past. 8. Hypothyroidism. ALLERGIES: SHE IS ALLERGIC TO ERYTHROMYCIN, SHELLFISH AND ZOLPIDEM. PAST SURGICAL HISTORY: Significant for cholecystectomy and history of macular degeneration. MEDICATIONS AT HOME: She is on, 1. Keppra 250 twice a day. 2. Amlodipine 2.5 daily. 3. Metoprolol 25 daily. 4. Losartan 50 mg daily. 5. Isosorbide 30 mg daily. 6. Caltrate 600 mg daily. 7. Lipitor 20 mg daily. 8. Coumadin 3 mg daily. 9. Nitroglycerin 0.4 sublingual p.r.n. 10. Synthroid 150 mcg daily. 11. Lunesta 3 mg at bedtime. 12. Aspirin 81 daily. 13. Albuterol. SOCIAL HISTORY: She lives with her daughter. She used to be a heavy smoker in the past. Socially drinks. PHYSICAL EXAMINATION: GENERAL: She is awake, alert, oriented, communicative. VITAL SIGNS: She is afebrile, pulse 61, respirations 16, blood pressure 152/76. LUNGS: Bilateral fair airflow. Diffusely decreased breath sound. HEART: S1 and S2 audible. ABDOMEN: Soft. Nontender. No rebound. No guarding. NEUROLOGICAL: She is awake, alert, oriented. Has generalized weakness. LABORATORY EXAM: WBC 6.9, hemoglobin 13.1, hematocrit 38.6, platelet 147. PT 1.5, INR 1.78, PTT 50.5. Chemistry: Sodium 133, potassium 4.7, chloride 96, CO2 of 27, BUN 15, creatinine 0.8, blood sugar 196, AST 48. CT scan of the abdomen and pelvis and chest was done that shows mass lesion at the right upper lobe, 3.6 in transverse and 3.8 cm in AP diameter, highly suspicious for malignancy. Scattered nodule in the lung, likely representing mets and she has significant right hilar adenopathy, possible mets to the liver. ASSESSMENT: 1. Right lung mass with metastasis to the liver and significant right hilar adenopathy. 2. Chronic obstructive pulmonary disease. 3. History of deep venous thrombosis. 4. Paroxysmal atrial fibrillation. 5. Coronary artery disease. 6. Hypertension. 7. Dyslipidemia. PLAN: Currently, the patient is off of Coumadin. Start her on Lovenox. Start her on nebulizer treatment. We will continue her usual medications. Consult for Dr. Cooley and consult for Dr. Max Dickson has been requested. I will bridge her with Lovenox for now until evaluated by Dr. Max Dickson in the a.m. with possible biopsy in the a.m. We will follow up this patient in the a.m. Beka Lucia MD
--- NOTE | 2018-04-26 01:09 | CON ---
DATE: 04/25/2018 CONSULT REQUESTED BY: Dr. Lucia. REASON FOR CONSULTATION: Right upper lobe mass. HISTORY OF PRESENT ILLNESS: Ms. Le is an 82-year-old female presented to the office today after she was seen at [facility] ER for back pain. CAT scan of the thoracic spine showed right upper lobe mass. She was told that she has stage IV lung cancer and was discharged home to be followed up with primary care doctor. She called our office for evaluation for lung cancer. She was complaining of back pain. Localized to lower part of the chest, midline. She could not localize the pain. Pain was vague in the spine. She had loss of appetite for the past 1 month. She was in good health a month ago. She was transported to ER from office by [facility]. Discussed with Dr. Loyola. CAT scan of the chest, abdomen and pelvis done in the ER showed right upper lobe mass, multiple small nodule in the right lobe. A 1 cm lesion in the liver and right adrenal mass. She has received a dose of Toradol in the ER 15 mg with marked improvement in back pain. No nausea. No vomiting. No chest pain. PAST MEDICAL HISTORY: Coronary artery disease, status post stent placement; hysterectomy; macular degeneration; peripheral arterial disease; she has prior history of bladder cancer; squamous cell cancer of the neck; history of recurrent pneumonia. PAST SURGICAL HISTORY: Cholecystectomy, hysterectomy, cardiac catheterization with stent placement. PERSONAL HISTORY: Former smoker. No history of alcohol abuse. SOCIAL HISTORY: Lives at home with the daughter. ALLERGIES: ERYTHROMYCIN, SHELLFISH, AMBIEN. HOME MEDICATIONS: Imdur, Lipitor 20 mg daily, Cozaar 50 mg daily, multivitamin, Coumadin 3 mg daily, albuterol t.i.d., aspirin 81 mg daily, calcium 600 mg daily, nitroglycerin 0.4 mg p.r.n., Norvasc 2.5 mg daily, metoprolol 25 mg daily, Keppra 250 mg p.o. b.i.d. REVIEW OF SYSTEMS: As per HPI. Rest of 12-point review of systems reviewed negative. PHYSICAL EXAMINATION: GENERAL: Comfortable in bed, in no acute distress. VITAL SIGNS: Temperature 99, respiratory rate 19 per minute, blood pressure 160/65, pulse rate is 97 per minute, oxygen saturation 98% on room air. HEENT: Pallor positive, cachexia present. CHEST: Air entry present and equal bilateral. No added sound. CARDIOVASCULAR: S1, S2 normal. No murmur. No gallop. ABDOMEN: Soft, nontender. No hepatosplenomegaly. EXTREMITY: No edema. TOW MOTOR OPERATOR: Alert and oriented x3. No focal sensorimotor deficit. SPINE: Nontender. SKIN: No petechiae. No rash. LABORATORY DATA: White count 6.9, hemoglobin 13.1, hematocrit 38.6, platelets 147. Sodium 133, potassium 4.7, BUN 15, creatinine 0.8. CAT scan as per HPI. ASSESSMENT: 1. Right upper lobe lung mass suspicious for malignancy. We will consult Dr. Max Dickson for biopsy of the right upper lobe mass. This might be a primary lung malignancy. She has a history of bladder cancer in the past. Might be metastatic bladder carcinoma. I will hold the Lovenox or Coumadin in anticipation for biopsy tomorrow. Discussed with the daughter at bedside. They agreed with the plan. Both the patient and family want biopsy and get treatment for cancer. 2. Intractable back pain. Currently on Tramadol. Received one dose of Toradol in the ER. If pain not controlled with Tramadol, I will consider adding long-acting morphine. MS Contin 15 mg p.o. b.i.d. She might have metastatic lesion in the spine. None obvious on the CAT scan of the chest, abdomen and pelvis. PET scan will be done as an outpatient for further evaluation. 3. Coags normal. 4. Hematology: Blood count stable. 5. Nutrition: Weight loss. Might be related to malignancy. Thank you, Dr. Lucia for allowing me to participate in Ms. Le' care. Sonal Cooley MD
[2018-04-26] MEDS: Albuterol-Ipratrop 3 mg / 0.5 (3 ml) UD IH SCH ×4 (01:13→20:04)
[2018-04-26] MEDS ORDERED: Gadodiamide 287 MG/ML VIAL (15ML) IV ONE (14:56)
--- NOTE | 2018-04-26 15:43 | MRI ---
Date of service: 04/26/2018 PROCEDURE: MRI BRAIN WITH AND WITHOUT CONTRAST HISTORY: r/o mets COMPARISON: MRI the brain 05/06/[address] the head 04/22/2007 TECHNIQUE: Multiplanar, multisequence MR images of the brain were obtained with and without intravenous contrast enhancement. FINDINGS: HEMORRHAGE: The prior very small right cortical/ bordering extra-axial hyperdensity compatible with a previously referenced very small right subdermal hematoma with contiguous small right subarachnoid blood here over the right fronto temporal parietal lobe seen as T2 hyperintensity on the prior MR series 5, image 19 is difficulty even appreciate the residual on the current MR. no interval acute infarcts seen. DWI: No evidence of an acute or early subacute infarction. BRAIN PARENCHYMA: No mass,mass effect or edema. No prior cerebral atrophy and prior concomitant chronic microvascular ischemic changes periventricular and deep white matter and evonne similar in appearance. ENHANCEMENT: .A left paracentral inter hemispheric 4 x 9 mm dural enhancement. No surrounding edema No additional areas of enhancement appreciated VENTRICLES: The ventricular dilatation is similar commensurate with the degree of atrophy. CRANIUM: Unremarkable. ORBITS: Grossly unremarkable. PARANASAL SINUSES/MASTOIDS: Clear VASCULAR SYSTEM: Skull base flow voids intact. OTHER FINDINGS: None . IMPRESSION: Inter hemispheric sub cm left paracentral dural enhancement without significant surrounding edema A solitary dural enhancing primary and secondary metastatic focus of enhancement is a consideration. Its chronicity is unknown prior contrast-enhanced studies are appreciated. Consider short-term follow-up postcontrast enhanced MR brain imaging to reassess. No other areas of enhancement with edema to suggest more extensive enhancing metastatic disease. No acute infarct seen Cerebral atrophy and extensive bilateral and fairly symmetrical periventricular and deep white matter chronic microvascular disease changes are renoted chronic appearing ischemic changes in the evonne also noted. Prior tiny focus of right subdural hematoma and prior contiguous right subarachnoid blood is difficult to identify any residual here
--- NOTE | 2018-04-26 16:58 | PN ---
Copied To: Beka Lucia MD DATE: 04/26/2018 SUBJECTIVE: The patient was lying in bed, seems to be comfortable. No nausea, vomiting. No diarrhea. Eating and tolerating. No shortness of breath. PHYSICAL EXAMINATION: VITAL SIGNS: She is afebrile, pulse 97, 65. LUNGS: Bilateral fair airflow. No rhonchi or crackle. HEART: S1, S2 audible. ABDOMEN: Soft, nontender. No rebound, no guarding. NEUROLOGICAL: She is awake, alert, oriented, able to communicate. Moves all extremities. LABORATORY EXAM: CT scan shows right upper lung mass. ASSESSMENT: 1. History of paroxysmal atrial fibrillation. 2. Hypertension. 3. Coronary artery disease. 4. History of bladder cancer. 5. Degenerative disc disease. PLAN: She is off of anticoagulant. We will talk to Dr. Max Dickson for biopsy of right lung mass and after that, we will make arrangement for chemotherapy depending on biopsy report. Beka Lucia MD
[2018-04-26] MEDS ORDERED: Phytonadione 10 mg/ml Inj (Adult) SC ONE (18:32)
[2018-04-27] MEDS: Albuterol-Ipratrop 3 mg / 0.5 (3 ml) UD IH SCH ×4 (03:00→20:10)
[2018-04-27 06:46] LABS: INR 1.37; PROTHROMBIN TIME 15.8 SECONDS (9.4-12.5)
[2018-04-27 06:48] LABS: PARTIAL THROMBOPLASTIN TIME 36.4 Seconds (25.1-36.5)
[2018-04-27 06:52] LABS: BLOOD UREA NITROGEN 14 mg/dL (7-21); CALCIUM 9.5 mg/dL (8.4-10.5); GFR AFRICAN-AMERICAN > 60; GFR NON-AFRICAN AMERICAN > 60
[2018-04-27 07:59] LABS: BASO # 0.05 K/mm3 (0.0-2.0); BASO % 0.7 % (0.0-3.0); EOS # 0.1 (0.0-0.7); GRAN # 4.29 (1.4-6.5); GRAN % 60.2 % (50.0-68.0); HEMOGLOBIN 12.3 g/dL (12.0-16.0); LYMPH # 1.4 (1.2-3.4); LYMPH % 19.4 % (22.0-35.0); MEAN CELL VOLUME 87.1 fl (80.0-105.0); MEAN CORPUSCULAR HEMOGLOBIN 29.4 pg (25.0-35.0); MEAN CORPUSCULAR HGB CONC 33.7 g/dl (31.0-37.0); MEAN PLATELET VOLUME 10.8 fl (7.0-11.0); MONO # 1.3 (0.1-0.6); MONO % 17.7 % (1.0-6.0); RBC 4.19 10^6/uL (3.5-6.1); RED CELL DISTRIBUTION WIDTH 13.9 % (11.5-14.5); WHITE BLOOD COUNT 7.1 10^3/ul (4.5-11.0)
[2018-04-27] MEDS ORDERED: Midazolam 2 MG/2 ML VIAL ONE (10:34)
[2018-04-27] MEDS ORDERED: Lidocaine 1% Inj (20ml) ONE (10:34)
[2018-04-27] MEDS ORDERED: Midazolam 2 MG/2 ML VIAL IVP ONE (10:35)
[2018-04-27] MEDS ORDERED: Sodium Chloride 0.45% 1,000 ML IV SCH (11:15)
[2018-04-27 11:50] VITALS: RESP 18
--- NOTE | 2018-04-27 14:09 | RAD ---
Date of service: 04/27/2018 HISTORY: r/o rt PTX COMPARISON: Earlier CT guided biopsy of the right adrenal gland FINDINGS: LUNGS: Focal infiltrate in the right lung apex. No evidence of pneumothorax PLEURA: No significant pleural effusion identified, no pneumothorax apparent. CARDIOVASCULAR: Normal. OSSEOUS STRUCTURES: No significant abnormalities. VISUALIZED UPPER ABDOMEN: Normal. OTHER FINDINGS: None. IMPRESSION: Focal infiltrate in the right lung apex. No evidence of pneumothorax
--- NOTE | 2018-04-27 14:14 | CP.PCM.CON ---
History of Present Illness - History of Present Illness History of Present Illness: Palliative consult requested by Dr Marianna Lucia Reason: Gaols of care and advance care planning 82 year old female with history of bladder cancer, HTN, PAT and CAD who presented on 04/26/18 with intractable back pain, weakness and mild shortness of breath. She was seen at [facility] a week prior with same complaint and was found to have RUL lung mass and degenerative changes in spine. Brain MRI 04/26/18 showed inter hemispheric left paracentral enhancement without edema, solitary dural primary and secondary metastatic focus enhancement, no acute infarct, prior focus of right subdural hematoma. CT chest/ab/pelvis 04/25/18 showing mass lesion RUL lung, right hilar lymphadenopathy, right adrenal gland mass, 1 cm low attenuation lesion left lobe of liver. PMHx: CVA, Ca of bladder, HTN, PAT on Coumadin, CAD s/p angioplasty, HLD, hypothyroidism. Social History: Former heavy smoker, social alcohol or drug use. Lives with daughter. Family History: Non contributory. Advance Care Planing:The patient does has an Advance Directive Review of Systems:As per HPI, otherwise negative 12 point review Past Patient History - Infectious Disease Hx of Infectious Diseases: None - Tetanus Immunizations Tetanus Immunization: Unknown - Past Social History Smoking Status: Former Smoker - CARDIAC Hx Hypercholesterolemia: Yes Hx Hypertension: Yes - PULMONARY Hx Chronic Obstructive Pulmonary Disease (COPD): Yes - NEUROLOGICAL HX Cerebrovascular Accident: Yes (2016) - HEENT Hx Cataracts: Yes (B/L SX) Hx Macular Degeneration: Yes - RENAL Hx Chronic Kidney Disease: No - ENDOCRINE/METABOLIC Hx Hypothyroidism: Yes - HEMATOLOGICAL/ONCOLOGICAL Hx Cancer: Yes (BLADDER 2004/ SKIN 2008 &2013) - INTEGUMENTARY Hx Squamous Cell: Yes (NECK, ARM, EYEBROW) - MUSCULOSKELETAL/RHEUMATOLOGICAL Hx Falls: Yes - GASTROINTESTINAL Hx Gastrointestinal Disorders: Yes Hx Gall Bladder Disease: Yes (CHOLECYSTECTOMY) Other/Comment: CONSTIPATION - GENITOURINARY/GYNECOLOGICAL Other/Comment: NARAYAN - PSYCHIATRIC Hx Substance Use: No - SURGICAL HISTORY Hx Surgeries: Yes Hx Cardiac Catheterization: Yes Hx Hysterectomy: Yes - ANESTHESIA Hx Anesthesia: Yes Hx Anesthesia Reactions: No Hx Malignant Hyperthermia: No Meds Allergies/Adverse Reactions: Allergies Allergy/AdvReac Type Severity Reaction Status Date / Time erythromycin base Allergy VOMITING Verified 09/20/17 13:48 shellfish derived Allergy VOMITING Verified 09/20/17 13:48 zolpidem tartrate Allergy RASH Verified 09/20/17 13:48 [From Francesien] - Medications Medications: Current Medications Acetaminophen (Tylenol 325mg Tab) 650 mg PO Q4 PRN PRN Reason: Pain, Mild (1-3) Albuterol/Ipratropium (Duoneb 3 Mg/0.5 Mg (3 Ml) Ud) 3 ml IH [id number] [facility] Last Admin: 04/27/18 13:42 Dose: 3 ml Amlodipine Besylate (Norvasc) 2.5 mg PO DAILY [facility] Last Admin: 04/27/18 10:05 Dose: 2.5 mg Atorvastatin Calcium (Lipitor) 20 mg PO DIN [facility] Last Admin: 04/26/18 17:16 Dose: 20 mg Calcium Carbonate (Caltrate) 600 mg PO DAILY [facility] Last Admin: 04/27/18 10:04 Dose: 600 mg Famotidine (Pepcid) 20 mg PO DAILY [facility] Last Admin: 04/27/18 10:05 Dose: 20 mg Sodium Chloride (Sodium Chloride 0.45%) 1,000 mls @ 80 mls/hr IV .[id number] [facility] Stop: 04/27/18 20:00 Isosorbide Mononitrate (Imdur Er) 30 mg PO DAILY [facility] Last Admin: 04/27/18 10:05 Dose: 30 mg Levetiracetam (Keppra) 250 mg PO BID [facility] Last Admin: 04/27/18 10:05 Dose: 250 mg Losartan Potassium (Cozaar) 50 mg PO DAILY [facility] Last Admin: 04/27/18 10:05 Dose: 50 mg Metoprolol Tartrate (Lopressor) 25 mg PO DAILY [facility] Last Admin: 04/27/18 10:05 Dose: 25 mg Ondansetron HCl (Zofran Inj) 4 mg IVP Q6H PRN PRN Reason: Nausea/Vomiting Last Admin: 04/27/18 13:13 Dose: 4 mg Tramadol/Acetaminophen (Ultracet 37.5/325 Mg) 1 tab PO Q6H PRN PRN Reason: Pain, moderate (4-7) Results - Vital Signs Recent Vital Signs: Last Vital Signs Temp 97.7 F 04/27/18 11:44 Pulse 50 L 04/27/18 11:44 Resp 18 04/27/18 11:44 BP 111/58 L 04/27/18 12:07 Pulse Ox 98 04/27/18 11:44 - Labs Result Diagrams: 04/27/18 06:15 04/27/18 06:15 Labs: Laboratory Results - last 24 hr 04/27/18 04/27/18 04/27/18 06:15 06:15 06:15 WBC 7.1 RBC 4.19 Hgb 12.3 Hct 36.5 MCV 87.1 MCH 29.4 MCHC 33.7 RDW 13.9 Plt Count 142 MPV 10.8 Gran % 60.2 Lymph % (Auto) 19.4 L [place] % (Auto) 17.7 H Eos % (Auto) 2.0 Baso % (Auto) 0.7 Gran # 4.29 Lymph # (Auto) 1.4 [place] # (Auto) 1.3 H Eos # (Auto) 0.1 Baso # (Auto) 0.05 PT 15.8 H INR 1.37 APTT 36.4 Sodium 135 Potassium 4.7 Chloride 100 Carbon Dioxide 26 Anion Gap 15 BUN 14 Creatinine 0.7 Est GFR ( Amer) > 60 Est GFR (Non-Af Amer) > 60 Random Glucose 88 Calcium 9.5 Assessment & Plan - Assessment and Plan (Free Text) Assessment: 82 john old female with history of CVA, [place], CAD, bladder cancer who was admitted with intractable back pain,lung mass, right adrenal mass and liver lesion, probable brain metastasis and weakness I met with patient,daughters Cynthia (bedside)and Meera (speaker phone). Patient and family aware of CT scan findings, which indicate pat m likely to have stage IV cancer, biopsy yesterday,path report pending. Patient and family expressed that they do not want to pursue any form of palliative treatment. They stated they do not want chemotherapy or radiation therapy. Patient refusing [facility] for rehab. Family interested in hospice care. Hospice services were explained in detail, questions answered. Family requesting to meet with hospice provider. Appointment with [facility] tomorrow. Psychosocial support provided. Time spent with patient and family in goals of care and advance care planning, 50 minutes Plan: Goals of care and advance care planning Hospice evaluation for home services Pain management: Fentanyl 12 mcg transdermal patch, Oxycodone 5mg IR as needed for breakthrough pain Bowel regimen: Docusate daily, will add Miralax if needed. On Keppra, may need Decadron daily for management of brain metastasis
[2018-04-27] MEDS ORDERED: oxyCODONE 5 mg Immediate Release Tab PO PRN (15:33)
--- NOTE | 2018-04-27 15:35 | PN ---
Copied To: Beka Lucia MD Attending MD: Beka Lucia MD DATE: 04/27/2018 SUBJECTIVE: The patient is 82-year-old, went for right upper lung biopsy, doing well, a little anxious. PHYSICAL EXAMINATION: VITAL SIGNS: She is afebrile, pulse 69, respiration 20, blood pressure 146/77. LUNGS: Bilateral fair airflow. No rhonchi or crackle. HEART: S1 and S2 audible. ABDOMEN: Soft, nontender. No rebound, no guarding. NEUROLOGIC: The patient is awake, alert, and oriented. Able to communicate. LABORATORY DATA: WBC is 7.1, hemoglobin 12.3, hematocrit 36.5, platelet 142. Chemistry: Sodium 135, potassium 4.7, chloride 100, CO2 of 26, BUN 14, creatinine 0.7, blood sugar of 88. AST 48. Had MRI of the brain done, showed solitary dural enhancing and secondary metastatic focus enhancement, no acute infarcts. Cerebral atrophy with extensive bilateral and periventricular white matter chronic microvascular disease. ASSESSMENT: 1. Right upper lung mass. 2. Right adrenal gland mass. 3. Right hilar lymphadenopathy. 4. Seizure disorder. 5. Hypertension. 6. Coronary artery disease. 7. Hyperlipidemia. 8. Hypothyroidism. 9. Intractable back pain. PLAN: The patient is getting renal biopsy today and started on IV fluid. We will restart on Coumadin once it is okay with Dr. Max Dickson, though it has to be started today or tomorrow. Then, we will cover her with Lovenox and we will follow up this patient in a.m. Beka Lucia MD
--- NOTE | 2018-04-27 17:39 | CT ---
PROCEDURE: CT guided right adrenal biopsy. HISTORY: Multiple lung masses with bilateral adrenal masses. Probable lung CA with adrenal Mets. Evaluate for malignancy. PHYSICIAN(S): Max Dickson MD. TECHNIQUE: The relative risks and indications of the procedure were explained to the patient and consent obtained. The patient was placed prone on the CT scanner and preliminary images through the adrenals obtained. Conscious sedation and monitoring were provided throughout the procedure by a nurse. There is a 3 x 4.5 cm right adrenal mass noted.. A right posterior approach was selected and the area prepped and draped in the usual sterile fashion. 1% Xylocaine was used to anesthetize the skin and soft tissues. A 17-gauge guiding needle was advanced into the 4.5 cm right adrenal mass. Its position was confirmed with CT. Using coaxial technique, multiple core biopsies were obtained. The postprocedure images show no evidence of significant hemorrhage. IMPRESSION: 1. CT-guided right adrenal biopsy as described above.
[2018-04-27] MEDS ORDERED: LUNESTA 3MG TAB PO SCH (22:00)
[2018-04-28] MEDS: Albuterol-Ipratrop 3 mg / 0.5 (3 ml) UD IH SCH ×3 (02:55→14:14)
[2018-04-28 09:07] VITALS: BP 136/69; PULSE 80; TEMP 97.8; O2SAT 96
--- NOTE | 2018-04-28 12:28 | CP.PCM.PN ---
Subjective - Date & Time of Evaluation Date of Evaluation: 04/28/18 Time of Evaluation: 09:00 - Subjective Subjective: Comfortable in chair. Pain back decreased. She is able to ambulate without difficulty. Apatite improved. She had Ct guided biopsy of adrenal mass yesterday with Dr. Dickson. No complications. Objective - Vital Signs/Intake and Output Vital Signs (last 24 hours): Temp Pulse Resp BP Pulse Ox 97.8 F 80 18 136/69 96 04/28/18 09:06 04/28/18 09:06 04/28/18 09:06 04/28/18 09:31 04/28/18 09:06 Intake and Output: 04/28/18 04/28/18 06:59 18:59 Intake Total 240 Balance 240 - Medications Medications: Current Medications Acetaminophen (Tylenol 325mg Tab) 650 mg PO Q4 PRN PRN Reason: Pain, Mild (1-3) Albuterol/Ipratropium (Duoneb 3 Mg/0.5 Mg (3 Ml) Ud) 3 ml IH [id number] [facility] Last Admin: 04/28/18 08:28 Dose: 3 ml Amlodipine Besylate (Norvasc) 2.5 mg PO DAILY [facility] Last Admin: 04/28/18 09:31 Dose: 2.5 mg Atorvastatin Calcium (Lipitor) 20 mg PO DIN [facility] Last Admin: 04/27/18 18:41 Dose: 20 mg Calcium Carbonate (Caltrate) 600 mg PO DAILY [facility] Last Admin: 04/28/18 09:29 Dose: 600 mg Docusate Sodium (Colace) 100 mg PO DAILY [facility] Last Admin: 04/28/18 09:29 Dose: 100 mg Famotidine (Pepcid) 20 mg PO DAILY [facility] Last Admin: 04/28/18 09:31 Dose: 20 mg Fentanyl (Duragesic) 1 patch TD Q72H [facility] Last Admin: 04/27/18 15:53 Dose: 1 patch Home Med (Home Med) 1 unit PO HS [facility] Last Admin: 04/27/18 21:23 Dose: 1 unit Isosorbide Mononitrate (Imdur Er) 30 mg PO DAILY [facility] Last Admin: 04/28/18 09:30 Dose: 30 mg Levetiracetam (Keppra) 250 mg PO BID [facility] Last Admin: 04/28/18 09:30 Dose: 250 mg Losartan Potassium (Cozaar) 50 mg PO DAILY [facility] Last Admin: 04/28/18 09:30 Dose: 50 mg Metoprolol Tartrate (Lopressor) 25 mg PO DAILY [facility] Last Admin: 04/28/18 09:30 Dose: 25 mg Ondansetron HCl (Zofran Inj) 4 mg IVP Q6H PRN PRN Reason: Nausea/Vomiting Last Admin: 04/27/18 13:13 Dose: 4 mg Oxycodone HCl (Oxycodone Immediate Release Tab) 5 mg PO Q4H PRN PRN Reason: Pain, moderate (4-7) Warfarin Sodium (Coumadin) 5 mg PO 1800 [facility] PRN Reason: Protocol Last Admin: 04/27/18 18:41 Dose: 5 mg - Labs Labs: 04/27/18 06:15 04/27/18 06:15 PT 15.8 SECONDS (9.4-12.5) H 04/27/18 06:15 INR 1.37 04/27/18 06:15 APTT 36.4 Seconds (25.1-36.5) 04/27/18 06:15 - Constitutional Appears: Well, Non-toxic - Head Exam Head Exam: ATRAUMATIC, NORMAL INSPECTION, NORMOCEPHALIC - Eye Exam Eye Exam: Normal appearance Pupil Exam: NORMAL ACCOMODATION - ENT Exam ENT Exam: Mucous Membranes Moist, Normal Exam - Neck Exam Neck Exam: Normal Inspection - Respiratory Exam Respiratory Exam: Clear to Ausculation Bilateral, NORMAL BREATHING PATTERN - Cardiovascular Exam Cardiovascular Exam: REGULAR RHYTHM, +S1, +S2 - GI/Abdominal Exam GI & Abdominal Exam: Soft, Normal Bowel Sounds - Extremities Exam Extremities Exam: Normal Capillary Refill, Normal Inspection - Back Exam Back Exam: NORMAL INSPECTION - Neurological Exam Neurological Exam: Alert, Awake, Normal Gait, Oriented x3 - Skin Skin Exam: Pallor Assessment and Plan - Assessment and Plan (Free Text) Assessment: 1. Right lung mass, right adrenal mass. S/P biopsy of adrenal mass. patient asked me biopsy results. I told her it will take few days for results to be out. She asked me that if can confirm to her today that she has cancer. I told her I cannot and have to wait for biopsy results. She wandered that "what is the hoffman for putting her hospice then ? ' I told her decision is hers and will go by what she tell us to do. I also discussed with her role of palliative chemo to alleviate symptoms. She told me that she will get back to me on this. 2. Pain back : controlled with current meds. 3. Anemia : mild anemia : will do work up. 4. renal BUN, creatinine stable. Thank you Dr. Lucia for allowing us to participate in her care.
--- NOTE | 2018-04-28 17:17 | CP.PCM.PN ---
Subjective - Date & Time of Evaluation Date of Evaluation: 04/28/18 Time of Evaluation: 14:00 - Subjective Subjective: Alert, states that her back pain is tolerable. Denies headache.. Objective - Vital Signs/Intake and Output Vital Signs (last 24 hours): Temp Pulse Resp BP Pulse Ox 97.8 F 80 18 136/69 96 04/28/18 09:06 04/28/18 09:06 04/28/18 09:06 04/28/18 09:31 04/28/18 09:06 Intake and Output: 04/28/18 04/28/18 06:59 18:59 Intake Total 240 Balance 240 - Medications Medications: Current Medications Acetaminophen (Tylenol 325mg Tab) 650 mg PO Q4 PRN PRN Reason: Pain, Mild (1-3) Albuterol/Ipratropium (Duoneb 3 Mg/0.5 Mg (3 Ml) Ud) 3 ml IH [id number] [facility] Last Admin: 04/28/18 14:14 Dose: 3 ml Amlodipine Besylate (Norvasc) 2.5 mg PO DAILY [facility] Last Admin: 04/28/18 09:31 Dose: 2.5 mg Atorvastatin Calcium (Lipitor) 20 mg PO DIN [facility] Last Admin: 04/27/18 18:41 Dose: 20 mg Calcium Carbonate (Caltrate) 600 mg PO DAILY [facility] Last Admin: 04/28/18 09:29 Dose: 600 mg Docusate Sodium (Colace) 100 mg PO DAILY [facility] Last Admin: 04/28/18 09:29 Dose: 100 mg Famotidine (Pepcid) 20 mg PO DAILY [facility] Last Admin: 04/28/18 09:31 Dose: 20 mg Fentanyl (Duragesic) 1 patch TD Q72H [facility] Last Admin: 04/27/18 15:53 Dose: 1 patch Home Med (Home Med) 1 unit PO HS [facility] Last Admin: 04/27/18 21:23 Dose: 1 unit Isosorbide Mononitrate (Imdur Er) 30 mg PO DAILY [facility] Last Admin: 04/28/18 09:30 Dose: 30 mg Levetiracetam (Keppra) 250 mg PO BID [facility] Last Admin: 04/28/18 09:30 Dose: 250 mg Losartan Potassium (Cozaar) 50 mg PO DAILY [facility] Last Admin: 04/28/18 09:30 Dose: 50 mg Metoprolol Tartrate (Lopressor) 25 mg PO DAILY [facility] Last Admin: 04/28/18 09:30 Dose: 25 mg Ondansetron HCl (Zofran Inj) 4 mg IVP Q6H PRN PRN Reason: Nausea/Vomiting Last Admin: 04/27/18 13:13 Dose: 4 mg Oxycodone HCl (Oxycodone Immediate Release Tab) 5 mg PO Q4H PRN PRN Reason: Pain, moderate (4-7) Warfarin Sodium (Coumadin) 5 mg PO 1800 [facility] PRN Reason: Protocol - Labs Labs: 04/27/18 06:15 04/27/18 06:15 PT 15.8 SECONDS (9.4-12.5) H 04/27/18 06:15 INR 1.37 04/27/18 06:15 APTT 36.4 Seconds (25.1-36.5) 04/27/18 06:15 - Constitutional Appears: Cachectic, Chronically Ill - Head Exam Head Exam: NORMOCEPHALIC - Eye Exam Eye Exam: Normal appearance, PERRL - ENT Exam ENT Exam: Mucous Membranes Moist, Normal Oropharynx - Respiratory Exam Respiratory Exam: Decreased Breath Sounds, NORMAL BREATHING PATTERN - Cardiovascular Exam Cardiovascular Exam: REGULAR RHYTHM, +S1, +S2 - GI/Abdominal Exam GI & Abdominal Exam: Soft, Diminished Bowel Sounds - Extremities Exam Extremities Exam: Normal Capillary Refill, Normal Inspection - Back Exam Back Exam: NORMAL INSPECTION, tenderness - Neurological Exam Neurological Exam: Alert, Oriented x3 - Skin Skin Exam: Dry, Pallor Assessment and Plan - Assessment and Plan (Free Text) Assessment: 82 year old female with history of bladder cancer, HTN,seizures who is admitted with shortness of breath, weakness, lung mass, right adrenal mass, liver lesion and possible metastasis to brain. Biopsy of adrenal mass done 04/25, path result pending. The family is interested in hospice care. Family met with myself and [facility] care liaison. Goals of care discussed at length.Family agreeable to transitioning to hospice upon discharged. Psychosocial support provided Time spent with family in goals of care and advance care planning, 60 minutes Plan: Hospice evaluation DNR/DNI Pain: Fentanyl 12mcg transdermal patch, oxycodone 5mg IR as needed every 6 hours. Continue Keppra for seizure disorder. Decadron 2 mg daily
--- NOTE | 2018-04-29 07:57 | DS ---
Copied To: Beka Lucia MD Attending MD: Beka Lucia MD HISTORY OF PRESENT ILLNESS: The patient is 82 years old who had back pain, was seen in [facility], they had CT of the thoracic and lumbar spine, was found to have degenerative changes and questionable mets. She also had x-ray done during that stay and was found to have right upper lung mass. When she was discharged to follow with PMD, they went to Dr. Cooley who referred her to emergency room for further evaluation. Since patient is on anticoagulant, she was bridged with Lovenox and taken off of Coumadin, was evaluated by Dr. Max Dickson who had biopsy from the mass on her adrenal. Patient restarted on Coumadin. She was given 5 mg yesterday and 5 mg today. PHYSICAL EXAMINATION: GENERAL: She was sitting in chair comfortable, fully awake, alert, oriented. VITAL SIGNS: She is afebrile, pulse 80, respirations 18, blood . LUNGS: Bilateral fair airflow. No rhonchi or crackle heard. HEART: S1, S2 audible. ABDOMEN: Soft, nontender. No rebound. No guarding. NEUROLOGICAL: She is awake, alert, oriented, forgetful. ASSESSMENT: 1. Right upper lung mass. 2. History of chronic obstructive pulmonary disease. 3. Coronary artery disease. 4. History of seizure disorder. 5. Right adrenal mass. 6. Hypertension. PLAN: Patient was also evaluated by palliative care. They were given option of hospice. I spoke to the patient's daughter, Cynthia Le. I asked her to make further decision after we have biopsy report. They will follow up with Dr. Cooley to decide if she is a candidate for chemotherapy or not. So she is being discharged home. Instruction was given to the nurse. She will get 5 mg Coumadin today. She will remain and continue her 3 mg daily dose and she will follow with her PMD. Beka Lucia MD
== END 2018-04-28 17:43 | disposition home or self-care (01) | DRG 181 ==
LOC: ED 14:17 → ERH 15:40 → UNDOADMIN 15:40 → ERH 16:44 → 3RSO 20:30
PROVIDERS: ADMIT Internal Medicine; ATTEND Internal Medicine
PROC: 0GB33ZX Excision of Right Adrenal Gland, Percutaneous Approach, Diagnostic (ICD-10-PCS; principal; 2018-04-27 10:00)
DX: C34.90 Malignant neoplasm of unspecified part of unspecified bronchus or lung (principal); C79.31 Secondary malignant neoplasm of brain; C78.7 Secondary malignant neoplasm of liver and intrahepatic bile duct; C79.71 Secondary malignant neoplasm of right adrenal gland; D64.9 Anemia, unspecified; E03.9 Hypothyroidism, unspecified; E27.9 Disorder of adrenal gland, unspecified; E78.00 Pure hypercholesterolemia, unspecified; E78.5 Hyperlipidemia, unspecified; G40.909 Epilepsy, unspecified, not intractable, without status epilepticus; H35.30 Unspecified macular degeneration; H91.90 Unspecified hearing loss, unspecified ear; I10 Essential (primary) hypertension; I25.10 Atherosclerotic heart disease of native coronary artery without angina pectoris; I48.0 Paroxysmal atrial fibrillation; I73.9 Peripheral vascular disease, unspecified; J44.9 Chronic obstructive pulmonary disease, unspecified; Z51.5 Encounter for palliative care; Z79.01 Long term (current) use of anticoagulants; Z79.82 Long term (current) use of aspirin; Z79.899 Other long term (current) drug therapy; Z85.51 Personal history of malignant neoplasm of bladder; Z86.718 Personal history of other venous thrombosis and embolism; Z86.73 Personal history of transient ischemic attack (TIA), and cerebral infarction without residual deficits; Z87.01 Personal history of pneumonia (recurrent); Z87.891 Personal history of nicotine dependence; Z90.49 Acquired absence of other specified parts of digestive tract; Z90.710 Acquired absence of both cervix and uterus; Z92.3 Personal history of irradiation; Z95.5 Presence of coronary angioplasty implant and graft

== ENCOUNTER 2018-06-10 08:42 | Emergency (ER) | payer MEDICARE ==
[2018-06-10 08:53] VITALS: BP 144/73; TEMP 99.1
--- NOTE | 2018-06-10 09:04 | ED PDOC ---
Arrival/HPI - General Chief Complaint: Altered Mental Status Time Seen by Provider: 06/10/18 08:43 Historian: Patient, Family - History of Present Illness Narrative History of Present Illness (Text): 06/10/18 11:56 Patient is an 82 yo female with diagnosis of lung cancer with metastatic disease , presents to the emergency department with daughter Cynthia after reportedly the patient's hospice aid felt that she was weaker and more confused this morning than typical. Daughter states that patient takes Restoril and Oxybutin each night for pain. The patient had difficulty transferring back to her bed last night after using bathroom, and patient was given ADDITIONAL restoril and Oxybutin at approximately 2 am as per her daughter. According to her daughter, this morning she was "weaker and tired". Reportedly the patient was assessed by a hospice aid at that time and hospice aid called ambulance to assess her for altered mental status. History is obtained from Cynthia, her daughter and patient. Patient currently does not express any shortness of breath or chest pain or acute abdominal pain. Daughter Cynthia is power of ip attorney and states patient is currently on hospice care and she wishes to take the patient home. Time/Duration: Prior to Arrival Symptom Onset: Gradual Past Medical History - Past History Past History: No Previous - Infectious Disease Hx of Infectious Diseases: None - Tetanus Immunization Tetanus Immunization: Unknown - Cardiac Hx Hypertension: Yes - Pulmonary Hx Chronic Obstructive Pulmonary Disease (COPD): Yes - Neurological HX Cerebrovascular Accident: Yes (2016) - HEENT Hx Cataracts: Yes (B/L SX) Hx Macular Degeneration: Yes - Renal Hx Renal Disorder: No - Endocrine/Metabolic Hx Hypothyroidism: Yes - Hematological/Oncological Hx Cancer: Yes (BLADDER 2004/ SKIN 2008 &2013) - Integumentary Hx Squamous Cell Carcinoma: Yes (NECK, ARM, EYEBROW) - Musculoskeletal/Rheumatological Hx Falls: Yes - Gastrointestinal Hx Gastrointestinal Disorders: Yes Hx Gall Bladder Disease: Yes (CHOLECYSTECTOMY) Other/Comment: CONSTIPATION - Genitourinary/Gynecological Other/Comment: NARAYAN - Psychiatric Hx Psychophysiologic Disorder: No Hx Substance Use: No - Surgical History Hx Cardiac Catheterization: Yes Hx Hysterectomy: Yes - Anesthesia Hx Anesthesia: Yes Hx Anesthesia Reactions: No Hx Malignant Hyperthermia: No - Suicidal Assessment Feels Threatened In Home Enviroment: No Family/Social History Family/Social History: Unknown Family HX Smoking Status: Former Smoker Hx Alcohol Use: No Hx Substance Use: No Hx Substance Use Treatment: No Allergies/Home Meds Allergies/Adverse Reactions: Allergies erythromycin base Allergy (Verified 06/10/18 08:46) VOMITING shellfish derived Allergy (Verified 06/10/18 08:46) VOMITING zolpidem tartrate [From Ambien] Allergy (Verified 06/10/18 08:46) RASH Home Medications: Home Meds Medication Instructions Recorded Confirmed Isosorbide Mononitrate [Imdur] 30 mg PO DAILY 03/16/12 06/10/18 Atorvastatin [Lipitor] 20 mg PO DAILY 03/30/15 06/10/18 Losartan [Cozaar] 50 mg PO DAILY 03/30/15 06/10/18 Vit A/Vit C/Vit E/Zinc/Copper 1 tab PO DAILY 03/30/15 06/10/18 [Preservision Areds Softgel] Warfarin [Coumadin] 3 mg PO DAILY 03/30/15 06/10/18 Albuterol/Ipratropium [Combivent 1 spr IH TID 12/07/15 06/10/18 Respimat] Aspirin [[place] Aspirin] 81 mg PO DAILY 12/07/15 06/10/18 Bifidobacterium Infantis [Align] 4 mg PO HS 12/07/15 06/10/18 Calcium Carbonate [Caltrate] 600 mg PO DAILY 12/07/15 06/10/18 Eszopiclone [Lunesta] 3 mg PO HS 12/07/15 06/10/18 Nitroglycerin 0.4 mg SL PRN PRN 12/07/15 06/10/18 amLODIPine [Norvasc] 2.5 mg PO DAILY 04/17/17 06/10/18 Metoprolol Tartrate [Lopressor] 25 mg PO DAILY 09/20/17 06/10/18 levETIRAcetam [Keppra] 250 mg PO BID 09/20/17 06/10/18 Review of Systems - Review of Systems Constitutional: Fatigue Respiratory: absent: SOB Gastrointestinal: absent: Abdominal Pain, Vomiting Musculoskeletal: Back Pain, Myalgias Skin: absent: Rash Neurological: Gait Changes. absent: Headache, Dizziness Psychiatric: absent: Suicidal Ideation Physical Exam - Physical Exam Narrative Physical Exam (Text): 06/10/18 09:15 Head: Atraumatic. Normocephalic. Eyes: PERRL. EOMI. Conjunctivae are not pale. ENT: Mucous membranes are moist and intact. Oropharynx is clear and symmetric. Neck: Supple. Full ROM. No JVD. No lymphadenopathy. Cardiovascular: Regular rate. Regular rhythm. No murmurs, rubs, or gallops. Distal pulses are 2+ and symmetric. Pulmonary/Chest: No evidence of respiratory distress. Clear to auscultation bilaterally. No wheezing, rales or rhonchi. Abdominal: Soft and non-distended. There is no tenderness. No rebound, guarding, or rigidity. No organomegaly. Good bowel sounds. Back: No CVA tenderness. Extremities: No edema. No cyanosis. No clubbing. Full range of motion in all extremities. No calf tenderness. Skin: Skin is warm and dry. No petechiae. No purpura. Neurological: Alert, awake, and oriented to person, place, time, and situation. Normal speech. Psychiatric: Good eye contact. Normal interaction, affect, and behavior. Vital Signs Reviewed: Yes Vital Signs Temp Pulse Resp BP Pulse Ox 06/10/18 08:51 99.1 F 82 16 144/73 94 L Temperature: Afebrile Blood Pressure: Normal Pulse: Regular Respiratory Rate: Normal Appearance: Positive for: Well-Appearing, Non-Toxic, Comfortable Mental Status: No: Lethargic Finger Stick Blood Glucose: 78 - Systems Exam Head: Present: Atraumatic Mouth: Present: Moist Mucous Membranes Respiratory/Chest: No: Respiratory Distress Cardiovascular: Present: Regular Rate and Rhythm, Murmurs Abdomen: No: Tenderness, Distention, Peritoneal Signs Upper Extremity: No: Edema Neurological: Present: Other (no acute focal deficits, will speak and answer questions, moves all extremities) Skin: No: Erythematous Psychiatric: Present: Alert. No: Normal Insight, Normal Concentration Medical Decision Making ED Course and Treatment: 06/10/18 13:09 Patient is present with her daughter Cynthia, who states she is power of ip attorney and also informs me that patient is under hospice care. She reports that hospice aid called ambulance to have patient assessed. The daughter believes patient is tired from taking additional pain medication, and she wishes to take patient home. I communicated with [facility] outpatient coordinator Abeba Wynne, who confirms that patient is hospice. As patient is hospice care and family/patient is in agreement, patient will be discharged home. Family does not wish for any testing or further studies be performed and confirms hospice care will be continued. 06/10/18 13:[address] Lucia aware, confirms patient's history. Disposition/Present on Arrival - Present on Arrival Any Indicators Present on Arrival: No History of DVT/PE: No History of Uncontrolled Diabetes: No Urinary Catheter: No History of Decub. Ulcer: No History Surgical Site Infection Following: None - Disposition Have Diagnosis and Disposition been Completed?: Yes Diagnosis: Hospice care patient Disposition: HOME/ ROUTINE Disposition Time: 11:00 Patient Plan: Discharge Patient Problems: Current Active Problems Problem Status Onset Hospice care patient Acute Condition: FAIR Additional Instructions: For any change in treatment plan, any change in hospice plan, any concerns of any of patient's symptoms, get rechecked. Follow instructions as per hospice care team. Referrals: Beka Lucia MD [Primary Care Provider] - Follow up with primary Forms: [employer] (Korean)
[2018-06-10 12:13] VITALS: PULSE 86; RESP 18; O2SAT 99
== END 2018-06-10 12:13 | disposition home or self-care (01) ==
LOC: ED 08:42
DX: Z51.5 Encounter for palliative care (principal); C34.90 Malignant neoplasm of unspecified part of unspecified bronchus or lung; I10 Essential (primary) hypertension; H35.30 Unspecified macular degeneration; Z86.73 Personal history of transient ischemic attack (TIA), and cerebral infarction without residual deficits; Z87.891 Personal history of nicotine dependence